=== PATIENT | male | born 1940 | race Caucasian/White ===

== ENCOUNTER 2018-10-14 11:46 | Outpatient (CLI) | payer MEDICARE ==
[~2018-10-14] VITALS: Ht 177.8 cm; Wt 87.1 kg
[2018-10-14] MEDS ORDERED: LISI10TA2 PO (12:03)
[2018-10-14] MEDS ORDERED: FLUT1DIS26 IH (12:03)
[2018-10-14] MEDS ORDERED: FEXO1TAB43 PO (12:03)
[2018-10-14 12:15] VITALS: BP 135/92
== END 2018-10-14 12:43 | disposition home or self-care (01) ==
LOC: PREOP 11:46
PROVIDERS: ATTEND Surgery
DX: Z01.818 Encounter for other preprocedural examination (principal)
CPT/HCPCS: 87081

== ENCOUNTER 2018-10-29 06:00 | Day surgery (SDC) | payer MEDICARE ==
[~2018-10-29] VITALS: Ht 175.3 cm; Wt 84.9 kg
[~2018-10-29 06:00] MED LIST: FEXO1TAB43 PO; FLUT1DIS26 IH; LISI10TA2 PO
--- OUTSIDE RECORDS SUMMARY | 2018-10-29 06:10 | XMS REPORT ---
Discharge Summary 2.1 Created on: CATHERINE FARFAN : 1940 Sex: Male Author Author GAVIN CORTES Unknown Address [address] [facility] [address] [place], [place] [id number] Care Team Providers Care Intelligence Operations Name Role Phone Xwatchlist [facility] Attending DARBY MIRANDA BUZZ [facility] Functional Status No Data Found Immunization Immunization Date Status Additional Notes Code Code System influenza, split (incl. purified surface antigen) 2004 Completed 15 CVX pneumococcal polysaccharide PPV23 06/03/2005 Completed 33 CVX influenza, unspecified formulation 07/15/2012 Completed 88 CVX pneumococcal, unspecified formulation 07/15/2012 Completed 109 CVX DTaP-Hep B-IPV 02/09/2002 Completed 110 CVX Mental Status No Data Found Results HEMOGLOBIN A1C - Collect Date/Time: 09/30/2018 06:48 [facility] [employer] ID: [id number] [address] [facility] [address], [place], [place], [address] [employer] ID: [id number] [address] [facility] [address], [place], [place], [address] LOINC: 49244-8 Test Value Unit Reference Range Code Code System HGB A1C 5.4 % L=4.0 H=6.4 24880-9 LOINC Est Avg Glucose 108.3 mg/dL 30153-1 LOINC LIPID PANEL - Collect Date/Time: 09/30/2018 06:48 [facility] [employer] ID: [id number] [address] [facility] [address], [place], [place], [address] [employer] ID: [id number] [address] [facility] [address], [place], [place], [address] LOINC: 84754-8 Test Value Unit Reference Range Code Code System TRIGLYCERIDES 52 MG/DL L=0 H=135 3043-7 LOINC CHOLESTEROL 139 MG/DL L=0 H=199 2093-3 LOINC HDL 37 MG/DL L=27 H=67 2085-9 LOINC TOT CHOL/HDL 3.8 L= 0.0 H=5.0 LDL (CALC) 92 MG/DL L= 0 H=129 06261-2 LOINC COMPREHENSIVE METABOLIC PANEL - Collect Date/Time: 09/30/2018 06:48 [place] [employer] ID: [id number] [address] [facility] [address], [place], [place], [id number] [facility] ID: [id number] [address] [facility] [address], [place], [place], [address] LOINC: 65531-7 Test Value Unit Reference Range Code Code System GLUCOSE 166 MG/DL L= 70 H=100 2345-7 LOINC SODIUM 138 MEQ/L L= 135 H=148 2951-2 LOINC POTASSIUM 4.6 MEQ/L L= 3.5 H=5.3 2823-3 LOINC CHLORIDE 105 MEQ/L L= 96 H=110 2075-0 LOINC CO2 27 MEQ/L L=22 H=29 2028-9 LOINC BUN 20 MG/DL L=8 H=22 3094-0 LOINC CREATININE 0.8 MG/DL L =0.6 H=1.6 2160-0 LOINC SGOT/AST 24 IU/L L=10 H=40 1920-8 LOINC SGPT/ALT 14 IU/L L=8 H=54 1742-6 LOINC ALK PHOS 110 IU/L L= 35 H=115 6768-6 LOINC TOTAL PROTEIN 6.7 G/DL L=5.5 H=8.5 2885-2 LOINC ALBUMIN 3.3 G/DL L= 3.1 H=5.4 1751-7 LOINC TOTAL BILI 0.4 MG/DL L =0.0 H=1.5 1975-2 LOINC CALCIUM 8.8 MG/DL L= 8.2 H=10.6 52975-7 LOINC AGE 77 yrs GFR NonAA 94 GFR AA 114 eGFR 94 mL/min/1.7 eGFR AA* >60 CBC W/ AUTO DIFF (RFLX MAN DIFF IF IND) - Collect Date/Time: 09/30/2018 06:48 [facility] ID: [id number] [address], [place], [place], [id number] [facility] ID: [id number] [address], [place], [place], [address] LOINC: 12165-0 Test Value Unit Reference Range Code Code System WBC 3.8 TH/CMM L=4.5 H=10.8 58916-7 LOINC RBC 4.53 ML/CMM L= 4.70 H=6.10 789-8 LOINC HGB 12.7 G/DL L=14.0 H=18.0 718-7 LOINC HCT 40.8 % L=42.0 H=52.0 4544-3 LOINC MCV 90 FL L=81 H =99 MCH 28.0 PG L=27.0 H=33.0 MCHC 31.1 G/DL L=31.0 H=36.0 RDW SD 48 FL L=36 H=50 RDW CV 14.3 % L=0.0 H=14.8 MPV 10.5 FL L=9.3 H=12.5 PLT 103 TH/CMM L=130 H=440 777-3 LOINC NRBC# 0.00 TH/CMM L= 0.00 H=0.00 NRBC% 0.0 /100WBC L= 0.0 H=2.0 %NEUT 80.9 % %LYMP 14.1 % %MONO 4.2 % %EOS 0.0 % %BASO 0.3 % #NEUT 3.05 TH/CMM L= 2.10 H=8.20 #LYMP 0.53 TH/CMM L= 0.90 H=5.20 #MONO 0.16 TH/CMM L= 0.16 H=1.00 #EOS 0.00 TH/CMM L= 0.00 H=0.80 #BASO 0.01 TH/CMM L= 0.00 H=0.20 MANUAL DIFF NOT IND OCCULT BLOOD iFOBT - Collect Date/Time: 09/29/2018 23:05 [facility] ID: [id number] [address] [facility] [address], [place], [place], [id number] [facility] ID: [id number] [address] [facility] [address], [place], [place], [address] LOINC: 2335-8 Test Value Unit Reference Range Code Code System OCC BLD STOOL NEGATIVE NORMAL: NEGATIVE 2335-8 LOINC RESPIRATORY PANEL - Collect Date/Time: 09/29/2018 16:28 [facility] ID: [id number] [address] [facility] [address], [place], [place], [address] [facility] ID: [id number] [address] [facility] [address], [place], [place], [id number] LOINC: Test Value Unit Reference Range Code Code System Adenovirus Not Detected NEG: Not Detected Coronavirus 229E Not Detected NEG: Not Detected Coronavirus HKU1 Not Detected NEG: Not Detected Coronavirus NL63 Not Detected NEG: Not Detected Coronavirus OC43 Not Detected NEG: Not Detected Human Metapneumoviru Not Detected NEG: Not Detected Human Rhinov/Enterov Not Detected NEG: Not Detected Influenza A Not Detected NEG: Not Detected Influenza B Not Detected NEG: Not Detected Parainfluenza Virus1 Not Detected NEG: Not Detected Parainfluenza Virus2 Not Detected NEG: Not Detected Parainfluenza Virus3 Not Detected NEG: Not Detected Parainfluenza Virus4 Not Detected NEG: Not Detected Resp Syncytial Virus DETECTED NEG: Not Detected Bordetella pertussis Not Detected NEG: Not Detected 64271-2 LOINC Chlamydophila pneumo Not Detected NEG: Not Detected Mycoplasma pneumonia Not Detected NEG: Not Detected Social History Type Status Start Date End Date Code Code System Smoking History Never smoker (Never Smoked) 995878428 SNOMED-CT Vital Signs Vital Sign Value Unit [place] Value [place] Unit Date/Time Recent/Initial? Code Code System Body Mass Index 24.98 kg/m2 09/30/2018 03:18 Most Recent 22038-0 LOINC Body Mass Index 25.12 kg/m2 09/29/2018 14:15 Initial 80533-0 LOINC Systolic Blood Pressure 143 mm[Hg] 09/30/2018 11:05 Most Recent 8480-6 LOINC Diastolic Blood Pressure 82 mm[Hg] 09/30/2018 11:05 Most Recent 8462-4 LOINC Systolic Blood Pressure 109 mm[Hg] 09/29/2018 14:15 Initial 8480-6 LOINC Diastolic Blood Pressure 71 mm[Hg] 09/29/2018 14:15 Initial 8462-4 LOINC Body Surface Area 2.06 m2 09/30/2018 03:18 Most Recent 3140-1 LOINC Body Surface Area 2.07 m2 09/29/2018 14:15 Initial 3140-1 LOINC Height 182.8800 cm 72.00 in 09/30/2018 03:18 Most Recent 8302-2 LOINC Height 182.8800 cm 72.00 in 09/29/2018 14:15 Initial 8302-2 LOINC O2 Saturation 91 % 09/30/2018 11:05 Most Recent 58208-5 LOINC O2 Saturation 94 % 09/29/2018 14:15 Initial 47760-5 LOINC Pulse 52.0 /min 09/30/2018 11:05 Most Recent 8867-4 LOINC Pulse 54.0 /min 09/29/2018 14:15 Initial 8867-4 LOINC Respiration 18 /min 09/30/2018 11:05 Most Recent 9279-1 LOINC Respiration 22 /min 09/29/2018 14:15 Initial 9279-1 LOINC Temperature 36.9 Micheline 98.4 F 09/30/2018 11:05 Most Recent 8310-5 LOINC Temperature 36.6 Micheline 97.8 F 09/29/2018 14:15 Initial 8310-5 LOINC Weight 83.5517 kg 184.20 lbs 09/30/2018 03:18 Most Recent 30517-4 LOINC Weight 84.0052 kg 185.20 lbs 09/29/2018 14:15 Initial 74290-9 [facility] Assessment You had the following problems: ASTHMA WITH EXACERBATION PNEUMONIA COPD HTN Hospital Discharge Instructions Should you have any questions prior to discharge, please contact a member of your healthcare team. If you have left the hospital and have any questions, please contact your primary care physician. HOME MEDICATION INSTRUCTIONS: Verbalizes understanding of instructions. HOME MEDS RETURNED TO PATIENT: N/A. HOME DIET: Regular, As tolerated. ACTIVITY INSTRUCTIONS(list limitations): Activity as Tolerated. SPECIAL INSTRUCTIONS: DIAGNOSIS: ASTHMA EXACERBATION, RSV GOALS: MET DISCHARGE TO HOME DISCONTINUE IV SITE COMPLETE PULSE OX STUDY PRIOR TO DISCHARGE SMOKING CESSATION: Smoking and second hand smoke is harmful, to your health.. Smoking has been linked to cancer, cardiac disease, COPD, and asthma.. For more information you can call:, 1-720-BEE-STOP, or 0-881-YYIADomosite.. A pamphlet on smoking was given to you, at admission.. PRIMARY CARE PROVIDER: MIRANDA PASTOR IMMUNIZATIONS GIVEN DURING HOSPITALIZATION: Influenza, Pneumococcal, PT. DENIES WANTING EITHER CONTACT PHYSICIAN IF YOU EXPERIENCE ANY: TEMPERATURE GREATER THAN 102, CHEST PAIN, SHORTNESS OF BREATH THAT DOESN'T IMPROVE WITH REST, ANYTHING ABNORMAL OR CONCERNING. FOLLOW UP APPOINTMENT: SEE MIRANDA PASTOR ON 10/07/2018 AT 8:30 A.M. PERSONAL ITEMS RETURNED: N/A. INSTRUCTIONS GIVEN AND DISCHARGE TO: Patient. INSTRUCTIONS GIVEN BY (TYPE IN NAME AND DATE) Nathan ANGELO RN SCRIPTS WRITTEN BY DOCTOR GIVEN TO PATIENT? PREDNISONE SCRIPT WAS SENT TO [facility] Reason For Referral Hospital Course You were admitted to [facility] on 09/29/2018 14:05 with a principal diagnosis of Respiratory syncytial virus pneumonia You were discharged from [facility] on 09/30/2018 15:00 Medications Medication Start Date End Date Route Frequency Dose Code Code System Levaquin 500MG Oral Tablet 09/30/2018 Unknown BY MOUTH DAILY 1 TABLET 993976 RxNorm predniSONE 20MG Oral Tablet 09/30/2018 Unknown BY MOUTH 1 TABLET 995531 RxNorm Lisinopril 10MG Oral Tablet 09/30/2018 Unknown ORAL DAILY 10 MILLIGRAMS 681540 RxNorm Ipratropium [place]-Albuterol Sulfate 0.5MG/3ML-3MG/3ML Inhalation Solution 09/30/2018 Unknown INHALATION NEEDED EVERY 4 HR 1 VIAL 8557657 RxNorm Vane 180MG Oral Tablet 09/30/2018 Unknown ORAL DAILY 180 MILLIGRAMS 326287 RxNorm ALBUTEROL SULFATE 90 MCG/ACTUATION INHALATION HFA AEROSOL INHALER 09/30/2018 Unknown INHALATION NEEDED EVERY 4 HR 2 PUFF RxNorm ADVAIR DISKUS 250-50 MCG/DOSE INHALATION BLISTER WITH DEVICE 09/30/2018 Unknown INHALATION DAILY 1 PUFF RxNorm Procedures Procedure Name Date Status Code Code System APPENDECTOMY completed 552421293 SNOMED CT Detached retina completed 25001890 SNOMED CT Hernia repair completed 85504512 SNOMED CT BIOPSY OF PROSTATE completed 831231643 SNOMED CT Implants No Data Found Problems Problem Start Date Resolved Date Status Code Code System ASTHMA WITH EXACERBATION active 703594300 SNOMED-CT PNEUMONIA active 691225987 SNOMED-CT COPD active 20124290 SNOMED-CT HTN active 33201784 SNOMED-CT ASTHMA 09/29/2018 resolved 103938899 SNOMED-CT ESSENTIAL HYPERTENSION 09/29/2018 resolved 94620346 SNOMED- CT Allergies Allergy Substance Reaction Severity Start Date Concern Status Code Code System SULFA (sulfonamide) Hives (SNOMED-CT: 629532640), Itching ( SNOMED-CT: 699544227) Mild to Moderate Active RxNorm SULFONAMIDE Mild to Moderate Active RxNorm CEPHALEXIN Mild to Moderate Active 2231 RxNorm AMOXICILLIN Hives (SNOMED-CT: 105829696) Mild to Moderate Active 723 RxNorm ASACOL Mild to Moderate Active 644196 RxNorm KEFLEX Mild to Moderate Active 992031 RxNorm PREDNISONE DOSE JENNIE Rash (SNOMED-CT: 613618932) Mild to Moderate Active RxNorm Plan of Treatment No Data Found Encounters No Data Found Goals No Data Found Discharge Medications No Data Found Discharge Diagnosis Discharge Diagnosis Diagnosis Code Start Date Respiratory syncytial virus pneumonia J121 09/29/2018 Health Concerns Section No Data Found
--- OUTSIDE RECORDS SUMMARY | 2018-10-29 06:10 | XMS REPORT ---
Patient Summary 2.1 Created on: CATHERINE FARFAN : 1940 Sex: Male Author Author GONZALO SEYMOUR Organization Unknown Address [address] [facility] [address] [place], [place] [id number] Care Team Providers Care Chairman Ceo Name Role Phone Watchlist [facility] Attending DARBY MIRANDA ANODISER [facility] Unavailable Functional Status No Data Found Immunization Immunization Date Status Additional Notes Code Code System influenza, split (incl. purified surface antigen) 2004 Completed 15 CVX pneumococcal polysaccharide PPV23 06/03/2005 Completed 33 CVX influenza, unspecified formulation 07/15/2012 Completed 88 CVX pneumococcal, unspecified formulation 07/15/2012 Completed 109 CVX DTaP-Hep B-IPV 02/09/2002 Completed 110 CVX Mental Status No Data Found Results LIPID PANEL - Collect Date/Time: 09/30/2018 06:48 [facility] [employer] ID: [id number] [address] [facility] [address], [place], [address] [employer] ID: [id number] [address] [facility] [address], [place], [place], [address] LOINC: 00180-3 Test Value Unit Reference Range Code Code System TRIGLYCERIDES 52 MG/DL L=0 H=135 3043-7 LOINC CHOLESTEROL 139 MG/DL L=0 H=199 2093-3 LOINC HDL 37 MG/DL L=27 H=67 2085-9 LOINC TOT CHOL/HDL 3.8 L= 0.0 H=5.0 LDL (CALC) 92 MG/DL L= 0 H=129 31376-1 LOINC COMPREHENSIVE METABOLIC PANEL - Collect Date/Time: 09/30/2018 06:48 [facility] [employer] ID: [id number] [address], [place], [place], [address] [place] [employer] ID: [id number] [address], [place], [place], [address] LOINC: 30906-0 Test Value Unit Reference Range Code Code [...] LOINC CALCIUM 8.8 MG/DL L= 8.2 H=10.6 04467-4 LOINC AGE 77 yrs GFR NonAA 94 GFR AA 114 eGFR 94 mL/min/1.7 eGFR AA* >60 CBC W/ AUTO DIFF (RFLX MAN DIFF IF IND) - Collect Date/Time: 09/30/2018 06:48 [place] [employer] ID: [id number] [address], [place], [id number] [facility] [employer] ID: [id number] [address], [place], [address] LOINC: 03514-2 Test Value Unit Reference Range Code Code System WBC 3.8 TH/CMM L=4.5 H=10.8 52220-8 LOINC RBC 4.53 ML/CMM L= 4.70 H=6.10 [...] BLOOD iFOBT - Collect Date/Time: 09/29/2018 23:05 [facility] [employer] [facility] ID: [id number] [address], [place], [place], [address] [place] [employer] ID: [id number] [address] [facility] [address], [place], [place], [address] LOINC: 2335-8 Test Value Unit Reference Range Code Code System OCC BLD STOOL NEGATIVE NORMAL: NEGATIVE 2335-8 LOINC RESPIRATORY PANEL - Collect Date/Time: 09/29/2018 16:28 [facility] ID: [id number] [address] [facility] [address], [place], [place], [address] [facility] ID: [id number] [address] [facility] [address], [place], [place], [address] LOINC: Test Value Unit Reference Range Code [...] Bordetella pertussis Not Detected NEG: Not Detected 05287-7 INC Chlamydophila pneumo Not Detected NEG: Not Detected Mycoplasma pneumonia Not Detected NEG: Not Detected Social History Type Status Start Date End Date Code Code System Smoking History Never smoker (Never Smoked) 344217468 SNOMED-CT Vital Signs Vital Sign Value Unit [place] Value [place] Unit Date/Time Recent/Initial? Code Code System Body Mass Index 24.98 kg/m2 09/30/2018 03:18 Most Recent 05634-8 LOINC Body Mass Index 25.12 kg/m2 09/29/2018 14:15 Initial 95013-3 LOINC Systolic Blood Pressure 137 mm[Hg] 09/30/2018 07:49 Most Recent 8480-6 LOINC Diastolic Blood Pressure 82 mm[Hg] 09/30/2018 07:49 Most Recent 8462-4 LOINC Systolic Blood Pressure 109 mm[Hg] 09/29/2018 14:15 Initial 8480-6 [facility] Diastolic Blood Pressure 71 mm[Hg] 09/29/2018 14:15 Initial 8462-4 INC Body Surface Area 2.06 m2 09/30/2018 03:18 Most Recent 3140-1 INC Body Surface Area 2.07 m2 09/29/2018 14:15 Initial 3140-1 INC Height 182.8800 cm 72.00 in 09/30/2018 03:18 Most Recent 8302-2 INC Height 182.8800 cm 72.00 in 09/29/2018 14:15 Initial 8302-2 INC O2 Saturation 100 % 09/30/2018 07:49 Most Recent 16006-2 INC O2 Saturation 94 % 09/29/2018 14:15 Initial 15797-5 INC Pulse 72.0 /min 09/30/2018 07:49 Most Recent 8867-4 [facility] Pulse 54.0 /min 09/29/2018 14:15 Initial 8867-4 INC Respiration 17 /min 09/30/2018 07:49 Most Recent 9279-1 INC Respiration 22 /min 09/29/2018 14:15 Initial 9279-1 INC Temperature 36.8 Micheline 98.2 F 09/30/2018 07:49 Most Recent 8310-5 INC Temperature 36.6 Micheline 97.8 F 09/29/2018 14:15 Initial 8310-5 INC Weight 83.5517 kg 184.20 lbs 09/30/2018 03:18 Most Recent 50425-9 [facility] Weight 84.0052 kg 185.20 lbs 09/29/2018 14:15 Initial 07056-9 [facility] Medications Medication Start Date End Date Route Frequency Dose Code Code System predniSONE 20MG Oral Tablet 09/30/2018 Unknown BY MOUTH 1 TABLET 172250 RxNorm Lisinopril 10MG Oral Tablet 09/30/2018 Unknown ORAL DAILY 10 MILLIGRAMS 978554 RxNorm Ipratropium [place]-Albuterol Sulfate 0.5MG/3ML-3MG/3ML Inhalation Solution 09/30/2018 Unknown INHALATION NEEDED EVERY 4 HR 1 VIAL 6746068 RxNorm Vane 180MG Oral Tablet 09/30/2018 Unknown ORAL DAILY 180 MILLIGRAMS 842463 RxNorm ALBUTEROL SULFATE 90 MCG/ACTUATION INHALATION HFA AEROSOL INHALER 09/30/2018 Unknown INHALATION NEEDED EVERY 4 HR 2 PUFF RxNorm ADVAIR DISKUS 250-50 MCG/DOSE INHALATION BLISTER WITH DEVICE 09/30/2018 Unknown INHALATION DAILY 1 PUFF RxNorm Assessment You had the following problems: ASTHMA [...] asthma.. For more information you can call:, [phone]-BZJ-STOP, or [phone]-[place].. A pamphlet on smoking was given to [...] TO PATIENT? PREDNISONE SCRIPT WAS SENT TO [facility] [place] Reason For Referral Procedures Procedure Name Date Status Code Code System APPENDECTOMY completed 904041371 SNOMED CT Detached retina completed 93205214 SNOMED CT Hernia repair completed 37590288 SNOMED CT BIOPSY OF PROSTATE completed 106417313 SNOMED CT Implants No Data Found Problems Problem Start Date Resolved Date Status Code Code System ASTHMA WITH EXACERBATION active 353731158 SNOMED-CT PNEUMONIA active 105744952 SNOMED-CT COPD active 96508141 SNOMED-CT HTN active 58109758 SNOMED-CT ASTHMA 09/29/2018 resolved 650559726 SNOMED-CT ESSENTIAL HYPERTENSION 09/29/2018 resolved 76276605 SNOMED- CT Allergies Allergy Substance Reaction Severity Start Date Concern Status Code Code System SULFA (sulfonamide) Hives (SNOMED-CT: 767746364), Itching ( SNOMED-CT: 054764854) Mild to Moderate Active RxNorm SULFONAMIDE Mild to Moderate Active RxNorm CEPHALEXIN Mild to Moderate Active 2231 RxNorm AMOXICILLIN Hives (SNOMED-CT: 245447542) Mild to Moderate Active 723 RxNorm ASACOL Mild to Moderate Active 961507 RxNorm KEFLEX Mild to Moderate Active 286943 RxNorm PREDNISONE DOSE JENNIE Rash (SNOMED-CT: 253599166) Mild to Moderate Active RxNorm Plan of Treatment HEMOGLOBIN A1C 09/30/2018 LOINC: 25734-1 CULTURE SPUTUM 09/29/2018 LOINC: 624-7 Encounters No Data Found Goals No Data Found Health Concerns Section No Data Found
--- OUTSIDE RECORDS SUMMARY | 2018-10-29 06:11 | XMS REPORT ---
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 Name Role Phone lAeja Newell PCP Aleja Newell PreferredProvider Allergies and Adverse Reactions Name Reaction Notes PENICILLINS SULFA (SULFONAMIDES) prednisone Blisters in Mouth, upset stomach dirrhea Plan of Treatment Planned Activity Comments Planned Date Planned Time Plan/Goal Liver function panel 07/02/2015 12:00 AM f/u prostate surgery, elevated PSA CT CHEST W/CONTRAST 06/17/2017 12:00 AM BMP 06/22/2017 12:00 AM TSH 07/22/2018 12:00 AM PSA 07/22/2018 12:[address] CHEST W/CONTRAST 07/28/2018 12:00 AM MRI of shoulder, with and without contrast material 12/29/2013 12:00 AM Medications Active Name Start Date Estimated Completion Date SIG Comments Advair Diskus 250-50 mcg/dose inhalation blister with device 10/13/2014 INHALE 1 PUFF BY INHALATION ROUTE 2 TIMES PER DAY IN THE MORNING AND EVENING APPROXIMATELY 12 HOURS APART Advair Diskus 250-50 mcg/dose inhalation blister with device 06/21/2015 INHALE 1 PUFF BY INHALATION ROUTE 2 TIMES PER DAY IN THE MORNING AND EVENING APPROXIMATELY 12 HOURS APART Advair Diskus 250-50 mcg/dose inhalation blister with device 12/18/2015 INHALE 1 PUFF BY INHALATION ROUTE 2 TIMES PER DAY IN THE MORNING AND EVENING APPROXIMATELY 12 HOURS APART Vane Allergy oral Advair Diskus 250-50 mcg/dose inhalation blister with device 07/26/2018 INHALE 1 PUFF BY INHALATION ROUTE 2 TIMES PER DAY IN THE MORNING AND EVENING APPROXIMATELY 12 HOURS APART ipratropium-albuterol 0.5 mg-3 mg(2.5 mg base)/3 mL inhalation solution for nebulization 07/27/2018 INHALE 3 MILLILITERS BY NEBULIZATION ROUTE 4 TIMES PER DAY AND NEEDED, UP TO 6 DOSES PER DAY lisinopril 10 mg oral tablet 09/02/2018 TAKE 2 TABLETS BY ORAL ROUTE DAILY Ventolin HFA 90 mcg/actuation inhalation HFA aerosol inhaler 09/02/2018 inhale 1 puff (90 mcg) by inhalation route every 4-6 hours as needed potassium chloride 20 mEq oral tablet extended release 10/07/2018 TAKE 1 TABLET (20 MEQ) BY ORAL ROUTE ONCE DAILY WITH FOOD FOR 3 DAYS Lasix 40 mg oral tablet 10/07/2018 TAKE 1 TABLET (40 MG) BY ORAL ROUTE ONCE DAILY FOR 3 DAYS Name Start Date Expiration Date SIG Comments Cipro 500 mg oral tablet 10/20/2011 10/27/2011 take 1 tablet (500 mg) by oral route every 12 hours for 7 days doxycycline hyclate 100 mg oral tablet 12/15/2011 12/25/2011 take 1 tablet ( 100 mg) by oral route every 12 hours for 10 days prednisone 20 mg oral tablet 12/15/2011 12/31/2011 take 60mg daily x4 days then 40mg x4 days then 20mg x4 days then 10mg x4 days. hydrochlorothiazide 25 mg oral tablet 01/30/2012 01/24/2013 take 1 tablet by oral route daily fexofenadine 60 mg oral tablet 07/15/2012 07/10/2013 take 1 tablet (60 mg) by oral route 2 times per day for 90 days doxycycline hyclate 100 mg oral tablet 07/30/2012 08/09/2012 take 1 tablet ( 100 mg) by oral route 2 times per day for 10 days doxycycline monohydrate 100 mg oral tablet 11/17/2012 11/24/2012 take 1 tablet (100 mg) by oral route 2 times per day for 7 days albuterol sulfate 90 mcg/actuation inhalation HFA aerosol inhaler 11/17/2012 06/15/2013 Inhale 2 puff (90 mcg/actuation) by inhalation route every four hours as needed for 30 days Cipro 500 mg oral tablet 06/02/2013 06/09/2013 take 1 tablet (500 mg) by oral route 2 times per day for 7 days Zithromax Z-Nikolas 250 mg oral tablet 12/29/2013 01/03/2014 take 2 tablets (500 mg) by oral route once daily for 1 day then 1 tablet (250 mg) by oral route once daily for 4 days Zithromax Z-Nikolas 250 mg oral tablet 07/03/2014 07/08/2014 take 2 tablets ( 500 mg) by oral route once daily for 1 day then 1 tablet (250 mg) by oral route once daily for 4 days Zithromax Z-Nikolas 250 mg oral tablet 09/08/2014 09/10/2014 take 2 tablets (500 mg ) by oral route once daily for 1 day then 1 tablet (250 mg) by oral route once daily for 4 days Macrobid 100 mg oral capsule 09/11/2014 09/18/2014 take 1 capsule (100 mg) by oral route every 12 hours with food for 7 days doxycycline monohydrate 100 mg oral tablet 08/12/2016 08/19/2016 take 1 tablet (100 mg) by oral route 2 times per day for 7 days Levaquin 500 mg oral tablet 08/25/2016 09/01/2016 take 1 tablet (500 mg) by oral route once daily for 7 days Levaquin 500 mg oral tablet 11/18/2016 11/25/2016 take 1 tablet (500 mg) by oral route once daily for 7 days Levaquin 500 mg oral tablet 03/13/2017 03/16/2017 take 1 tablet (500 mg) by oral route once daily for 7 days doxycycline monohydrate 100 mg oral tablet 06/17/2017 06/24/2017 take 1 tablet by oral route 2 times a day for 7 days doxycycline monohydrate 100 mg oral tablet 07/27/2018 08/03/2018 take 1 tablet by oral route 2 times a day for 7 days Levaquin 500 mg oral tablet 09/28/2018 10/05/2018 take 1 tablet (500 mg) by oral route once daily for 7 days Discontinued Name Start Date Discontinued Date SIG Comments Alphagan P 0.15 % ophthalmic drops 07/15/2012 instill 1 drop in affected eye 2 times a day Levaquin 750 mg oral tablet 11/08/2010 11/08/2010 take 1 tablet (750 mg) by oral route once daily for 7 days Medrol (Nikolas) 4 mg oral tablets,dose pack 11/08/2010 03/25/2011 take as directed Advair Diskus 250-50 mcg/dose inhalation blister with device 01/08/20112011 inhale 1 puff by inhalation route 2 times per day in the morning and evening approximately 12 hours apart for 90 days Brovana 15 mcg/2 mL inhalation solution for nebulization 08/29/2011 07/15/2012 inhale 2 milliliters (15 mcg) by inhalation route 2 times per day Zithromax Z-Nikolas 250 mg oral tablet 10/20/2011 10/20/2011 take 2 tablets (500 mg) by oral route once daily for 1 day then 1 tablet (250 mg) by oral route once daily for 4 days Pulmicort Flexhaler 180 mcg/actuation inhalation aerosol powdr breath activated 12/15/2011 07/15/2012 inhale 2 puffs (360 mcg) by inhalation route 2 times per day Advair HFA 230-21 mcg/actuation inhalation HFA aerosol inhaler 07/15/201208/27 inhale 2 puffs by inhalation route 2 times per day in the morning and evening prednisone 20 mg oral tablet 11/17/2012 06/02/2013 take 3 tabs x2 days then 2 tabs x2 days then 1 tab x2 days Tudorza Pressair 400 mcg/actuation inhalation aerosol powdr breath activated 06/02/2013 inhale 1 puff (400 mcg) by inhalation route every 12 hours prednisone 20 mg oral tablet 06/02/2013 08/17/2013 take 2 tabs x2 days then 1 tab x4 days prednisone 20 mg oral tablet 08/17/2013 12/29/2013 take 60mg x2 days then 40mg x2 days then 1 tablet daily x4 days. cyclobenzaprine 10 mg oral tablet 12/29/2013 07/03/2014 take 1 tablet by mouth daily at HS albuterol sulfate 90 mcg/actuation inhalation HFA aerosol inhaler 02/21/2014 INHALE 2 PUFF (90 MCG/ACTUATION) BY INHALATION ROUTE EVERY FOUR HOURS NEEDED FOR 30 DAYS hydrochlorothiazide 25 mg oral tablet 05/01/2014 07/02/2015 TAKE 1 TABLET BY ORAL ROUTE DAILY Advair Diskus 250-50 mcg/dose inhalation blister with device 08/04/20142016 inhale 1 puff by inhalation route 2 times per day in the morning and evening approximately 12 hours apart change to Breo prednisone 20 mg oral tablet 07/02/2015 12/18/2015 take 60mg x2 days, then 40mg x2 days, then 20mg x4 days Breo Ellipta 200-25 mcg/dose inhalation blister with device 08/12/20162016 inhale 1 puff by inhalation route once daily at the same time each day Incruse Ellipta 62.5 mcg/actuation inhalation blister with device 08/12/2016 inhale 1 puff (62.5 mcg) by inhalation route once daily at the same time each day prednisone 20 mg oral tablet 08/25/2016 08/25/2016 Take 1 tab daily for 5 days ProAir HFA 90 mcg/actuation inhalation HFA aerosol inhaler 09/02/20182018 INHALE 1 PUFF (90 MCG) BY INHALATION ROUTE EVERY 4-6 HOURS NEEDED Changed to ventolin Problem List Description Status Onset Asthma Active Chronic Obstructive Pulmonary Disease Active Hypertension Active Essential hypertension Active 03/09/2017 Chronic obstructive pulmonary disease with acute exacerbation Active 2016 Vital Signs Date Time BP-Sys(mm[Hg] BP-Muriel(mm[Hg]) HR(bpm) RR(rpm) Temp WT HT HC BMI BSA BMI Percentile O2 Sat(%) 10/06/2018 11:15:00 AM 150 mmHg 90 mmHg 102 bpm 21 rpm 98.6 F 194.25 lbs 72 in 26.3448 kg/m 2.1157 m 90 % 09/29/2018 1:15:00 PM 138 mmHg 76 mmHg 55 bpm 24 rpm 98.2 F 193 lbs 72 in 26.18 kg/m2 2.11 m2 93 % 09/28/2018 3:18:00 PM 138 mmHg 80 mmHg 99 bpm 20 rpm 98.8 F 195 lbs 72 in 26.4465 kg/m 2.1197 m 88 % 09/02/2018 1:22:00 PM 130 mmHg 74 mmHg 86 bpm 18 rpm 98.6 F 198 lbs 72 in 26.85 kg/m2 2.14 m2 96 % 07/22/2018 9:38:00 AM 150 mmHg 100 mmHg 86 bpm 18 rpm 98.6 F 191 lbs 72 in 25.904 kg/m 2.0979 m 95 % 06/17/2017 9:33:00 AM 137 mmHg 80 mmHg 78 bpm 18 rpm 97.8 F 192 lbs 72 in 26.04 kg/m2 2.10 m2 97 % 03/09/2017 8:58:00 AM 148 mmHg 84 mmHg 93 bpm 18 rpm 97.2 F 197.375 lbs 72 in 26.7686 kg/m 2.1326 m 95 % 11/18/2016 10:16:00 AM 160 mmHg 90 mmHg 102 bpm 18 rpm 98.2 F 202 lbs 72 in 27.40 kg/m2 2.16 m2 93 % 08/12/2016 1:28:00 PM 132 mmHg 72 mmHg 84 bpm 18 rpm 97.5 F 208.25 lbs 72 in 28.2435 kg/m 2.1906 m 97 % 12/18/2015 8:59:00 AM 132 mmHg 66 mmHg 78 bpm 18 rpm 97.5 F 194.25 lbs 72 in 26.34 kg/m2 2.12 m2 95 % 07/02/2015 2:12:00 PM 134 mmHg 68 mmHg 110 bpm 18 rpm 97.8 F 200.5 lbs 72 in 27.1924 kg/m 2.1494 m 100 % 09/05/2014 11:08:00 AM 120 mmHg 60 mmHg 88 bpm 20 rpm 98.8 F 204.6 lbs 72 in 27.75 kg/m2 2.17 m2 92 % 07/03/2014 4:03:00 PM 124 mmHg 78 mmHg 90 bpm 22 rpm 98.2 F 207.8 lbs 72 in 28.1825 kg/m 2.1882 m 95 % 12/29/2013 1:33:00 PM 126 mmHg 76 mmHg 95 bpm 18 rpm 101.4 F 207.125 lbs 72 in 28.09 kg/m2 2.18 m2 91 % 08/17/2013 10:42:00 AM 132 mmHg 68 mmHg 93 bpm 18 rpm 97.6 F 209.5 lbs 72 in 28.413 kg/m 2.1971 m 92 % 06/02/2013 11:27:00 AM 136 mmHg 74 mmHg 111 bpm 18 rpm 98.5 F 204.5 lbs 72 in 27.73 kg/m2 2.17 m2 93 % 11/29/2012 11:14:00 AM 142 mmHg 70 mmHg 88 bpm 20 rpm 98.3 F 211.125 lbs 97 % 11/17/2012 10:55:00 AM 132 mmHg 68 mmHg 86 bpm 20 rpm 97.6 F 207.5 lbs 72 in 28.1418 kg/m 2.1866 m 93 % 07/15/2012 9:37:00 AM 128 mmHg 66 mmHg 72 bpm 18 rpm 97.8 F 204.375 lbs 72 in 27.72 kg/m2 2.17 m2 99 % 12/15/2011 3:15:00 PM 130 mmHg 64 mmHg 75 bpm 20 rpm 99.1 F 205.5 lbs 72 in 27.8705 kg/m 2.1761 m 94 % 10/20/2011 11:00:00 AM 140 mmHg 80 mmHg 110 bpm 18 rpm 99.2 F 89 % 08/29/2011 9:32:00 AM 142 mmHg 82 mmHg 93 bpm 18 rpm 97.4 F 205.5 lbs 72 in 27.8705 kg/m 2.1761 m 92 % 03/24/2011 9:31:00 AM 142 mmHg 74 mmHg 88 bpm 24 rpm 97.8 F 211 lbs 72 in 28.62 kg/m2 2.20 m2 92 % 01/08/2011 10:51:00 AM 160 mmHg 90 mmHg 69 bpm 22 rpm 98.2 F 207 lbs 94 % 11/08/2010 1:45:00 PM 138 mmHg 78 mmHg 68 bpm 22 rpm 100.3 F 207.125 lbs 91 % 08/26/2010 12:14:00 PM 138 mmHg 80 mmHg 72 bpm 20 rpm 97.9 F 205.25 lbs 12/20/2009 9:48:00 AM 154 mmHg 100 mmHg 80 bpm 16 rpm 98 F 214.25 lbs 08/29/2009 9:45:00 AM 122 mmHg 84 mmHg 60 bpm 20 rpm 98.8 F 212 lbs 72 in 28.7521 kg/m 2.2102 m Social History Name Description Comments denies alcohol use Regular Exercise Tobacco Never smoker 12/18/2015 - History of Procedures Date Ordered Description Order Status 12/17/2015 12:00 AM COMPLETE CBC W/AUTO DIFF WBC Reviewed 12/17/2015 12:00 AM COMPREHEN METABOLIC PANEL Reviewed 12/17/2015 12:00 AM LIPID PANEL Reviewed 12/17/2015 12:00 AM ASSAY OF PSA TOTAL Reviewed 12/17/2015 12:00 AM ASSAY OF PSA FREE Reviewed 12/18/2015 12:00 AM Decadron, Per 1 Mg [facility] [place] [address]-55 Reviewed 12/18/2015 12:00 AM Depo-Medrol 40mg Reviewed 08/29/2011 12:00 AM THER/PROPH/DIAG INJ SC/IM Reviewed 08/29/2011 12:00 AM Depo-Medrol 80 mg NDC#[id number] Reviewed 08/29/2011 12:00 AM Depo-Medrol 40 mg NDC#[id number] Reviewed 10/22/2011 12:00 AM URINALYSIS AUTO W/O SCOPE Reviewed 10/20/2011 12:00 AM URINE CULTURE/COLONY COUNT Reviewed 08/12/2016 12:00 AM Decadron, Per 1 Mg NDC# [address]-81 Reviewed 08/12/2016 12:00 AM Depo-Medrol 40mg Injection Reviewed 08/12/2016 12:00 AM ELECTROCARDIOGRAM TRACING Reviewed 12/15/2011 12:00 AM THER/PROPH/DIAG INJ SC/IM Reviewed 12/15/2011 12:00 AM Decadron 1 mg NDC#[id number] (Chad) Reviewed 12/15/2011 12:00 AM Depo-Medrol 80 mg NDC#[id number] Reviewed 11/18/2016 12:00 AM Decadron, Per 1 Mg N[facility]# [address]-54 Reviewed 11/18/2016 12:00 AM Depo-Medrol 40mg Injection Reviewed 03/09/2017 12:00 AM COMPLETE CBC W/AUTO DIFF WBC Reviewed 03/09/2017 12:00 AM COMPREHEN METABOLIC PANEL Reviewed 03/09/2017 12:00 AM LIPID PANEL Reviewed 03/09/2017 12:00 AM Decadron, Per 1 Mg NDC# [address]-20 Reviewed 03/09/2017 12:00 AM Depo-Medrol 40mg Injection Reviewed 03/09/2017 12:00 AM CHEST X-RAY 2VW FRONTAL&LATL Reviewed 03/09/2017 12:00 AM ASSAY THYROID STIM HORMONE Reviewed 06/17/2017 12:00 AM Decadron, Per 1 Mg NDC# [address]-56 Reviewed 06/17/2017 12:00 AM Depo-Medrol, Per 80 Mg NDC#6627-2788-14 Reviewed 06/17/2017 12:00 AM CHEST X-RAY 2VW FRONTAL&LATL Reviewed 07/15/2012 12:00 AM THER/PROPH/DIAG INJ SC/IM Reviewed 07/15/2012 12:00 AM Decadron 1 mg NDC#[id number] (Chad) Reviewed 07/15/2012 12:00 AM Depo-Medrol 80 mg [facility] [place]#[id number] Reviewed 07/15/2012 12:00 AM COMPLETE CBC W/AUTO DIFF WBC Reviewed 07/15/2012 12:00 AM COMPREHEN METABOLIC PANEL Reviewed 07/15/2012 12:00 AM LIPID PANEL Reviewed 07/15/2012 12:00 AM IMMUNIZATION ADMIN EACH ADD Reviewed 07/15/2012 12:00 AM IMMUNIZATION ADMIN Reviewed 07/15/2012 12:00 AM FLU VACCINE 3 YRS & > IM Reviewed 07/15/2012 12:00 AM PNEUMOCOCCAL VACC 23 CHANTELLE IM Reviewed 11/29/2012 12:00 AM ELECTROCARDIOGRAM COMPLETE Reviewed 07/22/2018 12:00 AM COMPLETE CBC W/AUTO DIFF WBC Returned 07/22/2018 12:00 AM COMPREHEN METABOLIC PANEL Returned 07/22/2018 12:00 AM LIPID PANEL Returned 07/22/2018 12:00 AM Decadron, Per 1 Mg [facility] [place]# [address]-61 Reviewed 07/22/2018 12:00 AM Depo-Medrol, Per 80 Mg [facility] [place]#8796-9492-33 Reviewed 07/22/2018 12:00 AM CHEST X-RAY 2VW FRONTAL&LATL Returned 07/28/2018 12:[address] ABD & PELV W/CONTRAST Returned 09/28/2018 12:00 AM COMPLETE CBC W/AUTO DIFF WBC Returned 09/28/2018 12:00 AM COMPREHEN METABOLIC PANEL Returned 09/28/2018 12:00 AM Decadron, Per 1 Mg [facility] [place]# [address]-55 Reviewed 09/28/2018 12:00 AM CHEST X-RAY 2VW FRONTAL&LATL Returned 09/28/2018 12:00 AM ASSAY OF NATRIURETIC PEPTIDE Returned 10/06/2018 12:00 AM COMPLETE CBC W/AUTO DIFF WBC Returned 10/06/2018 12:00 AM COMPREHEN METABOLIC PANEL Returned 10/06/2018 12:00 AM ASSAY OF NATRIURETIC PEPTIDE Returned 10/06/2018 12:00 AM CHEST X-RAY 2VW FRONTAL&LATL Returned 12/20/2009 12:00 AM IMMUNIZATION ADMIN Reviewed 12/20/2009 12:00 AM TETANUS VACCINE IM Reviewed 01/23/2010 12:00 AM COMPLETE CBC W/AUTO DIFF WBC Reviewed 01/23/2010 12:00 AM COMPREHEN METABOLIC PANEL Reviewed 01/23/2010 12:00 AM LIPID PANEL Reviewed 01/23/2010 12:00 AM ASSAY THYROID STIM HORMONE Reviewed 01/23/2010 12:00 AM ASSAY OF PSA TOTAL Reviewed 08/26/2010 12:00 AM THER/PROPH/DIAG INJ SC/IM Reviewed 08/26/2010 12:00 AM Decadron 1 mg NDC#[id number] (Chad) Reviewed 08/26/2010 12:00 AM Depo-Medrol 80 mg NDC#[id number] Reviewed 08/26/2010 12:00 AM THER/PROPH/DIAG INJ SC/IM Reviewed 08/26/2010 12:00 AM Decadron 8 mg NDC#[id number] (Chad) Reviewed 08/26/2010 12:00 AM Depo-Medrol 80 mg NDC#[id number] Reviewed 08/29/2009 12:00 AM FLU VACCINE 3 YRS & > IM Reviewed 08/29/2009 12:00 AM FLU VACCINE 3 YRS & > IM Reviewed 08/29/2009 12:00 AM COMPREHEN METABOLIC PANEL Reviewed 08/29/2009 12:00 AM LIPID PANEL Reviewed 08/29/2009 12:00 AM ASSAY THYROID STIM HORMONE Reviewed 08/29/2009 12:00 AM ASSAY OF PSA TOTAL Reviewed 11/08/2010 12:00 AM COMPLETE CBC W/AUTO DIFF WBC Reviewed 11/08/2010 12:00 AM COMPREHEN METABOLIC PANEL Reviewed 11/08/2010 12:00 AM CHEST X-RAY 2VW FRONTAL&LATL Reviewed 07/03/2014 12:00 AM THER/PROPH/DIAG INJ SC/IM Reviewed 07/03/2014 12:00 AM Decadron injection Reviewed 07/03/2014 12:00 AM Depo-Medrol 80 mg NDC#[address]-00 Reviewed 09/05/2014 11:17 AM URINALYSIS AUTO W/O SCOPE Reviewed 09/05/2014 12:00 AM URINE CULTURE/COLONY COUNT Reviewed 01/08/2011 12:00 AM Depo-Medrol 80 mg NDC#[id number] Reviewed 01/08/2011 12:00 AM Decadron 8 mg NDC#[id number] (Chad) Reviewed 01/09/2015 12:00 AM COMPLETE CBC W/AUTO DIFF WBC Reviewed 01/09/2015 12:00 AM COMPREHEN METABOLIC PANEL Reviewed 01/09/2015 12:00 AM LIPID PANEL Reviewed 01/09/2015 12:00 AM ASSAY OF PSA FREE Reviewed Results Summary Date and Description Results 08/29/2009 10:45 AM Cholest Cry Stone Ql IR 0.0 %Colonoscopy-Women and Men over 50 Declined PSA SerPl-mCnc 0.0 ng/mL 01/23/2010 8:29 AM TRIGLYCERIDES 58.0 mg/dLCHOLESTEROL 185.0 mg/dLHDL 45.0 mg/ dLTOT CHOL/HDL 4.1 LDL (CALC) 128.0 mg/dLPSA TOTAL 4.480 ng/mLTSH 1.370 uIU/ mLGLUCOSE 104.0 mg/dLSODIUM 140.0 mmol/LPOTASSIUM 4.20 mmol/LCHLORIDE 104.0 mmol /LCO2 29.0 mmol/LBUN 15.0 mg/dLCREATININE 0.80 mg/dLSGOT/AST 31.0 IU/LSGPT/ALT 39.0 IU/LALK PHOS 137.0 IU/LTOTAL PROTEIN 7.20 g/dLALBUMIN 3.60 g/dLTOTAL BILI 0.50 mg/dLCALCIUM 9.10 mg/dLAGE 69 GFR NonAA 96 GFR AA 116 eGFR >60 mL/min/1.73 m2eGFR AA* >60 09/24/2010 8:50 AM PSA TOTAL 8.90 ng/mL 11/08/2010 2:16 PM WBC 8.8 RBC 5.37 HGB 15.30 g/dLHCT 46.30 %MCV 86.0 fLMCH 28.50 pgMCHC 33.0 g/dLRDW SD 48 RDW CV 15.20 %MPV 11.0 fLPLT 97 NRBC# 0.00 NRBC % 0.0 %NEUT 69.90 %%LYMP 14.70 %%MONO 13.40 %%EOS 1.30 %%BASO 0.70 %#NEUT 6.15 # LYMP 1.29 #MONO 1.18 #EOS 0.11 #BASO 0.06 MANUAL DIFF NOT IND GLUCOSE 100.0 mg/ dLSODIUM 137.0 mmol/LPOTASSIUM 3.70 mmol/LCHLORIDE 99.0 mmol/LCO2 25.0 mmol/ LBUN 14.0 mg/dLCREATININE 1.0 mg/dLSGOT/AST 30.0 IU/LSGPT/ALT 22.0 IU/LALK PHOS 78.0 IU/LTOTAL PROTEIN 7.10 g/dLALBUMIN 3.90 g/dLTOTAL BILI 0.80 mg/dLCALCIUM 8.80 mg/dLAGE 70 GFR NonAA 74 GFR AA 90 eGFR >60 mL/min/1.73 m2eGFR AA* >60 07/28/2012 9:00 AM GLUCOSE 120.0 mg/dLSODIUM 138.0 mmol/LPOTASSIUM 3.50 mmol/ LCHLORIDE 100.0 mmol/LCO2 30.0 mmol/LBUN 17.0 mg/dLCREATININE 0.90 mg/dLSGOT/ AST 23.0 IU/LSGPT/ALT 34.0 IU/LALK PHOS 102.0 IU/LTOTAL PROTEIN 6.80 g/ dLALBUMIN 3.60 g/dLTOTAL BILI 1.40 mg/dLCALCIUM 9.20 mg/dLAGE 71 GFR NonAA 84 GFR AA 102 eGFR 60 eGFR AA* 60 WBC 14.2 RBC 4.88 HGB 14.10 g/dLHCT 41.90 %MCV 86.0 fLMCH 28.90 pgMCHC 33.70 g/dLRDW SD 47 RDW CV 15.0 %MPV 10.40 fLPLT 150 NRBC# 0.00 NRBC% 0.0 %NEUT 81.50 %%LYMP 8.0 %%MONO 9.0 %%EOS 1.10 %%BASO 0.40 %# NEUT 11.59 #LYMP 1.13 #MONO 1.28 #EOS 0.15 #BASO 0.05 MANUAL DIFF SEE BELOW SEGS 73 BANDS 9 LYMPHS 9 MONOS 7 EOS 2.0 %TRIGLYCERIDES 77.0 mg/dLCHOLESTEROL 144.0 mg/dLHDL 32.0 mg/dLTOT CHOL/HDL 4.5 LDL (CALC) 97.0 mg/dL 09/05/2014 11:17 AM Bilirub Ur Ql Strip small Glucose Ur-sCnc negative Hgb Ur Ql Strip blood large Ketones Ur Ql Strip trace Nitrite Ur Ql Strip positive pH Ur-LsCnc 6 Prot Ur Ql Strip 30 Sp Gr Ur Qn 1.015 Urobilinogen Ur-mCnc 1.0 WBC Est Ur Ql Strip large 06/21/2015 9:32 AM GLUCOSE 94.0 mg/dLSODIUM 140.0 mmol/LPOTASSIUM 4.10 mmol/ LCHLORIDE 105.0 mmol/LCO2 27.0 mmol/LBUN 13.0 mg/dLCREATININE 0.80 mg/dLSGOT/ AST 24.0 IU/LSGPT/ALT 23.0 IU/LALK PHOS 137.0 IU/LTOTAL PROTEIN 7.0 g/dLALBUMIN 3.70 g/dLTOTAL BILI 1.0 mg/dLCALCIUM 9.0 mg/dLAGE 74 GFR NonAA 95 GFR AA 115 eGFR >60 mL/min/1.73meGFR AA* >60 TRIGLYCERIDES 70.0 mg/dLCHOLESTEROL 147.0 mg /dLHDL 36.0 mg/dLTOT CHOL/HDL 4.1 LDL (CALC) 97.0 mg/dLWBC 8.4 RBC 5.23 HGB 14.90 g/dLHCT 45.70 %MCV 87.0 fLMCH 28.50 pgMCHC 32.60 g/dLRDW SD 47 RDW CV 14.80 %MPV 10.10 fLPLT 139 NRBC# 0.00 NRBC% 0.0 %NEUT 74.30 %%LYMP 15.80 %%MONO 6.20 %%EOS 3.30 %%BASO 0.40 %#NEUT 6.26 #LYMP 1.33 #MONO 0.52 #EOS 0.28 #BASO 0.03 MANUAL DIFF NOT IND PSA TOTAL 7.650 ng/mL 12/18/2015 8:35 AM TRIGLYCERIDES 48.0 mg/dLCHOLESTEROL 135.0 mg/dLHDL 38.0 mg/ dLTOT CHOL/HDL 3.6 LDL (CALC) 87.0 mg/dLGLUCOSE 92.0 mg/dLSODIUM 141.0 mmol/ LPOTASSIUM 3.90 mmol/LCHLORIDE 103.0 mmol/LCO2 28.0 mmol/LBUN 10.0 mg/ dLCREATININE 0.80 mg/dLSGOT/AST 19.0 IU/LSGPT/ALT 16.0 IU/LALK PHOS 106.0 IU/ LTOTAL PROTEIN 7.30 g/dLALBUMIN 3.60 g/dLTOTAL BILI 0.70 mg/dLCALCIUM 9.0 mg/ dLAGE 75 GFR NonAA 95 GFR AA 115 eGFR >60 mL/min/1.73meGFR AA* >60 PSA TOTAL 10.870 ng/mLWBC 9.5 RBC 5.29 HGB 14.60 g/dLHCT 45.80 %MCV 87.0 fLMCH 27.60 pgMCHC 31.90 g/dLRDW SD 44 RDW CV 13.90 %MPV 9.70 fLPLT 183 NRBC# 0.00 NRBC% 0.0 %NEUT 71.10 %%LYMP 12.70 %%MONO 7.40 %%EOS 7.70 %%BASO 0.80 %#NEUT 6.75 # LYMP 1.21 #MONO 0.70 #EOS 0.73 #BASO 0.08 MANUAL DIFF NOT IND 03/10/2017 8:24 AM WBC 11.8 RBC 4.99 HGB 14.0 g/dLHCT 43.10 %MCV 86.0 fLMCH 28.10 pgMCHC 32.50 g/dLRDW SD 45 RDW CV 14.10 %MPV 10.30 fLPLT 153 NRBC# 0.00 NRBC% 0.0 %NEUT 81.80 %%LYMP 10.10 %%MONO 6.60 %%EOS 0.50 %%BASO 0.40 %#NEUT 9.64 #LYMP 1.19 #MONO 0.78 #EOS 0.06 #BASO 0.05 MANUAL DIFF NOT IND TSH 0.660 uIU/mLGLUCOSE 121.0 mg/dLSODIUM 139.0 mmol/LPOTASSIUM 4.20 mmol/LCHLORIDE 106.0 mmol/LCO2 26.0 mmol/LBUN 18.0 mg/dLCREATININE 0.90 mg/dLSGOT/AST 14.0 IU/LSGPT/ ALT 10.0 IU/LALK PHOS 104.0 IU/LTOTAL PROTEIN 7.60 g/dLALBUMIN 3.70 g/dLTOTAL BILI 0.60 mg/dLCALCIUM 9.50 mg/dLAGE 76 GFR NonAA 82 GFR AA 99 eGFR >60 mL/min/ 1.73meGFR AA* >60 TRIGLYCERIDES 56.0 mg/dLCHOLESTEROL 161.0 mg/dLHDL 41.0 mg/ dLTOT CHOL/HDL 3.9 LDL (CALC) 109.0 mg/dL 07/22/2018 9:50 AM Falls in last 6 months? Yes Unsteady or worry about falling ? Yes Fall Risk Assessment At Risk History Of Immunizations Name Date Admin Mfg Name Mfg Code Trade Name Lot# Route Inj Vis Given Vis Pub CVX Influenza 07/15/2012 [employer] FLUZONE [id number] Intramuscular Left Deltoid 07/15/2012 02/09/2012 141 X 07/15/2012 [employer] MSD PNEUMOVAX 23 [id number] Intramuscular Left Deltoid 07/15/2012 09/11/2011 999 History of Past Illness Name Date of Onset Comments Rhinitis, Allergic Flu Aug 29 2009 10:31AM Benign Essential Hypertension Aug 29 2009 9:54AM Asthma Aug 29 2009 9:54AM Rhinitis, Allergic Aug 29 2009 9:54AM Screening For Prostate Cancer Aug 29 2009 9:54AM Asthma Hypertension Chronic Obstructive Pulmonary Disease Essential Hypertension Dec 20 2009 9:51AM Asthma Dec 20 2009 9:51AM Rhinitis, Allergic Dec 20 2009 9:51AM Hypertension Jan 23 2010 8:27AM Prostate screening Jan 23 2010 8:27AM Bronchitis, Acute Aug 26 2010 12:15PM Pneumonia Nov 08 2010 1:46PM Cough Nov 08 2010 1:46PM Chronic Obstructive Pulmonary Disease-Acute Exacerbation Jan 08 2011 10:53AM Essential hypertension 03/09/2017 Chronic obstructive pulmonary disease with acute exacerbation 03/09/2017 Chronic Obstructive Pulmonary Disease Mar 24 2011 9:29AM Chronic Obstructive Pulmonary Disease Aug 29 2011 9:35AM Chronic Obstructive Pulmonary Disease Exacerbation Oct 20 2011 11:02AM Chronic Obstructive Pulmonary Disease Dec 15 2011 3:18PM Hypertension Jul 15 2012 9:39AM Chronic Obstructive Pulmonary Disease Jul 15 2012 9:39AM Chronic Obstructive Pulmonary Disease, Exacerbation Nov 17 2012 10:57AM Chronic Obstructive Pulmonary Disease Nov 29 2012 11:29AM Abdominal Pain Jun 02 2013 11:30AM Chronic Obstructive Pulmonary Disease, Exacerbation Jun 02 2013 11:30AM Chronic Obstructive Pulmonary Disease, Exacerbation Aug 17 2013 10:44AM Pain in joint; shoulder region, Left Dec 29 2013 1:36PM Chronic Obstructive Pulmonary Disease, Exacerbation Dec 29 2013 1:36PM Asthma Jul 03 2014 4:04PM COPD exacerbation Jul 03 2014 4:04PM Urinary Tract Infection Sep 05 2014 11:11AM Bronchitis Sep 05 2014 11:11AM Hypertension Jan 09 2015 1:41PM Hyperlipidemia Jan 09 2015 1:41PM Asthma Jan 09 2015 1:41PM COPD (chronic obstructive pulmonary disease) Jan 09 2015 1:41PM Screening PSA (prostate specific antigen) Jan 09 2015 1:41PM Elevated alkaline phosphatase level Jul 02 2015 2:14PM Chronic bronchitis, unspecified chronic bronchitis type Jul 02 2015 2:14PM Hypertension Jul 02 2015 2:14PM History of prostate surgery Jul 02 2015 2:14PM Elevated PSA Jul 02 2015 2:14PM Screening PSA (prostate specific antigen) Dec 17 2015 5:01PM COPD (chronic obstructive pulmonary disease) Dec 17 2015 5:01PM Hypertension Dec 17 2015 5:01PM Hyperlipidemia Dec 17 2015 5:01PM Chronic obstructive pulmonary disease with acute exacerbation Dec 18 2015 9: 00AM Irregular heart rhythm Aug 12 2016 1:30PM Chronic obstructive pulmonary disease with acute exacerbation Aug 12 2016 1: 30PM Chronic obstructive pulmonary disease with acute exacerbation Nov 18 2016 10: 18AM Melanocytic nevus of neck Nov 18 2016 10:18AM Essential hypertension Mar 09 2017 9:00AM Chronic obstructive pulmonary disease with acute exacerbation Mar 09 2017 9: 00AM Chronic fatigue Mar 09 2017 9:00AM Chronic obstructive pulmonary disease with acute exacerbation Jun 17 2017 9: 34AM Abnormal chest x-ray Jun 17 2017 3:42PM Essential hypertension Jun 22 2017 12:02PM COPD exacerbation Jul 22 2018 9:40AM Essential hypertension Jul 22 2018 9:40AM Asthma Jul 22 2018 9:40AM Seasonal allergies Jul 22 2018 9:40AM Upper Lesion of left lung Jul 28 2018 12:11PM Elevated liver enzymes Jul 28 2018 12:19PM Essential hypertension Sep 02 2018 1:24PM Pancreatic mass Sep 02 2018 1:24PM Chronic obstructive pulmonary disease with acute lower respiratory infection Sep 02 2018 1:24PM Hilar lymphadenopathy Sep 02 2018 1:24PM Mediastinal lymphadenopathy Sep 02 2018 1:24PM Chronic obstructive pulmonary disease with acute lower respiratory infection Sep 28 2018 3:20PM Cough Sep 28 2018 3:20PM Fever Sep 28 2018 3:20PM COPD exacerbation Sep 29 2018 1:19PM Hypoxia Sep 29 2018 1:19PM Shortness Of Breath Oct 06 2018 11:20AM Chronic obstructive pulmonary disease with acute lower respiratory infection Oct 06 2018 11:20AM RSV (respiratory syncytial virus pneumonia) Oct 06 2018 11:20AM Payers Insurance Name Company Name Plan Name Plan Number Policy Number Policy Group Number Start Date Medicare RHC Medicare RHC [id number] Thursday, 2003 Medicare Part B Medicare Of [place] [id number] Thursday, 2003 Medicare Part A Medicare Part A [id number] N/A Medicare Part A Medicare - Lab/Xray [id number] N/A Medicare RHC Medicare RHC [id number] N/A History of Encounters Visit Date Visit Type Provider 10/06/2018 Office visit Aleja Walker [employer] 09/29/2018 [facility] Jerzy aDy 09/29/2018 Office visit Aleja Walker [employer] 09/28/2018 Office visit Aleja Walker [employer] 09/02/2018 Office visit Aleja Walker [employer] 07/22/2018 Office visit 07/22/2018 Office visit 07/22/2018 Office visit Aleja Walker [employer] 06/17/2017 Office visit Aleja Walker [employer] 03/09/2017 Office visit Aleja Walker [employer] 11/18/2016 Office visit Aleja Walker [employer] 08/12/2016 Office visit Aleja Walker [employer] 08/12/2016 Laboratory Aramis French MD 12/18/2015 Office visit Aleja Walker [employer] 07/02/2015 Office visit Aleja Walker [employer] 09/05/2014 Office visit Ebony Almodovar [employer] 07/03/2014 Office visit Ebony Almodovar [employer] 12/29/2013 Office visit Aleja Walker [employer] 08/17/2013 Office visit Aleja Walker [employer] 06/02/2013 Office visit Aleja Walker [employer] 11/29/2012 Hospital Aramis French MD 11/29/2012 Office visit Aleja Walker [employer] 11/17/2012 Office visit Aleja Walker [employer] 07/15/2012 Office visit Aleja Walker [employer] 12/15/2011 Office visit Aleja Walker [employer] 10/20/2011 Office visit Aleja Walker [employer] 08/29/2011 Office visit Aleja Walker [employer] 03/24/2011 Office visit Aleja Walker [employer] 01/08/2011 Office visit Aleja Walker [employer] 11/08/2010 Office visit Aleja Walker [employer] 08/26/2010 Office visit Aleja Walker [employer] 12/20/2009 Office visit Kareen Benitez MD 08/29/2009 Office visit [facility]
--- OUTSIDE RECORDS SUMMARY | 2018-10-29 06:12 | XMS REPORT ---
Author Author Aleja Newell [facility] Address [address] [place], [place] [address] Care Team Providers Care Supercalender Operator Helper Name Role Phone Aleja Newell PCP Aleja Newell PreferredProvider Allergies and [...] 12/18/2015 12:00 AM Decadron, Per 1 Mg [facility]# [address]-58 Reviewed 12/18/2015 12:00 AM Depo-Medrol 40mg Reviewed 08/29/2011 12:00 AM THER/PROPH/DIAG INJ SC/IM Reviewed 08/29/2011 12:00 AM Depo-Medrol 80 mg NDC#[id number]-Yorfiyvy Reviewed 08/29/2011 12:00 AM Depo-Medrol 40 mg NDC#[id number] Reviewed 10/22/2011 12:00 AM URINALYSIS AUTO W/O SCOPE Reviewed 10/20/2011 12:00 AM URINE CULTURE/COLONY COUNT Reviewed 08/12/2016 12:00 AM Decadron, Per 1 Mg NDC# [address]-62 Reviewed 08/12/2016 12:00 AM Depo-Medrol 40mg Injection Reviewed 08/12/2016 12:00 AM ELECTROCARDIOGRAM TRACING Reviewed 12/15/2011 12:00 AM THER/PROPH/DIAG INJ SC/IM Reviewed 12/15/2011 12:00 AM Decadron 1 mg NDC#[id number] (Chad) Reviewed 12/15/2011 12:00 AM Depo-Medrol 80 mg NDC#[id number]-Hoavpezk Reviewed 11/18/2016 12:00 AM Decadron, Per 1 Mg NDC# [address]-17 Reviewed 11/18/2016 12:00 AM Depo-Medrol 40mg Injection Reviewed 03/09/2017 12:00 AM COMPLETE CBC W/AUTO DIFF WBC Reviewed 03/09/2017 12:00 AM COMPREHEN METABOLIC PANEL Reviewed 03/09/2017 12:00 AM LIPID PANEL Reviewed 03/09/2017 12:00 AM Decadron, Per 1 Mg N[facility]# [address]-26 Reviewed 03/09/2017 12:00 AM Depo-Medrol 40mg Injection Reviewed 03/09/2017 12:00 AM CHEST X-RAY 2VW FRONTAL&LATL Reviewed 03/09/2017 12:00 AM ASSAY THYROID STIM HORMONE Reviewed 06/17/2017 12:00 AM Decadron, Per 1 Mg N[facility]# [address]-75 Reviewed 06/17/2017 12:00 AM Depo-Medrol, Per 80 Mg NDC#7661-9039-55 Reviewed 06/17/2017 12:00 AM CHEST X-RAY 2VW FRONTAL&LATL Reviewed 07/15/2012 12:00 AM THER/PROPH/DIAG INJ SC/IM Reviewed 07/15/2012 12:00 AM Decadron 1 mg NDC#[id number] (Chad) Reviewed 07/15/2012 12:00 AM Depo-Medrol 80 mg [facility]#[id number]-Pmutnyqc Reviewed 07/15/2012 12:00 AM COMPLETE CBC W/AUTO [...] 07/22/2018 12:00 AM Decadron, Per 1 Mg [facility]# [address]-68 Reviewed 07/22/2018 12:00 AM Depo-Medrol, Per 80 Mg [facility]#7551-7014-06 Reviewed 07/22/2018 12:00 AM CHEST X-RAY 2VW FRONTAL&LATL Returned 07/28/2018 12:[address] ABD & PELV W/CONTRAST Returned 09/28/2018 12:00 AM COMPLETE CBC W/AUTO DIFF WBC Returned 09/28/2018 12:00 AM COMPREHEN METABOLIC PANEL Returned 09/28/2018 12:00 AM Decadron, Per 1 Mg [facility]# [address]-73 Reviewed 09/28/2018 12:00 AM CHEST X-RAY 2VW [...] Reviewed 08/26/2010 12:00 AM Decadron 1 mg NDC#[id number] (Chad) Reviewed 08/26/2010 12:00 AM Depo-Medrol 80 mg NDC#[id number]-Yalzijfv Reviewed 08/26/2010 12:00 AM THER/PROPH/DIAG INJ SC/IM Reviewed 08/26/2010 12:00 AM Decadron 8 mg NDC#[id number] (Chad) Reviewed 08/26/2010 12:00 AM Depo-Medrol 80 mg NDC#[id number]-Cudwgiui Reviewed 08/29/2009 12:00 AM FLU VACCINE 3 [...] Reviewed 07/03/2014 12:00 AM Depo-Medrol 80 mg NDC#[address]-60 Reviewed 09/05/2014 11:17 AM URINALYSIS AUTO W/O SCOPE Reviewed 09/05/2014 12:00 AM URINE CULTURE/COLONY COUNT Reviewed 01/08/2011 12:00 AM Depo-Medrol 80 mg NDC#[id number]-Hmxckour Reviewed 01/08/2011 12:00 AM Decadron 8 mg NDC#16671128955 (Chad) Reviewed 01/09/2015 12:00 AM COMPLETE CBC [...] Vis Given Vis Pub CVX Influenza 07/15/2012 [employer] SKB FLUZONE [id number] Intramuscular Left Deltoid 07/15/2012 02/09/2012 141 X 07/15/2012 [employer] MSD PNEUMOVAX 23 [id number] Intramuscular Left Deltoid 07/15/2012 09/11/2011 999 History [...] Number Start Date Medicare RHC Medicare RHC [id number] Thursday, 2003 Medicare Part B Medicare Of [place] [id number] Thursday, 2003 Medicare Part A Medicare Part A [id number] N/A Medicare Part A Medicare - Lab/Xray [id number] N/A Medicare RHC Medicare RHC [id number] N/A History of Encounters Visit Date Visit Type Provider 10/06/2018 Office visit Aleja Walker MEDICAL SUPPORT SPECIALIST 09/29/2018 [facility] Jerzy Day 09/29/2018 Office visit Aleja Walker MEDICAL SUPPORT SPECIALIST 09/28/2018 Office visit Aleja Walker MEDICAL SUPPORT SPECIALIST 09/02/2018 Office visit Aleja Walker MEDICAL SUPPORT SPECIALIST 07/22/2018 Office visit 07/22/2018 Office visit 07/22/2018 Office visit Aleja Walker MEDICAL SUPPORT SPECIALIST 06/17/2017 Office visit Aleja Walker MEDICAL SUPPORT SPECIALIST 03/09/2017 Office visit Aleja Walker MEDICAL SUPPORT SPECIALIST 11/18/2016 Office visit Aleja Walker MEDICAL SUPPORT SPECIALIST 08/12/2016 Office visit Aleja Walker MEDICAL SUPPORT SPECIALIST 08/12/2016 Laboratory Aramis rFench MD 12/18/2015 Office visit Aleja Walker MEDICAL SUPPORT SPECIALIST 07/02/2015 Office visit Aleja Walker MEDICAL SUPPORT SPECIALIST 09/05/2014 Office visit Ebony Almodovar MEDICAL SUPPORT SPECIALIST 07/03/2014 Office visit Ebony Almodovar MEDICAL SUPPORT SPECIALIST 12/29/2013 Office visit Aleja Walker MEDICAL SUPPORT SPECIALIST 08/17/2013 Office visit Aleja Walker MEDICAL SUPPORT SPECIALIST 06/02/2013 Office visit Aleja Walker MEDICAL SUPPORT SPECIALIST 11/29/2012 Hospital Aramis French MD 11/29/2012 Office visit Aleja Walker MEDICAL SUPPORT SPECIALIST 11/17/2012 Office visit Aleja Walker MEDICAL SUPPORT SPECIALIST 07/15/2012 Office visit Aleja Walker MEDICAL SUPPORT SPECIALIST 12/15/2011 Office visit Aleja Walker MEDICAL SUPPORT SPECIALIST 10/20/2011 Office visit Aleja Walker MEDICAL SUPPORT SPECIALIST 08/29/2011 Office visit Aleja Walker MEDICAL SUPPORT SPECIALIST 03/24/2011 Office visit Aleja Walker MEDICAL SUPPORT SPECIALIST 01/08/2011 Office visit Aleja Walker MEDICAL SUPPORT SPECIALIST 11/08/2010 Office visit Aleja Walker MEDICAL SUPPORT SPECIALIST 08/26/2010 Office visit Aleja Walker MEDICAL SUPPORT SPECIALIST 12/20/2009 Office visit Kareen Benitez MD 08/29/2009 Office visit [facility]
--- OUTSIDE RECORDS SUMMARY | 2018-10-29 06:13 | XMS REPORT ---
Author Author Aleja Newell [facility] Address [address] [place], [place] [address] Care Team Providers Care Restorative Aide Name Role Phone Aleja Newell PCP Aleja [...] inhalation route every 4-6 hours as needed Levaquin 500 mg oral tablet 09/28/2018 10/05/2018 take 1 tablet (500 mg) by oral route once daily for 7 days Name Start Date Expiration Date SIG Comments [...] 2 times a day for 7 days Discontinued Name Start Date [...] HC BMI BSA BMI Percentile O2 Sat(%) 09/29/2018 1:15:00 PM 138 mmHg 76 mmHg 55 bpm 24 rpm 98.2 F 193 lbs 72 in 26.1752 kg/m 2.1088 m 93 % 09/28/2018 3:18:00 PM 138 mmHg 80 mmHg 99 bpm 20 rpm 98.8 F 195 lbs 72 in 26.45 kg/m2 2.12 m2 88 % 09/02/2018 1:22:00 PM 130 mmHg 74 mmHg 86 bpm 18 rpm 98.6 F 198 lbs 72 in 26.8534 kg/m 2.136 m 96 % 07/22/2018 9:38:00 AM 150 mmHg 100 mmHg 86 bpm 18 rpm 98.6 F 191 lbs 72 in 25.90 kg/m2 2.10 m2 95 % 06/17/2017 9:33:00 AM 137 mmHg 80 mmHg 78 bpm 18 rpm 97.8 F 192 lbs 72 in 26.0396 kg/m 2.1034 m 97 % 03/09/2017 8:58:00 AM 148 mmHg 84 mmHg 93 bpm 18 rpm 97.2 F 197.375 lbs 72 in 26.77 kg/m2 2.13 m2 95 % 11/18/2016 10:16:00 AM 160 mmHg 90 mmHg 102 bpm 18 rpm 98.2 F 202 lbs 72 in 27.3958 kg/m 2.1575 m 93 % 08/12/2016 1:28:00 PM 132 mmHg 72 mmHg 84 bpm 18 rpm 97.5 F 208.25 lbs 72 in 28.24 kg/m2 2.19 m2 97 % 12/18/2015 8:59:00 AM 132 mmHg [...] 12/18/2015 12:00 AM Decadron, Per 1 Mg [facility]# [address]-46 Reviewed 12/18/2015 12:00 AM Depo-Medrol 40mg Reviewed 08/29/2011 12:00 AM THER/PROPH/DIAG INJ SC/IM Reviewed 08/29/2011 12:00 AM Depo-Medrol 80 mg ND#[id number]-Rslfjpdp Reviewed 08/29/2011 12:00 AM Depo-Medrol 40 mg ND#[id number] Reviewed 10/22/2011 12:00 AM URINALYSIS AUTO W/O SCOPE Reviewed 10/20/2011 12:00 AM URINE CULTURE/COLONY COUNT Reviewed 08/12/2016 12:00 AM Decadron, Per 1 Mg ND# [address]-03 Reviewed 08/12/2016 12:00 AM Depo-Medrol 40mg Injection Reviewed 08/12/2016 12:00 AM ELECTROCARDIOGRAM TRACING Reviewed 12/15/2011 12:00 AM THER/PROPH/DIAG INJ SC/IM Reviewed 12/15/2011 12:00 AM Decadron 1 mg NDC#19182200561 (Chad) Reviewed 12/15/2011 12:00 AM Depo-Medrol 80 mg NDC#[id number]-Aigqkhyf Reviewed 11/18/2016 12:00 AM Decadron, Per 1 Mg [facility]# [address]-75 Reviewed 11/18/2016 12:00 AM Depo-Medrol 40mg Injection Reviewed 03/09/2017 12:00 AM COMPLETE CBC W/AUTO DIFF WBC Reviewed 03/09/2017 12:00 AM COMPREHEN METABOLIC PANEL Reviewed 03/09/2017 12:00 AM LIPID PANEL Reviewed 03/09/2017 12:00 AM Decadron, Per 1 Mg N[facility]# [address]-38 Reviewed 03/09/2017 12:00 AM Depo-Medrol 40mg Injection Reviewed 03/09/2017 12:00 AM CHEST X-RAY 2VW FRONTAL&LATL Reviewed 03/09/2017 12:00 AM ASSAY THYROID STIM HORMONE Reviewed 06/17/2017 12:00 AM Decadron, Per 1 Mg [facility]# [address]-03 Reviewed 06/17/2017 12:00 AM Depo-Medrol, Per 80 Mg [facility]#1143-7000-46 Reviewed 06/17/2017 12:00 AM CHEST X-RAY 2VW FRONTAL&LATL Reviewed 07/15/2012 12:00 AM THER/PROPH/DIAG INJ SC/IM Reviewed 07/15/2012 12:00 AM Decadron 1 mg NDC#27856368291 (Chad) Reviewed 07/15/2012 12:00 AM Depo-Medrol 80 mg NDC#[id number]-Txpbvpyj Reviewed 07/15/2012 12:00 AM COMPLETE CBC W/AUTO [...] 07/22/2018 12:00 AM Decadron, Per 1 Mg [facility]# [address]-13 Reviewed 07/22/2018 12:00 AM Depo-Medrol, Per 80 Mg ND#9119-5200-89 Reviewed 07/22/2018 12:00 AM CHEST X-RAY 2VW FRONTAL&LATL Returned 07/28/2018 12:[address] ABD & PELV W/CONTRAST Returned 09/28/2018 12:00 AM COMPLETE CBC W/AUTO DIFF WBC Returned 09/28/2018 12:00 AM COMPREHEN METABOLIC PANEL Returned 09/28/2018 12:00 AM Decadron, Per 1 Mg [facility]# [address]-75 Reviewed 09/28/2018 12:00 AM CHEST X-RAY 2VW FRONTAL&LATL Returned 09/28/2018 12:00 AM ASSAY OF NATRIURETIC PEPTIDE Returned 12/20/2009 12:00 AM IMMUNIZATION ADMIN Reviewed [...] Reviewed 08/26/2010 12:00 AM Decadron 1 mg NDC#[id number] (Chad) Reviewed 08/26/2010 12:00 AM Depo-Medrol 80 mg NDC#[id number]-Uertamfs Reviewed 08/26/2010 12:00 AM THER/PROPH/DIAG INJ SC/IM Reviewed 08/26/2010 12:00 AM Decadron 8 mg NDC#[id number] (Chad) Reviewed 08/26/2010 12:00 AM Depo-Medrol 80 mg [facility]#[id number]-Rrccjbas Reviewed 08/29/2009 12:00 AM FLU VACCINE 3 [...] Reviewed 07/03/2014 12:00 AM Depo-Medrol 80 mg [facility]#[address]-15 Reviewed 09/05/2014 11:17 AM URINALYSIS AUTO W/O SCOPE Reviewed 09/05/2014 12:00 AM URINE CULTURE/COLONY COUNT Reviewed 01/08/2011 12:00 AM Depo-Medrol 80 mg [facility]#[id number]-Siibysti Reviewed 01/08/2011 12:00 AM Decadron 8 mg [facility]#[id number] (Chad) Reviewed 01/09/2015 12:00 AM COMPLETE CBC [...] Vis Given Vis Pub CVX Influenza 07/15/2012 [employer] SKB FLUZONE [id number] Intramuscular Left Deltoid 07/15/2012 02/09/2012 141 X 07/15/2012 [employer] MSD PNEUMOVAX 23 [id number] Intramuscular Left Deltoid 07/15/2012 09/11/2011 999 History [...] 2018 1:19PM Hypoxia Sep 29 2018 1:19PM Payers Insurance Name Company Name Plan Name Plan Number Policy Number Policy Group Number Start Date Medicare RHC Medicare RHC [id number] Thursday, 2003 Medicare Part B Medicare Of [place] [id number] Thursday, 2003 Medicare Part A Medicare Part A [id number] N/A Medicare Part A Medicare - Lab/Xray [id number] N/A Medicare RHC Medicare RHC [id number] N/A History of Encounters Visit Date Visit Type Provider 09/29/2018 Office visit Aleja Newell TEXTILE ENGRAVER 09/28/2018 Office visit Aleja Newell TEXTILE ENGRAVER 09/02/2018 Office visit Aleja Newell TEXTILE ENGRAVER 07/22/2018 Office visit 07/22/2018 Office visit 07/22/2018 Office visit Aleja Newell TEXTILE ENGRAVER 06/17/2017 Office visit Aleja Newell TEXTILE ENGRAVER 03/09/2017 Office visit Aleja Newell TEXTILE ENGRAVER 11/18/2016 Office visit Aleja Newell TEXTILE ENGRAVER 08/12/2016 Office visit Aleja Newell TEXTILE ENGRAVER 08/12/2016 Laboratory Aramis French MD 12/18/2015 Office visit Aleja Walker TEXTILE ENGRAVER 07/02/2015 Office visit Aleja Walker TEXTILE ENGRAVER 09/05/2014 Office visit Ebony Almodovar TEXTILE ENGRAVER 07/03/2014 Office visit Ebony Almodovar TEXTILE ENGRAVER 12/29/2013 Office visit Aleja Newell TEXTILE ENGRAVER 08/17/2013 Office visit Aleja Walker TEXTILE ENGRAVER 06/02/2013 Office visit Aleja Newell TEXTILE ENGRAVER 11/29/2012 Hospital Aramis French MD 11/29/2012 Office visit Aleja Walker TEXTILE ENGRAVER 11/17/2012 Office visit Aleja Walker TEXTILE ENGRAVER 07/15/2012 Office visit Aleja Walker TEXTILE ENGRAVER 12/15/2011 Office visit Aleja Walker TEXTILE ENGRAVER 10/20/2011 Office visit Aleja Walker TEXTILE ENGRAVER 08/29/2011 Office visit Aleja Walker TEXTILE ENGRAVER 03/24/2011 Office visit Aleja Walker TEXTILE ENGRAVER 01/08/2011 Office visit Aleja Walker TEXTILE ENGRAVER 11/08/2010 Office visit Aleja Walker TEXTILE ENGRAVER 08/26/2010 Office visit Aleja Newell TEXTILE ENGRAVER 12/20/2009 Office visit Kareen Benitez MD 08/29/2009 Office visit [facility]
--- OUTSIDE RECORDS SUMMARY | 2018-10-29 06:14 | XMS REPORT ---
Author Author Aleja Newell [facility] Address [address] [place], [place] [address] Care Team Providers Care Shell Sorter Name Role Phone Aleja Newell PCP Aleja [...] AM CT CHEST W/CONTRAST 07/28/2018 12:00 AM CMP (comprehensive metabolic panel) 09/28/2018 12:00 AM CX CHEST 2 VIEWS 09/28/2018 12:00 AM BNP 09/28/2018 12:00 AM MRI of shoulder, with and [...] days Pulmicort Flexhaler 180 mcg/actuation [facility] 12/15/2011 07/15/2012 inhale 2 puffs [...] days Tudorza Pressair 400 mcg/actuation [facility] breath activated 06/02/2013 inhale 1 puff (400 [...] HC BMI BSA BMI Percentile O2 Sat(%) 09/28/2018 3:18:00 PM 138 mmHg 80 mmHg [...] 12/18/2015 12:00 AM Decadron, Per 1 Mg [facility]# [address]-56 Reviewed 12/18/2015 12:00 AM Depo-Medrol 40mg Reviewed 08/29/2011 12:00 AM THER/PROPH/DIAG INJ SC/IM Reviewed 08/29/2011 12:00 AM Depo-Medrol 80 mg [facility]#[id number]-Fimvrsyg Reviewed 08/29/2011 12:00 AM Depo-Medrol 40 mg [facility]#[id number] Reviewed 10/22/2011 12:00 AM URINALYSIS AUTO W/O SCOPE Reviewed 10/20/2011 12:00 AM URINE CULTURE/COLONY COUNT Reviewed 08/12/2016 12:00 AM Decadron, Per 1 Mg [facility]# [address]-02 Reviewed 08/12/2016 12:00 AM Depo-Medrol 40mg Injection Reviewed 08/12/2016 12:00 AM ELECTROCARDIOGRAM TRACING Reviewed 12/15/2011 12:00 AM THER/PROPH/DIAG INJ SC/IM Reviewed 12/15/2011 12:00 AM Decadron 1 mg [facility]#[id number] (Chad) Reviewed 12/15/2011 12:00 AM Depo-Medrol 80 mg NDC#60474126557-Ojiguzsv Reviewed 11/18/2016 12:00 AM Decadron, Per 1 Mg [facility]# [address]-23 Reviewed 11/18/2016 12:00 AM Depo-Medrol 40mg Injection Reviewed 03/09/2017 12:00 AM COMPLETE CBC W/AUTO DIFF WBC Reviewed 03/09/2017 12:00 AM COMPREHEN METABOLIC PANEL Reviewed 03/09/2017 12:00 AM LIPID PANEL Reviewed 03/09/2017 12:00 AM Decadron, Per 1 Mg [facility]# [address]-85 Reviewed 03/09/2017 12:00 AM Depo-Medrol 40mg Injection Reviewed 03/09/2017 12:00 AM CHEST X-RAY 2VW FRONTAL&LATL Reviewed 03/09/2017 12:00 AM ASSAY THYROID STIM HORMONE Reviewed 06/17/2017 12:00 AM Decadron, Per 1 Mg [facility]# [address]-73 Reviewed 06/17/2017 12:00 AM Depo-Medrol, Per 80 Mg ND#1965-30[address]-46 Reviewed 06/17/2017 12:00 AM CHEST X-RAY 2VW FRONTAL&LATL Reviewed 07/15/2012 12:00 AM THER/PROPH/DIAG INJ SC/IM Reviewed 07/15/2012 12:00 AM Decadron 1 mg N[facility]#50593685894 (Chad) Reviewed 07/15/2012 12:00 AM Depo-Medrol 80 mg N[facility]#[id number]-Uabjykef Reviewed 07/15/2012 12:00 AM COMPLETE CBC W/AUTO [...] 07/22/2018 12:00 AM Decadron, Per 1 Mg ND# [address]-45 Reviewed 07/22/2018 12:00 AM Depo-Medrol, Per 80 Mg N[facility]#5501-9371-87 Reviewed 07/22/2018 12:00 AM CHEST X-RAY 2VW FRONTAL&LATL Returned 07/28/2018 12:[address] ABD & PELV W/CONTRAST Returned 09/28/2018 12:00 AM COMPLETE CBC W/AUTO DIFF WBC Returned 09/28/2018 12:00 AM Decadron, Per 1 Mg [facility]# [address]-44 Reviewed 12/20/2009 12:00 AM IMMUNIZATION ADMIN Reviewed 12/20/2009 [...] Reviewed 08/26/2010 12:00 AM Decadron 1 mg N[facility]#27252491401 (Chad) Reviewed 08/26/2010 12:00 AM Depo-Medrol 80 mg NDC#[id number]-Qaxbompq Reviewed 08/26/2010 12:00 AM THER/PROPH/DIAG INJ SC/IM Reviewed 08/26/2010 12:00 AM Decadron 8 mg N[facility]#66080681516 (Chad) Reviewed 08/26/2010 12:00 AM Depo-Medrol 80 mg NDC#[id number]-Mjaguduh Reviewed 08/29/2009 12:00 AM FLU VACCINE 3 [...] Reviewed 07/03/2014 12:00 AM Depo-Medrol 80 mg [facility]#[address]-28 Reviewed 09/05/2014 11:17 AM URINALYSIS AUTO W/O SCOPE Reviewed 09/05/2014 12:00 AM URINE CULTURE/COLONY COUNT Reviewed 01/08/2011 12:00 AM Depo-Medrol 80 mg [facility]#[id number]-[place] Reviewed 01/08/2011 12:00 AM Decadron 8 mg [facility]#[id number] (Chad) Reviewed 01/09/2015 12:00 AM COMPLETE CBC [...] Vis Given Vis Pub CVX Influenza 07/15/2012 [employer] SKB FLUZONE [id number] Intramuscular Left Deltoid 07/15/2012 02/09/2012 141 X 07/15/2012 [employer] MSD PNEUMOVAX 23 [id number] Intramuscular Left Deltoid 07/15/2012 09/11/2011 999 History [...] 2018 3:20PM Fever Sep 28 2018 3:20PM Payers Insurance Name Company Name Plan Name Plan Number Policy Number Policy Group Number Start Date Medicare RHC Medicare RHC [id number] Thursday, 2003 Medicare Part B Medicare Of [place] [id number] Thursday, 2003 Medicare Part A Medicare Part A [id number] N/A Medicare Part A Medicare - Lab/Xray [id number] N/A Medicare RHC Medicare RHC [id number] N/A History of Encounters Visit Date Visit Type Provider 09/28/2018 Office visit Aleja Newell SENIOR SCRUM MASTER 09/02/2018 Office visit Aleaj Newell SENIOR SCRUM MASTER 07/22/2018 Office visit 07/22/2018 Office visit 07/22/2018 Office visit Aleja Newell SENIOR SCRUM MASTER 06/17/2017 Office visit Aleja Newell SENIOR SCRUM MASTER 03/09/2017 Office visit Aleja Newell SENIOR SCRUM MASTER 11/18/2016 Office visit Aleja Newell SENIOR SCRUM MASTER 08/12/2016 Office visit Aleja Newell SENIOR SCRUM MASTER 08/12/2016 Laboratory Aramis French MD 12/18/2015 Office visit Aleja Newell SENIOR SCRUM MASTER 07/02/2015 Office visit Aleja Newell SENIOR SCRUM MASTER 09/05/2014 Office visit Ebony Almodovar SENIOR SCRUM MASTER 07/03/2014 Office visit Ebony Almodovar SENIOR SCRUM MASTER 12/29/2013 Office visit Aleja Newell SENIOR SCRUM MASTER 08/17/2013 Office visit Aleja Reece SENIOR SCRUM MASTER 06/02/2013 Office visit Aleja Reece SENIOR SCRUM MASTER 11/29/2012 [facility] Aramis French MD 11/29/2012 Office visit Aleja Newell SENIOR SCRUM MASTER 11/17/2012 Office visit Aleja Newell SENIOR SCRUM MASTER 07/15/2012 Office visit Aleja Reece SENIOR SCRUM MASTER 12/15/2011 Office visit Aleja Newell SENIOR SCRUM MASTER 10/20/2011 Office visit Aleja Newell SENIOR SCRUM MASTER 08/29/2011 Office visit Aleja Newell SENIOR SCRUM MASTER 03/24/2011 Office visit Aleja Newell SENIOR SCRUM MASTER 01/08/2011 Office visit Aleja Newell SENIOR SCRUM MASTER 11/08/2010 Office visit Aleja Reece SENIOR SCRUM MASTER 08/26/2010 Office visit Aleja Newell SENIOR SCRUM MASTER 12/20/2009 Office visit Kareen Benitez MD 08/29/2009 Office visit [facility]
[2018-10-29 06:15] VITALS: BP 129/98
--- OUTSIDE RECORDS SUMMARY | 2018-10-29 06:15 | XMS REPORT ---
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 Name Role Phone Aleja Newell PCP [...] AM CT CHEST W/CONTRAST 07/28/2018 12:[address] ABD AND PELVIS W/CONTRAST 07/28/2018 12:00 AM MRI of shoulder, [...] MORNING AND EVENING APPROXIMATELY 12 HOURS APART lisinopril 10 mg oral tablet 07/26/2018 TAKE 1 TABLET (10 MG) BY ORAL ROUTE ONCE DAILY FOR 30 DAYS ProAir HFA 90 mcg/actuation inhalation HFA aerosol inhaler 07/26/2018 INHALE 1 PUFF (90 MCG) BY INHALATION ROUTE EVERY 4-6 HOURS NEEDED doxycycline monohydrate 100 mg oral tablet 07/27/2018 08/03/2018 take 1 tablet by oral route 2 times a day for 7 days ipratropium-albuterol 0.5 mg-3 mg(2.5 mg base)/3 mL inhalation solution for nebulization 07/27/2018 INHALE 3 MILLILITERS BY NEBULIZATION ROUTE 4 TIMES PER DAY AND NEEDED, UP TO 6 DOSES PER DAY Name Start Date Expiration Date SIG Comments [...] Take 1 tab daily for 5 days Problem List Description Status Onset Asthma Active Chronic Obstructive Pulmonary Disease Active Hypertension Active Essential hypertension Active 03/09/2017 Chronic obstructive pulmonary disease with acute exacerbation Active 2016 Vital Signs Date Time BP-Sys(mm[Hg] BP-Muriel(mm[Hg]) HR(bpm) RR(rpm) Temp WT HT HC BMI BSA BMI Percentile O2 Sat(%) 07/22/2018 9:38:00 AM 150 mmHg 100 mmHg [...] rpm 97.8 F 200.5 lbs 72 in 27.19 kg/m2 2.15 m2 100 % 09/05/2014 11:08:00 AM 120 mmHg 60 mmHg 88 bpm 20 rpm 98.8 F 204.6 lbs 72 in 27.7485 kg/m 2.1713 m 92 % 07/03/2014 4:03:00 PM 124 mmHg 78 mmHg 90 bpm 22 rpm 98.2 F 207.8 lbs 72 in 28.18 kg/m2 2.19 m2 95 % 12/29/2013 1:33:00 PM 126 mmHg 76 mmHg 95 bpm 18 rpm 101.4 F 207.125 lbs 72 in 28.09 kg/m2 2.1847 m 91 % 08/17/2013 10:42:00 AM 132 mmHg 68 mmHg 93 bpm 18 rpm 97.6 F 209.5 lbs 72 in 28.41 kg/m2 2.20 m2 92 % 06/02/2013 11:27:00 AM 136 mmHg 74 mmHg 111 bpm 18 rpm 98.5 F 204.5 lbs 72 in 27.7349 kg/m 2.1708 m 93 % 11/29/2012 11:14:00 AM 142 mmHg 70 mmHg 88 bpm 20 rpm 98.3 F 211.125 lbs 97 % 11/17/2012 10:55:00 AM 132 mmHg 68 mmHg 86 bpm 20 rpm 97.6 F 207.5 lbs 72 in 28.14 kg/m2 2.19 m2 93 % 07/15/2012 9:37:00 AM 128 mmHg 66 mmHg 72 bpm 18 rpm 97.8 F 204.375 lbs 72 in 27.7179 kg/m 2.1701 m 99 % 12/15/2011 3:15:00 PM 130 mmHg 64 mmHg 75 bpm 20 rpm 99.1 F 205.5 lbs 72 in 27.87 kg/m2 2.18 m2 94 % 10/20/2011 11:00:00 AM 140 mmHg [...] 12/18/2015 12:00 AM Decadron, Per 1 Mg NDC# [address]-16 Reviewed 12/18/2015 12:00 AM Depo-Medrol 40mg Reviewed 08/29/2011 12:00 AM THER/PROPH/DIAG INJ SC/IM Reviewed 08/29/2011 12:00 AM Depo-Medrol 80 mg NDC#[id number]-Oclcnopt Reviewed 08/29/2011 12:00 AM Depo-Medrol 40 mg NDC#[id number] Reviewed 10/22/2011 12:00 AM URINALYSIS AUTO W/O SCOPE Reviewed 10/20/2011 12:00 AM URINE CULTURE/COLONY COUNT Reviewed 08/12/2016 12:00 AM Decadron, Per 1 Mg NDC# [address]-24 Reviewed 08/12/2016 12:00 AM Depo-Medrol 40mg Injection Reviewed 08/12/2016 12:00 AM ELECTROCARDIOGRAM TRACING Reviewed 12/15/2011 12:00 AM THER/PROPH/DIAG INJ SC/IM Reviewed 12/15/2011 12:00 AM Decadron 1 mg NDC#[id number] (Chad) Reviewed 12/15/2011 12:00 AM Depo-Medrol 80 mg NDC#[id number]-Ljcmqoux Reviewed 11/18/2016 12:00 AM Decadron, Per 1 Mg NDC# [address]-08 Reviewed 11/18/2016 12:00 AM Depo-Medrol 40mg Injection Reviewed 03/09/2017 12:00 AM COMPLETE CBC W/AUTO DIFF WBC Reviewed 03/09/2017 12:00 AM COMPREHEN METABOLIC PANEL Reviewed 03/09/2017 12:00 AM LIPID PANEL Reviewed 03/09/2017 12:00 AM Decadron, Per 1 Mg [facility]# [address]-14 Reviewed 03/09/2017 12:00 AM Depo-Medrol 40mg Injection Reviewed 03/09/2017 12:00 AM CHEST X-RAY 2VW FRONTAL&LATL Reviewed 03/09/2017 12:00 AM ASSAY THYROID STIM HORMONE Reviewed 06/17/2017 12:00 AM Decadron, Per 1 Mg [facility]# [address]-55 Reviewed 06/17/2017 12:00 AM Depo-Medrol, Per 80 Mg [facility]#7606-5859-47 Reviewed 06/17/2017 12:00 AM CHEST X-RAY 2VW FRONTAL&LATL Reviewed 07/15/2012 12:00 AM THER/PROPH/DIAG INJ SC/IM Reviewed 07/15/2012 12:00 AM Decadron 1 mg [facility]#[id number] (Chad) Reviewed 07/15/2012 12:00 AM Depo-Medrol 80 mg [facility]#[id number]-Ddtqxmgg Reviewed 07/15/2012 12:00 AM COMPLETE CBC W/AUTO [...] 07/22/2018 12:00 AM Decadron, Per 1 Mg [facility]# [address]-18 Reviewed 07/22/2018 12:00 AM Depo-Medrol, Per 80 Mg [facility]#7514-2781-87 Reviewed 07/22/2018 12:00 AM CHEST X-RAY 2VW [...] Reviewed 08/26/2010 12:00 AM Decadron 1 mg NDC#[id number] (Chad) Reviewed 08/26/2010 12:00 AM Depo-Medrol 80 mg NDC#[id number]-Jbgzyunq Reviewed 08/26/2010 12:00 AM THER/PROPH/DIAG INJ SC/IM Reviewed 08/26/2010 12:00 AM Decadron 8 mg NDC#[id number] (Chad) Reviewed 08/26/2010 12:00 AM Depo-Medrol 80 mg NDC#[id number]-Xmjamckc Reviewed 08/29/2009 12:00 AM FLU VACCINE 3 [...] Reviewed 07/03/2014 12:00 AM Depo-Medrol 80 mg NDC#[address]-86 Reviewed 09/05/2014 11:17 AM URINALYSIS AUTO W/O SCOPE Reviewed 09/05/2014 12:00 AM URINE CULTURE/COLONY COUNT Reviewed 01/08/2011 12:00 AM Depo-Medrol 80 mg NDC#[id number]-Gqhhmoia Reviewed 01/08/2011 12:00 AM Decadron 8 mg [facility]#[id number] (Chad) Reviewed 01/09/2015 12:00 AM COMPLETE CBC [...] Vis Given Vis Pub CVX Influenza 07/15/2012 [employer] SKB FLUZONE [id number] Intramuscular Left Deltoid 07/15/2012 02/09/2012 141 X 07/15/2012 [employer] MSD PNEUMOVAX 23 [id number] Intramuscular Left Deltoid 07/15/2012 09/11/2011 999 History [...] Elevated liver enzymes Jul 28 2018 12:19PM Payers Insurance Name Company Name Plan Name Plan Number Policy Number Policy Group Number Start Date Medicare [facility] Medicare [facility] [id number] N/A Medicare Part B Medicare Of [place] [id number] Thursday, 2003 Medicare Part A Medicare Part A [id number] N/A Medicare Part A Medicare - Lab/Xray [id number] N/A History of Encounters Visit Date Visit Type Provider 07/22/2018 Office visit 07/22/2018 Office visit 07/22/2018 Office visit Aleja Newell ESCAPEMENT MATCHER 06/17/2017 Office visit Aleja Walker ESCAPEMENT MATCHER 03/09/2017 Office visit Aleja Walker ESCAPEMENT MATCHER 11/18/2016 Office visit Aleja Walker ESCAPEMENT MATCHER 08/12/2016 Office visit Aleja Walker ESCAPEMENT MATCHER 08/12/2016 Laboratory Aramis French MD 12/18/2015 Office visit Aleja Walker ESCAPEMENT MATCHER 07/02/2015 Office visit Aleja Walker ESCAPEMENT MATCHER 09/05/2014 Office visit Ebony Almodovar ESCAPEMENT MATCHER 07/03/2014 Office visit Ebony Almodovar ESCAPEMENT MATCHER 12/29/2013 Office visit Aleja Walker ESCAPEMENT MATCHER 08/17/2013 Office visit Aleja Walker ESCAPEMENT MATCHER 06/02/2013 Office visit Aleja Reece ESCAPEMENT MATCHER 11/29/2012 Hospital Aramis French MD 11/29/2012 Office visit Aleja Walker ESCAPEMENT MATCHER 11/17/2012 Office visit Aleja Walker ESCAPEMENT MATCHER 07/15/2012 Office visit Aleja Walker ESCAPEMENT MATCHER 12/15/2011 Office visit Aleja Walker ESCAPEMENT MATCHER 10/20/2011 Office visit Aleja Walker ESCAPEMENT MATCHER 08/29/2011 Office visit Aleja Walker ESCAPEMENT MATCHER 03/24/2011 Office visit Aleja Walker ESCAPEMENT MATCHER 01/08/2011 Office visit Aleja Walker ESCAPEMENT MATCHER 11/08/2010 Office visit Aleja Walker ESCAPEMENT MATCHER 08/26/2010 Office visit Aleja Newell ESCAPEMENT MATCHER 12/20/2009 Office visit Kareen Benitez MD 08/29/2009 Office visit [facility]
--- OUTSIDE RECORDS SUMMARY | 2018-10-29 06:15 | XMS REPORT ---
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 Name Role Phone Aleja Newell PCP Aleja [...] 12:00 AM Decadron, Per 1 Mg NDC# [address]-71 Reviewed 12/18/2015 12:00 AM Depo-Medrol 40mg Reviewed 08/29/2011 12:00 AM THER/PROPH/DIAG INJ SC/IM Reviewed 08/29/2011 12:00 AM Depo-Medrol 80 mg NDC#[id number]-Svlndrej Reviewed 08/29/2011 12:00 AM Depo-Medrol 40 mg NDC#[id number] Reviewed 10/22/2011 12:00 AM URINALYSIS AUTO W/O SCOPE Reviewed 10/20/2011 12:00 AM URINE CULTURE/COLONY COUNT Reviewed 08/12/2016 12:00 AM Decadron, Per 1 Mg NDC# [address]-73 Reviewed 08/12/2016 12:00 AM Depo-Medrol 40mg Injection Reviewed 08/12/2016 12:00 AM ELECTROCARDIOGRAM TRACING Reviewed 12/15/2011 12:00 AM THER/PROPH/DIAG INJ SC/IM Reviewed 12/15/2011 12:00 AM Decadron 1 mg NDC#[id number] (Chad) Reviewed 12/15/2011 12:00 AM Depo-Medrol 80 mg NDC#[id number]-Mbcoyyop Reviewed 11/18/2016 12:00 AM Decadron, Per 1 Mg NDC# [address]-51 Reviewed 11/18/2016 12:00 AM Depo-Medrol 40mg Injection Reviewed 03/09/2017 12:00 AM COMPLETE CBC W/AUTO DIFF WBC Reviewed 03/09/2017 12:00 AM COMPREHEN METABOLIC PANEL Reviewed 03/09/2017 12:00 AM LIPID PANEL Reviewed 03/09/2017 12:00 AM Decadron, Per 1 Mg [facility]# [address]-75 Reviewed 03/09/2017 12:00 AM Depo-Medrol 40mg Injection Reviewed 03/09/2017 12:00 AM CHEST X-RAY 2VW FRONTAL&LATL Reviewed 03/09/2017 12:00 AM ASSAY THYROID STIM HORMONE Reviewed 06/17/2017 12:00 AM Decadron, Per 1 Mg [facility]AM[facility]# [address]-61 Reviewed 06/17/2017 12:00 AM Depo-Medrol, Per 80 Mg [facility]#2614-6496-89 Reviewed 06/17/2017 12:00 AM CHEST X-RAY 2VW FRONTAL&LATL Reviewed 07/15/2012 12:00 AM THER/PROPH/DIAG INJ SC/IM Reviewed 07/15/2012 12:00 AM Decadron 1 mg [facility]#[id number] (Chad) Reviewed 07/15/2012 12:00 AM Depo-Medrol 80 mg [facility]#[id number]-Yqvfxisq Reviewed 07/15/2012 12:00 AM COMPLETE CBC W/AUTO [...] 07/22/2018 12:00 AM Decadron, Per 1 Mg [facility]# [address]-36 Reviewed 07/22/2018 12:00 AM Depo-Medrol, Per 80 Mg [facility]#3443-0640-51 Reviewed 07/22/2018 12:00 AM CHEST X-RAY 2VW [...] Reviewed 08/26/2010 12:00 AM Decadron 1 mg NDC#[id number] (Chad) Reviewed 08/26/2010 12:00 AM Depo-Medrol 80 mg NDC#[id number]-Ariopsnq Reviewed 08/26/2010 12:00 AM THER/PROPH/DIAG INJ SC/IM Reviewed 08/26/2010 12:00 AM Decadron 8 mg NDC#87633363509 (Chad) Reviewed 08/26/2010 12:00 AM Depo-Medrol 80 mg NDC#[id number]-Xtxtyjhq Reviewed 08/29/2009 12:00 AM FLU VACCINE 3 [...] Reviewed 07/03/2014 12:00 AM Depo-Medrol 80 mg NDC#[address]-06 Reviewed 09/05/2014 11:17 AM URINALYSIS AUTO W/O SCOPE Reviewed 09/05/2014 12:00 AM URINE CULTURE/COLONY COUNT Reviewed 01/08/2011 12:00 AM Depo-Medrol 80 mg NDC#[id number]-Xzwlgegp Reviewed 01/08/2011 12:00 AM Decadron 8 mg [facility]#[id number] (Chad) Reviewed 01/09/2015 12:00 AM COMPLETE CBC [...] Vis Given Vis Pub CVX Influenza 07/15/2012 [employer] SKB FLUZONE [id number] Intramuscular Left Deltoid 07/15/2012 02/09/2012 141 X 07/15/2012 [employer] MSD PNEUMOVAX 23 [id number] Intramuscular Left Deltoid 07/15/2012 09/11/2011 999 History [...] Number Policy Group Number Start Date Medicare [facility] Medicare [facility] [id number] N/A Medicare Part B Medicare Of [place] [id number] Thursday, 2003 Medicare Part A Medicare Part A [id number] N/A Medicare Part A Medicare - Lab/Xray [id number] N/A History of Encounters Visit Date Visit Type Provider 07/22/2018 Office visit 07/22/2018 Office visit 07/22/2018 Office visit Aleja Newell REFRIGERATION ENGINE OPERATOR 06/17/2017 Office visit Aleja Walker REFRIGERATION ENGINE OPERATOR 03/09/2017 Office visit Aleja Walker REFRIGERATION ENGINE OPERATOR 11/18/2016 Office visit Aleja Walker REFRIGERATION ENGINE OPERATOR 08/12/2016 Office visit Aleja Walker REFRIGERATION ENGINE OPERATOR 08/12/2016 Laboratory Aramis French MD 12/18/2015 Office visit Aleja Walker REFRIGERATION ENGINE OPERATOR 07/02/2015 Office visit Aleja Walker REFRIGERATION ENGINE OPERATOR 09/05/2014 Office visit Ebony Almodovar REFRIGERATION ENGINE OPERATOR 07/03/2014 Office visit Ebony Almodovar REFRIGERATION ENGINE OPERATOR 12/29/2013 Office visit Aleja Walker REFRIGERATION ENGINE OPERATOR 08/17/2013 Office visit Aleja Walker REFRIGERATION ENGINE OPERATOR 06/02/2013 Office visit Aleja Reece REFRIGERATION ENGINE OPERATOR 11/29/2012 Hospital Aramis French MD 11/29/2012 Office visit Aleja Walker REFRIGERATION ENGINE OPERATOR 11/17/2012 Office visit Aleja Walker REFRIGERATION ENGINE OPERATOR 07/15/2012 Office visit Aleja Walker REFRIGERATION ENGINE OPERATOR 12/15/2011 Office visit Aleja Walker REFRIGERATION ENGINE OPERATOR 10/20/2011 Office visit Aleja Walker REFRIGERATION ENGINE OPERATOR 08/29/2011 Office visit Aleja Walker REFRIGERATION ENGINE OPERATOR 03/24/2011 Office visit Aleja Walker REFRIGERATION ENGINE OPERATOR 01/08/2011 Office visit Aleja Walker REFRIGERATION ENGINE OPERATOR 11/08/2010 Office visit Aleja Walker REFRIGERATION ENGINE OPERATOR 08/26/2010 Office visit Aleja Newell REFRIGERATION ENGINE OPERATOR 12/20/2009 Office visit Kareen Benitez MD 08/29/2009 Office visit [facility]
--- OUTSIDE RECORDS SUMMARY | 2018-10-29 06:16 | XMS REPORT ---
Author Author Aleja Newell [facility] Address [address] [place], [place] [address] Care Team Providers Care Home Health Care Physician Name Role Phone Aleja Newell PCP Aleja [...] 12:00 AM Decadron, Per 1 Mg [facility]# [address]-31 Reviewed 12/18/2015 12:00 AM Depo-Medrol 40mg Reviewed 08/29/2011 12:00 AM THER/PROPH/DIAG INJ SC/IM Reviewed 08/29/2011 12:00 AM Depo-Medrol 80 mg NDC#[id number]-Macdllmz Reviewed 08/29/2011 12:00 AM Depo-Medrol 40 mg NDC#[id number] Reviewed 10/22/2011 12:00 AM URINALYSIS AUTO W/O SCOPE Reviewed 10/20/2011 12:00 AM URINE CULTURE/COLONY COUNT Reviewed 08/12/2016 12:00 AM Decadron, Per 1 Mg [facility]# [address]-95 Reviewed 08/12/2016 12:00 AM Depo-Medrol 40mg Injection Reviewed 08/12/2016 12:00 AM ELECTROCARDIOGRAM TRACING Reviewed 12/15/2011 12:00 AM THER/PROPH/DIAG INJ SC/IM Reviewed 12/15/2011 12:00 AM Decadron 1 mg NDC#[id number] (Chad) Reviewed 12/15/2011 12:00 AM Depo-Medrol 80 mg NDC#[id number]-Ogjvlhip Reviewed 11/18/2016 12:00 AM Decadron, Per 1 Mg NDC# [address]-24 Reviewed 11/18/2016 12:00 AM Depo-Medrol 40mg Injection Reviewed 03/09/2017 12:00 AM COMPLETE CBC W/AUTO DIFF WBC Reviewed 03/09/2017 12:00 AM COMPREHEN METABOLIC PANEL Reviewed 03/09/2017 12:00 AM LIPID PANEL Reviewed 03/09/2017 12:00 AM Decadron, Per 1 Mg [facility]# [address]-85 Reviewed 03/09/2017 12:00 AM Depo-Medrol 40mg Injection Reviewed 03/09/2017 12:00 AM CHEST X-RAY 2VW FRONTAL&LATL Reviewed 03/09/2017 12:00 AM ASSAY THYROID STIM HORMONE Reviewed 06/17/2017 12:00 AM Decadron, Per 1 Mg [facility]# [address]-23 Reviewed 06/17/2017 12:00 AM Depo-Medrol, Per 80 Mg [facility]#2570-7105-98 Reviewed 06/17/2017 12:00 AM CHEST X-RAY 2VW FRONTAL&LATL Reviewed 07/15/2012 12:00 AM THER/PROPH/DIAG INJ SC/IM Reviewed 07/15/2012 12:00 AM Decadron 1 mg [facility]#[id number] (Chad) Reviewed 07/15/2012 12:00 AM Depo-Medrol 80 mg [facility]#[id number]-Phdxupgx Reviewed 07/15/2012 12:00 AM COMPLETE CBC W/AUTO [...] 12:00 AM Decadron, Per 1 Mg [facility]# [address]-60 Reviewed 07/22/2018 12:00 AM Depo-Medrol, Per 80 Mg [facility]#5942-5895-09 Reviewed 07/22/2018 12:00 AM CHEST X-RAY 2VW [...] Reviewed 08/26/2010 12:00 AM Decadron 1 mg NDC#58028468157 (Chad) Reviewed 08/26/2010 12:00 AM Depo-Medrol 80 mg NDC#54903012290-Tzehidgr Reviewed 08/26/2010 12:00 AM THER/PROPH/DIAG INJ SC/IM Reviewed 08/26/2010 12:00 AM Decadron 8 mg NDC#63163711220 (Chad) Reviewed 08/26/2010 12:00 AM Depo-Medrol 80 mg NDC#[id number]-Dfdahjbw Reviewed 08/29/2009 12:00 AM FLU VACCINE 3 [...] Reviewed 07/03/2014 12:00 AM Depo-Medrol 80 mg NDC#[address]-14 Reviewed 09/05/2014 11:17 AM URINALYSIS AUTO W/O SCOPE Reviewed 09/05/2014 12:00 AM URINE CULTURE/COLONY COUNT Reviewed 01/08/2011 12:00 AM Depo-Medrol 80 mg NDC#[id number]-Ofbzrjtw Reviewed 01/08/2011 12:00 AM Decadron 8 mg NDC#49795476899 (Chad) Reviewed 01/09/2015 12:00 AM COMPLETE CBC [...] Vis Given Vis Pub CVX Influenza 07/15/2012 [employer] SKB FLUZONE [id number] Intramuscular Left Deltoid 07/15/2012 02/09/2012 141 X 07/15/2012 [employer] MSD PNEUMOVAX 23 [id number] Intramuscular Left Deltoid 07/15/2012 09/11/2011 999 History [...] of left lung Jul 28 2018 12:11PM Payers Insurance Name Company Name Plan Name Plan Number Policy Number Policy Group Number Start Date Medicare [facility] Medicare [facility] [id number] N/A Medicare Part B Medicare Of [place] [id number] Thursday, 2003 Medicare Part A Medicare Part A [id number] N/A Medicare Part A Medicare - Lab/Xray [id number] N/A History of Encounters Visit Date Visit Type Provider 07/22/2018 Office visit 07/22/2018 Office visit 07/22/2018 Office visit Aleja Newell TITLE ONE KINDERGARTEN TEACHER 06/17/2017 Office visit Aleja Newell TITLE ONE KINDERGARTEN TEACHER 03/09/2017 Office visit Aleja Walker TITLE ONE KINDERGARTEN TEACHER 11/18/2016 Office visit Aleja Walker TITLE ONE KINDERGARTEN TEACHER 08/12/2016 Office visit Aleja Walker TITLE ONE KINDERGARTEN TEACHER 08/12/2016 Laboratory Aramis French MD 12/18/2015 Office visit Aleja Walker TITLE ONE KINDERGARTEN TEACHER 07/02/2015 Office visit Aleja Walker TITLE ONE KINDERGARTEN TEACHER 09/05/2014 Office visit Ebony Almodovar TITLE ONE KINDERGARTEN TEACHER 07/03/2014 Office visit Ebony Almodovar TITLE ONE KINDERGARTEN TEACHER 12/29/2013 Office visit Aleja Walker TITLE ONE KINDERGARTEN TEACHER 08/17/2013 Office visit Aleja Walker TITLE ONE KINDERGARTEN TEACHER 06/02/2013 Office visit Aleja Walker TITLE ONE KINDERGARTEN TEACHER 11/29/2012 Hospital Aramis French MD 11/29/2012 Office visit Aleja Walker TITLE ONE KINDERGARTEN TEACHER 11/17/2012 Office visit Aleja Walker TITLE ONE KINDERGARTEN TEACHER 07/15/2012 Office visit Aleja Walker TITLE ONE KINDERGARTEN TEACHER 12/15/2011 Office visit Aleja Walker TITLE ONE KINDERGARTEN TEACHER 10/20/2011 Office visit Aleja Walker TITLE ONE KINDERGARTEN TEACHER 08/29/2011 Office visit Aleja Walker TITLE ONE KINDERGARTEN TEACHER 03/24/2011 Office visit Aleja Walker TITLE ONE KINDERGARTEN TEACHER 01/08/2011 Office visit Aleja Walker TITLE ONE KINDERGARTEN TEACHER 11/08/2010 Office visit Aleja Walker TITLE ONE KINDERGARTEN TEACHER 08/26/2010 Office visit Aleja Walker TITLE ONE KINDERGARTEN TEACHER 12/20/2009 Office visit Kareen Benitez MD 08/29/2009 Office visit [facility]
--- OUTSIDE RECORDS SUMMARY | 2018-10-29 06:17 | XMS REPORT ---
Author Author Aleja Newell [facility] Address [address] [place], [place] [id number] Care Team Providers Care Cotton Broker Name Role Phone Aleja Newell PCP Aleja [...] route once daily for 4 days Zithromax Z-Nikoals 250 mg oral tablet 09/08/2014 09/10/2014 take [...] 12/18/2015 12:00 AM Decadron, Per 1 Mg [facility]# [address]-20 Reviewed 12/18/2015 12:00 AM Depo-Medrol 40mg Reviewed 08/29/2011 12:00 AM THER/PROPH/DIAG INJ SC/IM Reviewed 08/29/2011 12:00 AM Depo-Medrol 80 mg NDC#[id number]-Natgxfvi Reviewed 08/29/2011 12:00 AM Depo-Medrol 40 mg NDC#[id number] Reviewed 10/22/2011 12:00 AM URINALYSIS AUTO W/O SCOPE Reviewed 10/20/2011 12:00 AM URINE CULTURE/COLONY COUNT Reviewed 08/12/2016 12:00 AM Decadron, Per 1 Mg [facility]# [address]-18 Reviewed 08/12/2016 12:00 AM Depo-Medrol 40mg Injection Reviewed 08/12/2016 12:00 AM ELECTROCARDIOGRAM TRACING Reviewed 12/15/2011 12:00 AM THER/PROPH/DIAG INJ SC/IM Reviewed 12/15/2011 12:00 AM Decadron 1 mg NDC#[id number] (Chad) Reviewed 12/15/2011 12:00 AM Depo-Medrol 80 mg NDC#[id number]-Cwcqfyiq Reviewed 11/18/2016 12:00 AM Decadron, Per 1 Mg NDC# [address]-43 Reviewed 11/18/2016 12:00 AM Depo-Medrol 40mg Injection Reviewed 03/09/2017 12:00 AM COMPLETE CBC W/AUTO DIFF WBC Reviewed 03/09/2017 12:00 AM COMPREHEN METABOLIC PANEL Reviewed 03/09/2017 12:00 AM LIPID PANEL Reviewed 03/09/2017 12:00 AM Decadron, Per 1 Mg [facility]# [address]-19 Reviewed 03/09/2017 12:00 AM Depo-Medrol 40mg Injection Reviewed 03/09/2017 12:00 AM CHEST X-RAY 2VW FRONTAL&LATL Reviewed 03/09/2017 12:00 AM ASSAY THYROID STIM HORMONE Reviewed 06/17/2017 12:00 AM Decadron, Per 1 Mg [facility]# [address]-55 Reviewed 06/17/2017 12:00 AM Depo-Medrol, Per 80 Mg [facility]#7340-1649-87 Reviewed 06/17/2017 12:00 AM CHEST X-RAY 2VW FRONTAL&LATL Reviewed 07/15/2012 12:00 AM THER/PROPH/DIAG INJ SC/IM Reviewed 07/15/2012 12:00 AM Decadron 1 mg [facility]#[id number] (Chad) Reviewed 07/15/2012 12:00 AM Depo-Medrol 80 mg [facility]#[id number]-Zijtvtze Reviewed 07/15/2012 12:00 AM COMPLETE CBC W/AUTO [...] 07/22/2018 12:00 AM Decadron, Per 1 Mg [facility]# [address]-93 Reviewed 07/22/2018 12:00 AM Depo-Medrol, Per 80 Mg [facility]#6730-4737-16 Reviewed 07/22/2018 12:00 AM CHEST X-RAY 2VW [...] Reviewed 08/26/2010 12:00 AM Decadron 1 mg NDC#[id number] (Chad) Reviewed 08/26/2010 12:00 AM Depo-Medrol 80 mg NDC#[id number]-Kiymbulm Reviewed 08/26/2010 12:00 AM THER/PROPH/DIAG INJ SC/IM Reviewed 08/26/2010 12:00 AM Decadron 8 mg NDC#[id number] (Chad) Reviewed 08/26/2010 12:00 AM Depo-Medrol 80 mg NDC#[id number]-Yvhetzlr Reviewed 08/29/2009 12:00 AM FLU VACCINE 3 [...] Reviewed 07/03/2014 12:00 AM Depo-Medrol 80 mg NDC#[address]-47 Reviewed 09/05/2014 11:17 AM URINALYSIS AUTO W/O SCOPE Reviewed 09/05/2014 12:00 AM URINE CULTURE/COLONY COUNT Reviewed 01/08/2011 12:00 AM Depo-Medrol 80 mg NDC#[id number]-Vbgqklwe Reviewed 01/08/2011 12:00 AM Decadron 8 mg NDC#[id number] (Chad) Reviewed 01/09/2015 12:00 AM COMPLETE CBC [...] Vis Given Vis Pub CVX Influenza 07/15/2012 [employer] SKB FLUZONE [id number] Intramuscular Left Deltoid 07/15/2012 02/09/2012 141 X 07/15/2012 [employer] MSD PNEUMOVAX 23 [id number] Intramuscular Left Deltoid 07/15/2012 09/11/2011 999 History [...] Number Policy Group Number Start Date Medicare [facility] Medicare [facility] [id number] N/A Medicare Part B Medicare Of [place] [id number] Thursday, 2003 Medicare Part A Medicare Part A [id number] N/A Medicare Part A Medicare - Lab/Xray [id number] N/A History of Encounters Visit Date Visit Type Provider 07/22/2018 Office visit 07/22/2018 Office visit 07/22/2018 Office visit Aleja Newell GRAPHIC ARTS INSTRUCTOR 06/17/2017 Office visit Aleja Newell GRAPHIC ARTS INSTRUCTOR 03/09/2017 Office visit Aleja Walker GRAPHIC ARTS INSTRUCTOR 11/18/2016 Office visit Aleja Walker GRAPHIC ARTS INSTRUCTOR 08/12/2016 Office visit Aleja Walker GRAPHIC ARTS INSTRUCTOR 08/12/2016 Laboratory Aramis French MD 12/18/2015 Office visit Aleja Walker GRAPHIC ARTS INSTRUCTOR 07/02/2015 Office visit Aleja Walker GRAPHIC ARTS INSTRUCTOR 09/05/2014 Office visit Ebony Almodovar GRAPHIC ARTS INSTRUCTOR 07/03/2014 Office visit Ebony Almodovar GRAPHIC ARTS INSTRUCTOR 12/29/2013 Office visit Aleja Walker GRAPHIC ARTS INSTRUCTOR 08/17/2013 Office visit Aleja Walker GRAPHIC ARTS INSTRUCTOR 06/02/2013 Office visit Aleja Walker GRAPHIC ARTS INSTRUCTOR 11/29/2012 Hospital Aramis French MD 11/29/2012 Office visit Aleja Walker GRAPHIC ARTS INSTRUCTOR 11/17/2012 Office visit Aleja Walker GRAPHIC ARTS INSTRUCTOR 07/15/2012 Office visit Aleja Walker GRAPHIC ARTS INSTRUCTOR 12/15/2011 Office visit Aleja Walker GRAPHIC ARTS INSTRUCTOR 10/20/2011 Office visit Aleja Walker GRAPHIC ARTS INSTRUCTOR 08/29/2011 Office visit Aleja Walker GRAPHIC ARTS INSTRUCTOR 03/24/2011 Office visit Aleja Walker GRAPHIC ARTS INSTRUCTOR 01/08/2011 Office visit Aleja Walker GRAPHIC ARTS INSTRUCTOR 11/08/2010 Office visit Aleja Walker GRAPHIC ARTS INSTRUCTOR 08/26/2010 Office visit Aleja Walker GRAPHIC ARTS INSTRUCTOR 12/20/2009 Office visit Kareen Benitez MD 08/29/2009 Office visit [facility]
--- OUTSIDE RECORDS SUMMARY | 2018-10-29 06:18 | XMS REPORT ---
Author Author Aleja Newell [facility] Address [address] [place], [place] [address] Care Team Providers Care Certified Medication Technician Name Role Phone Aleja Newell PCP Aleja Newell PreferredProvider Allergies and Adverse Reactions Name Reaction Notes PENICILLINS SULFA (SULFONAMIDES) prednisone Blisters in Mouth, upset stomach dirrhea Plan of Treatment Planned Activity Comments Planned Date Planned Time Plan/Goal Liver function panel 07/02/2015 12:00 AM f/u prostate surgery, elevated PSA CT CHEST W/CONTRAST 06/17/2017 12:00 AM BMP 06/22/2017 12:00 AM CBC With Auto Differential 07/22/2018 12:00 AM CMP (comprehensive metabolic panel) 07/22/2018 12:00 AM .Lipid Panel 07/22/2018 12:00 AM CX CHEST 2 VIEWS 07/22/2018 12:00 AM TSH 07/22/2018 12:00 AM PSA 07/22/2018 12:00 AM MRI of shoulder, with and without contrast material 12/29/2013 12:00 AM Medications Active Name Start Date Estimated Completion Date SIG Comments ipratropium-albuterol 0.5 mg-3 mg(2.5 mg base)/3 mL inhalation solution for nebulization 08/17/2013 inhale 3 milliliters by nebulization route 4 times per day and as needed, up to 6 doses per day Advair Diskus 250-50 mcg/dose inhalation blister with [...] APPROXIMATELY 12 HOURS APART Vane Allergy oral ProAir HFA 90 mcg/actuation inhalation HFA aerosol inhaler 11/18/2016 inhale 1 puff (90 mcg) by inhalation route every 4-6 hours as needed Advair Diskus 250-50 mcg/dose inhalation blister with device 07/22/2018 INHALE 1 PUFF BY INHALATION ROUTE 2 TIMES PER DAY IN THE MORNING AND EVENING APPROXIMATELY 12 HOURS APART ipratropium-albuterol 0.5 mg-3 mg(2.5 mg base)/3 mL inhalation solution for nebulization 07/22/2018 INHALE 3 MILLILITERS BY NEBULIZATION ROUTE 4 TIMES PER DAY AND NEEDED, UP TO 6 DOSES PER DAY lisinopril 10 mg oral tablet 07/22/2018 TAKE 1 TABLET (10 MG) BY ORAL ROUTE ONCE DAILY FOR 30 DAYS ProAir HFA 90 mcg/actuation inhalation HFA aerosol inhaler 07/22/2018 INHALE 1 PUFF (90 MCG) BY INHALATION ROUTE EVERY 4-6 HOURS NEEDED Name Start Date Expiration Date SIG Comments [...] 12/18/2015 12:00 AM Decadron, Per 1 Mg ND# [address]-42 Reviewed 12/18/2015 12:00 AM Depo-Medrol 40mg Reviewed 08/29/2011 12:00 AM THER/PROPH/DIAG INJ SC/IM Reviewed 08/29/2011 12:00 AM Depo-Medrol 80 mg NDC#[id number]-Qkhnafxu Reviewed 08/29/2011 12:00 AM Depo-Medrol 40 mg NDC#[id number] Reviewed 10/22/2011 12:00 AM URINALYSIS AUTO W/O SCOPE Reviewed 10/20/2011 12:00 AM URINE CULTURE/COLONY COUNT Reviewed 08/12/2016 12:00 AM Decadron, Per 1 Mg [facility]# [address]-16 Reviewed 08/12/2016 12:00 AM Depo-Medrol 40mg Injection Reviewed 08/12/2016 12:00 AM ELECTROCARDIOGRAM TRACING Reviewed 12/15/2011 12:00 AM THER/PROPH/DIAG INJ SC/IM Reviewed 12/15/2011 12:00 AM Decadron 1 mg NDC#[id number] (Chad) Reviewed 12/15/2011 12:00 AM Depo-Medrol 80 mg [facility]#[id number]-Dnnjuhrf Reviewed 11/18/2016 12:00 AM Decadron, Per 1 Mg [facility]# [address]-66 Reviewed 11/18/2016 12:00 AM Depo-Medrol 40mg Injection Reviewed 03/09/2017 12:00 AM COMPLETE CBC W/AUTO DIFF WBC Reviewed 03/09/2017 12:00 AM COMPREHEN METABOLIC PANEL Reviewed 03/09/2017 12:00 AM LIPID PANEL Reviewed 03/09/2017 12:00 AM Decadron, Per 1 Mg [facility]# [address]-95 Reviewed 03/09/2017 12:00 AM Depo-Medrol 40mg Injection Reviewed 03/09/2017 12:00 AM CHEST X-RAY 2VW FRONTAL&LATL Reviewed 03/09/2017 12:00 AM ASSAY THYROID STIM HORMONE Reviewed 06/17/2017 12:00 AM Decadron, Per 1 Mg [facility]# [address]-60 Reviewed 06/17/2017 12:00 AM Depo-Medrol, Per 80 Mg [facility]#4835-1791-78 Reviewed 06/17/2017 12:00 AM CHEST X-RAY 2VW FRONTAL&LATL Reviewed 07/15/2012 12:00 AM THER/PROPH/DIAG INJ SC/IM Reviewed 07/15/2012 12:00 AM Decadron 1 mg [facility]#[id number] (Chad) Reviewed 07/15/2012 12:00 AM Depo-Medrol 80 mg [facility]#[id number]-Ffvhcfsu Reviewed 07/15/2012 12:00 AM COMPLETE CBC W/AUTO [...] AM ELECTROCARDIOGRAM COMPLETE Reviewed 07/22/2018 12:00 AM Decadron, Per 1 Mg [facility]# [address]-00 Reviewed 07/22/2018 12:00 AM Depo-Medrol, Per 80 Mg [facility]#4984-7735-91 Reviewed 12/20/2009 12:00 AM IMMUNIZATION ADMIN Reviewed [...] Reviewed 08/26/2010 12:00 AM Decadron 1 mg NDC#08697967543 (Chad) Reviewed 08/26/2010 12:00 AM Depo-Medrol 80 mg NDC#[id number]-Dyhvreet Reviewed 08/26/2010 12:00 AM THER/PROPH/DIAG INJ SC/IM Reviewed 08/26/2010 12:00 AM Decadron 8 mg NDC#[id number] (Chad) Reviewed 08/26/2010 12:00 AM Depo-Medrol 80 mg NDC#[id number]-Wfhccxsw Reviewed 08/29/2009 12:00 AM FLU VACCINE 3 [...] Reviewed 07/03/2014 12:00 AM Depo-Medrol 80 mg NDC#[address]-69 Reviewed 09/05/2014 11:17 AM URINALYSIS AUTO W/O SCOPE Reviewed 09/05/2014 12:00 AM URINE CULTURE/COLONY COUNT Reviewed 01/08/2011 12:00 AM Depo-Medrol 80 mg [facility]#[id number]-Xtlkoapz Reviewed 01/08/2011 12:00 AM Decadron 8 mg [facility]#[id number] () Reviewed 01/09/2015 12:00 AM COMPLETE CBC W/AUTO [...] Vis Given Vis Pub CVX Influenza 07/15/2012 [employer] SKB FLUZONE [id number] Intramuscular Left Deltoid 07/15/2012 02/09/2012 141 X 07/15/2012 [employer] MSD PNEUMOVAX 23 [id number] Intramuscular Left Deltoid 07/15/2012 09/11/2011 999 History [...] 9:40AM Seasonal allergies Jul 22 2018 9:40AM Payers Insurance Name Company Name Plan Name Plan Number Policy Number Policy Group Number Start Date Medicare RHC Medicare RHC [id number] N/A Medicare Part B Medicare Of [place] [id number] Thursday, 2003 Medicare Part A Medicare Part A [id number] N/A Medicare Part A Medicare - Lab/Xray [id number] N/A History of Encounters Visit Date Visit Type Provider 07/22/2018 Office visit 07/22/2018 Office visit 07/22/2018 Office visit Aleja Walker DONATION WORKER 06/17/2017 Office visit Aleja Walker DONATION WORKER 03/09/2017 Office visit Aleja Walker DONATION WORKER 11/18/2016 Office visit Aleja Walker DONATION WORKER 08/12/2016 Office visit Aleja Walker DONATION WORKER 08/12/2016 Laboratory Aramis French MD 12/18/2015 Office visit Aleja Walker DONATION WORKER 07/02/2015 Office visit Aleja Walker DONATION WORKER 09/05/2014 Office visit Ebonyclint Almodovar DONATION WORKER 07/03/2014 Office visit Ebony Almodovar DONATION WORKER 12/29/2013 Office visit Aleja Walker DONATION WORKER 08/17/2013 Office visit Aleja Walker DONATION WORKER 06/02/2013 Office visit Aleja Walker DONATION WORKER 11/29/2012 Hospital Aramis French MD 11/29/2012 Office visit Aleja Walker DONATION WORKER 11/17/2012 Office visit Aleja Walker DONATION WORKER 07/15/2012 Office visit Aleja Walker DONATION WORKER 12/15/2011 Office visit Aleja Walker DONATION WORKER 10/20/2011 Office visit Aleja Walker DONATION WORKER 08/29/2011 Office visit Aleja Walker DONATION WORKER 03/24/2011 Office visit Aleja Walker DONATION WORKER 01/08/2011 Office visit Aleja Walker DONATION WORKER 11/08/2010 Office visit Aleja Walker DONATION WORKER 08/26/2010 Office visit Aleja Walker DONATION WORKER 12/20/2009 Office visit Kareen Benitez MD 08/29/2009 Office visit [facility]
--- OUTSIDE RECORDS SUMMARY | 2018-10-29 06:19 | XMS REPORT ---
Author Author Aleja Newell [facility] Address [address] [place], [place] [address] Care Team Providers Care Rating Specialist Name Role Phone Aleja Newell PCP Unavailable Aleja Newell PreferredProvider Unavailable Allergies and Adverse Reactions Name Reaction Notes PENICILLINS SULFA (SULFONAMIDES) prednisone Blisters in Mouth, upset stomach dirrhea Plan of Treatment Planned Activity Comments Planned Date Planned Time Plan/Goal Liver function panel 07/02/2015 12:00 AM f/u prostate surgery, elevated PSA CX CHEST 2 VIEWS 06/17/2017 12:00 AM MRI of shoulder, with and [...] mg base)/3 mL inhalation solution for nebulization 12/18/2015 INHALE 3 MILLILITERS BY NEBULIZATION ROUTE 4 TIMES PER DAY AND NEEDED, UP TO 6 DOSES PER DAY Advair Diskus 250-50 mcg/dose inhalation blister with device 10/07/2016 INHALE 1 PUFF BY INHALATION ROUTE 2 TIMES PER DAY IN THE MORNING AND EVENING APPROXIMATELY 12 HOURS APART Vane Allergy oral ProAir HFA 90 mcg/actuation inhalation HFA aerosol inhaler 11/18/2016 inhale 1 puff (90 mcg) by inhalation route every 4-6 hours as needed ProAir HFA 90 mcg/actuation inhalation HFA aerosol inhaler 03/05/2017 INHALE 1 PUFF (90 MCG) BY INHALATION ROUTE EVERY 4-6 HOURS NEEDED doxycycline monohydrate 100 mg oral tablet 06/17/2017 06/24/2017 take 1 tablet by oral route 2 times a day for 7 days Name Start Date Expiration [...] oral route once daily for 7 days lisinopril 10 mg oral tablet 03/13/2017 06/11/2017 take 1 tablet (10 mg) by oral route once daily for 30 days Discontinued Name Start Date Discontinued Date [...] HC BMI BSA BMI Percentile O2 Sat(%) 06/17/2017 9:33:00 AM 137 mmHg 80 mmHg [...] rpm 97.4 F 205.5 lbs 72 in 27.87 kg/m2 2.18 m2 92 % 03/24/2011 9:31:00 AM 142 mmHg 74 mmHg 88 bpm 24 rpm 97.8 F 211 lbs 72 in 28.6165 kg/m 2.205 m 92 % 01/08/2011 10:51:00 AM 160 mmHg [...] rpm 98.8 F 212 lbs 72 in 28.75 kg/m2 2.21 m2 Social History Name Description Comments denies alcohol [...] 12:00 AM Decadron, Per 1 Mg ND# [address]-23 Reviewed 12/18/2015 12:00 AM Depo-Medrol 40mg Reviewed 08/29/2011 12:00 AM THER/PROPH/DIAG INJ SC/IM Reviewed 08/29/2011 12:00 AM Depo-Medrol 80 mg NDC#[id number]-Rufpmume Reviewed 08/29/2011 12:00 AM Depo-Medrol 40 mg NDC#[id number] Reviewed 10/22/2011 12:00 AM URINALYSIS AUTO W/O SCOPE Reviewed 10/20/2011 12:00 AM URINE CULTURE/COLONY COUNT Reviewed 08/12/2016 12:00 AM Decadron, Per 1 Mg ND# [address]-57 Reviewed 08/12/2016 12:00 AM Depo-Medrol 40mg Injection Reviewed 08/12/2016 12:00 AM ELECTROCARDIOGRAM TRACING Reviewed 12/15/2011 12:00 AM THER/PROPH/DIAG INJ SC/IM Reviewed 12/15/2011 12:00 AM Decadron 1 mg NDC#[id number] (Chad) Reviewed 12/15/2011 12:00 AM Depo-Medrol 80 mg NDC#[id number]-Fqqdqoer Reviewed 11/18/2016 12:00 AM Decadron, Per 1 Mg NDC# [address]-83 Reviewed 11/18/2016 12:00 AM Depo-Medrol 40mg Injection Reviewed 03/09/2017 12:00 AM COMPLETE CBC W/AUTO DIFF WBC Reviewed 03/09/2017 12:00 AM COMPREHEN METABOLIC PANEL Reviewed 03/09/2017 12:00 AM LIPID PANEL Reviewed 03/09/2017 12:00 AM Decadron, Per 1 Mg NDC# [address]-98 Reviewed 03/09/2017 12:00 AM Depo-Medrol 40mg Injection Reviewed 03/09/2017 12:00 AM CHEST X-RAY 2VW FRONTAL&LATL Reviewed 03/09/2017 12:00 AM ASSAY THYROID STIM HORMONE Reviewed 06/17/2017 12:00 AM Decadron, Per 1 Mg [facility]# [address]-69 Reviewed 06/17/2017 12:00 AM Depo-Medrol, Per 80 Mg [facility]#9390-6400-47 Reviewed 07/15/2012 12:00 AM THER/PROPH/DIAG INJ SC/IM Reviewed 07/15/2012 12:00 AM Decadron 1 mg [facility]#[id number] (Chad) Reviewed 07/15/2012 12:00 AM Depo-Medrol 80 mg [facility]#[id number]-Wwxewpnv Reviewed 07/15/2012 12:00 AM COMPLETE CBC W/AUTO DIFF WBC Reviewed 07/15/2012 12:00 AM COMPREHEN METABOLIC PANEL Reviewed 07/15/2012 12:00 AM LIPID PANEL Reviewed 07/15/2012 12:00 AM IMMUNIZATION ADMIN EACH ADD Reviewed 07/15/2012 12:00 AM IMMUNIZATION ADMIN Reviewed 07/15/2012 12:00 AM FLU VACCINE 3 YRS & > IM Reviewed 07/15/2012 12:00 AM PNEUMOCOCCAL VACC 23 CHANTELLE IM Reviewed 11/29/2012 12:00 AM ELECTROCARDIOGRAM COMPLETE Reviewed 12/20/2009 12:00 AM IMMUNIZATION ADMIN Reviewed [...] Reviewed 08/26/2010 12:00 AM Decadron 1 mg ND#[id number] (Chad) Reviewed 08/26/2010 12:00 AM Depo-Medrol 80 mg ND#[id number]-Hcanjocm Reviewed 08/26/2010 12:00 AM THER/PROPH/DIAG INJ SC/IM Reviewed 08/26/2010 12:00 AM Decadron 8 mg [facility]#[id number] (Chad) Reviewed 08/26/2010 12:00 AM Depo-Medrol 80 mg [facility]#[id number]-Kffrbecm Reviewed 08/29/2009 12:00 AM FLU VACCINE 3 [...] Reviewed 07/03/2014 12:00 AM Depo-Medrol 80 mg [facility]#[address]-83 Reviewed 09/05/2014 11:17 AM URINALYSIS AUTO W/O SCOPE Reviewed 09/05/2014 12:00 AM URINE CULTURE/COLONY COUNT Reviewed 01/08/2011 12:00 AM Depo-Medrol 80 mg [facility]#[id number]-Aiguatkz Reviewed 01/08/2011 12:00 AM Decadron 8 mg [facility]#[id number] (Chad) Reviewed 01/09/2015 12:00 AM COMPLETE CBC W/AUTO DIFF WBC Reviewed 01/09/2015 12:00 AM COMPREHEN METABOLIC PANEL Reviewed 01/09/2015 12:00 AM LIPID PANEL Reviewed 01/09/2015 12:00 AM ASSAY OF PSA FREE Reviewed Results Summary Date and Description Results 01/23/2010 8:29 AM TRIGLYCERIDES 58.0 mg/dLCHOLESTEROL 185.0 [...] dLTOT CHOL/HDL 3.9 LDL (CALC) 109.0 mg/dL History Of Immunizations Name Date Admin Mfg Name Mfg Code Trade Name Lot# Route Inj Vis Given Vis Pub CVX Influenza 07/15/2012 [employer]oSm[employer] SKB Fluzone [id number] Intramuscular Left Deltoid 07/15/2012 02/09/2012 141 X 07/15/2012 [employer]ck [employer] MSD Pneumovax 23 [id number] Intramuscular Left Deltoid 07/15/2012 09/11/2011 999 History [...] acute exacerbation Jun 17 2017 9: 34AM Payers Insurance Name Company Name Plan Name Plan Number Policy Number Policy Group Number Start Date Medicare RHC Medicare RHC [id number] N/A Medicare Part B Medicare Of [place] [id number] Thursday, 2003 Medicare Part A Medicare Part A [id number] N/A Medicare Part A Medicare - Lab/Xray [id number] N/A History of Encounters Visit Date Visit Type Provider 06/17/2017 Office visit Aleja Newell SERVICE PORTER 03/09/2017 Office visit Aleja Newell SERVICE PORTER 11/18/2016 Office visit Aleja Newell SERVICE PORTER 08/12/2016 Office visit Aleja Newell SERVICE PORTER 08/12/2016 Laboratory Aramis French MD 12/18/2015 Office visit Aleja Newell SERVICE PORTER 07/02/2015 Office visit Aleja Newell SERVICE PORTER 09/05/2014 Office visit Ebony Almodovar SERVICE PORTER 07/03/2014 Office visit Ebony Almodovar SERVICE PORTER 12/29/2013 Office visit Aleja Newell SERVICE PORTER 08/17/2013 Office visit Aleja Newell SERVICE PORTER 06/02/2013 Office visit Aleja Newell SERVICE PORTER 11/29/2012 Hospital Aramis French MD 11/29/2012 Office visit Aleja Newell SERVICE PORTER 11/17/2012 Office visit Aleja Newell SERVICE PORTER 07/15/2012 Office visit Aleja Newell SERVICE PORTER 12/15/2011 Office visit Aleja Newell SERVICE PORTER 10/20/2011 Office visit Aleja Newell SERVICE PORTER 08/29/2011 Office visit Aleja Newell SERVICE PORTER 03/24/2011 Office visit Aleja Newell SERVICE PORTER 01/08/2011 Office visit Aleja Newell SERVICE PORTER 11/08/2010 Office visit Aleja Newell SERVICE PORTER 08/26/2010 Office visit Aleja Newell SERVICE PORTER 12/20/2009 Office visit Kareen Benitez MD 08/29/2009 Office visit [facility]
--- OUTSIDE RECORDS SUMMARY | 2018-10-29 06:19 | XMS REPORT ---
Author Author [facility] Organization [facility] Address [address] [place], [place] [id number] Care Team Providers Care Security System Engineer Name Role Phone PCP Unavailable Allergies and Adverse Reactions Name Reaction Notes PENICILLINS SULFA (SULFONAMIDES) Levaquin sores on tongue Plan of Treatment Planned Activity Comments Planned Date Planned Time Plan/Goal MRI JOINT UPR EXTR W/O&W/DYE 12/29/2013 12:00 AM COMPLETE CBC W/AUTO DIFF WBC 01/09/2015 12:00 AM COMPREHEN METABOLIC PANEL 01/09/2015 12:00 AM LIPID PANEL 01/09/2015 12:00 AM ASSAY OF PSA FREE 01/09/2015 12:00 AM Medications Active Name Start Date Estimated Completion Date SIG Comments ipratropium-albuterol inhalation solution for nebulization 0.5 mg-3 mg(2.5 mg base)/3 mL 08/17/2013 inhale 3 milliliters by nebulization route 4 times per day and as needed, up to 6 doses per day hydrochlorothiazide oral tablet 25 mg 05/01/2014 TAKE 1 TABLET BY ORAL ROUTE DAILY Advair Diskus Inhalation Disk with Device 250-50 mcg/dose 08/04/2014 inhale 1 puff by inhalation route 2 times per day in the morning and evening approximately 12 hours apart ipratropium-albuterol inhalation solution for nebulization 0.5 mg-3 mg(2.5 mg base)/3 mL 08/31/2014 INHALE 3 MILLILITERS BY NEBULIZATION ROUTE 4 TIMES PER DAY AND NEEDED, UP TO 6 DOSES PER DAY Advair Diskus inhalation blister with device 250-50 mcg/dose 10/13/2014 INHALE 1 PUFF BY INHALATION ROUTE 2 TIMES PER DAY IN THE MORNING AND EVENING APPROXIMATELY 12 HOURS APART Name Start Date Expiration Date SIG Comments Cipro Oral Tablet 500 mg 10/20/2011 10/27/2011 take 1 tablet (500 mg) by oral route every 12 hours for 7 days doxycycline hyclate Oral Tablet 100 mg 12/15/2011 12/25/2011 take 1 tablet ( 100 mg) by oral route every 12 hours for 10 days prednisone Oral Tablet 20 mg 12/15/2011 12/31/2011 take 60mg daily x4 days then 40mg x4 days then 20mg x4 days then 10mg x4 days. Hydrochlorothiazide Oral Tablet 25 mg 01/30/2012 01/24/2013 take 1 tablet by oral route daily fexofenadine Oral tablet 60 mg 07/15/2012 07/10/2013 take 1 tablet (60 mg) by oral route 2 times per day for 90 days doxycycline hyclate Oral tablet 100 mg 07/30/2012 08/09/2012 take 1 tablet ( 100 mg) by oral route 2 times per day for 10 days doxycycline monohydrate Oral tablet 100 mg 11/17/2012 11/24/2012 take 1 tablet (100 mg) by oral route 2 times per day for 7 days albuterol sulfate Inhalation HFA Aerosol Inhaler 90 mcg/actuation 11/17/2012 06/15/2013 Inhale 2 puff (90 mcg/actuation) by inhalation route every four hours as needed for 30 days Cipro Oral tablet 500 mg 06/02/2013 06/09/2013 take 1 tablet (500 mg) by oral route 2 times per day for 7 days Zithromax Z-Nikolas oral tablet 250 mg 12/29/2013 01/03/2014 take 2 tablets (500 mg) by oral route once daily for 1 day then 1 tablet (250 mg) by oral route once daily for 4 days Zithromax Z-Nikolas oral tablet 250 mg 07/03/2014 07/08/2014 take 2 tablets ( 500 mg) by oral route once daily for 1 day then 1 tablet (250 mg) by oral route once daily for 4 days Zithromax Z-Nikolas oral tablet 250 mg 09/08/2014 09/10/2014 take 2 tablets (500 mg ) by oral route once daily for 1 day then 1 tablet (250 mg) by oral route once daily for 4 days Macrobid oral capsule 100 mg 09/11/2014 09/18/2014 take 1 capsule (100 mg) by oral route every 12 hours with food for 7 days Discontinued Name Start Date Discontinued Date SIG Comments Alphagan P Ophthalmic Drops 0.15 % 07/15/2012 instill 1 drop in affected eye 2 times a day Levaquin Oral Tablet 750 mg 11/08/2010 11/08/2010 take 1 tablet (750 mg) by oral route once daily for 7 days Medrol (Nikolas) Oral Tablets, Dose Pack 4 mg 11/08/2010 03/25/2011 take as directed Advair Diskus Inhalation with Device 250-50 mcg/dose 01/08/2011 10/20/2011 inhale 1 puff by inhalation route 2 times per day in the morning and evening approximately 12 hours apart for 90 days Brovana Inhalation Solution for Nebulization 15 mcg/2 mL 08/29/2011 07/15/2012 inhale 2 milliliters (15 mcg) by inhalation route 2 times per day Zithromax Z-Nikolas Oral Tablet 250 mg 10/20/2011 10/20/2011 take 2 tablets (500 mg) by oral route once daily for 1 day then 1 tablet (250 mg) by oral route once daily for 4 days Pulmicort Flexhaler Inhalation Aerosol Powdr Breath Activated 180 mcg/ actuation 12/15/2011 07/15/2012 inhale 2 puffs (360 mcg) by inhalation route 2 times per day Advair HFA Inhalation HFA Aerosol Inhaler 230-21 mcg/actuation 07/15/201208/27 inhale 2 puffs by inhalation route 2 times per day in the morning and evening prednisone Oral tablet 20 mg 11/17/2012 06/02/2013 take 3 tabs x2 days then 2 tabs x2 days then 1 tab x2 days Tudorza Pressair Inhalation Aerosol Powdr Breath Activated 400 mcg/actuation 06/02/2013 inhale 1 puff (400 mcg) by inhalation route every 12 hours prednisone Oral tablet 20 mg 06/02/2013 08/17/2013 take 2 tabs x2 days then 1 tab x4 days prednisone oral tablet 20 mg 08/17/2013 12/29/2013 take 60mg x2 days then 40mg x2 days then 1 tablet daily x4 days. cyclobenzaprine oral tablet 10 mg 12/29/2013 07/03/2014 take 1 tablet by mouth daily at HS albuterol sulfate inhalation HFA aerosol inhaler 90 mcg/actuation 02/21/2014 INHALE 2 PUFF (90 MCG/ACTUATION) BY INHALATION ROUTE EVERY FOUR HOURS NEEDED FOR 30 DAYS Problem List Description Status Onset Asthma Active Chronic Obstructive Pulmonary Disease Active Hypertension Active Vital Signs Date Time BP-Sys(mm[Hg] BP-Muriel(mm[Hg]) HR(bpm) RR(rpm) Temp WT HT HC BMI BSA BMI Percentile O2 Sat(%) 09/05/2014 11:08:00 AM 120 mmHg 60 mmHg [...] F 207.5 lbs 72 in 28.1418 kg/m 2.19 m2 93 % 07/15/2012 9:37:00 AM 128 mmHg 66 mmHg 72 bpm 18 rpm 97.8 F 204.375 lbs 72 in 27.72 kg/m2 2.1701 m 99 % 12/15/2011 3:15:00 PM 130 mmHg 64 mmHg 75 bpm 20 rpm 99.1 F 205.5 lbs 72 in 27.8705 kg/m 2.18 m2 94 % 10/20/2011 11:00:00 AM 140 mmHg 80 mmHg 110 bpm 18 rpm 99.2 F 89 % 08/29/2011 9:32:00 AM 142 mmHg 82 mmHg 93 bpm 18 rpm 97.4 F 205.5 lbs 72 in 27.8705 kg/m 2.18 m2 92 % 03/24/2011 9:31:00 AM 142 mmHg 74 mmHg 88 bpm 24 rpm 97.8 F 211 lbs 72 in 28.62 kg/m2 2.205 m 92 % 01/08/2011 10:51:00 AM [...] F 212 lbs 72 in 28.7521 kg/m 2.21 m2 Social History Name Description Comments denies alcohol use Regular Exercise Tobacco Current every day smoker History of Procedures Date Ordered Description Order Status 08/29/2011 12:00 AM THER/PROPH/DIAG INJ SC/IM Reviewed 10/22/2011 12:00 AM URINALYSIS AUTO W/O SCOPE Reviewed 10/20/2011 12:00 AM URINE CULTURE/COLONY COUNT Returned 12/15/2011 12:00 AM THER/PROPH/DIAG INJ SC/IM Reviewed 07/15/2012 12:00 AM THER/PROPH/DIAG INJ SC/IM Reviewed 07/15/2012 12:00 AM COMPLETE CBC W/AUTO DIFF WBC Returned 07/15/2012 12:00 AM COMPREHEN METABOLIC PANEL Returned 07/15/2012 12:00 AM LIPID PANEL Returned 07/15/2012 12:00 AM IMMUNIZATION ADMIN EACH ADD Reviewed 07/15/2012 12:00 AM IMMUNIZATION ADMIN Reviewed 07/15/2012 12:00 AM FLU VACCINE 3 YRS & > IM Reviewed 07/15/2012 12:00 AM PNEUMOCOCCAL VACC 23 CHANTELLE IM Reviewed 12/20/2009 12:00 AM IMMUNIZATION ADMIN Reviewed 12/20/2009 12:00 AM TETANUS VACCINE IM Reviewed 01/23/2010 12:00 AM COMPLETE CBC W/AUTO DIFF WBC Reviewed 01/23/2010 12:00 AM COMPREHEN METABOLIC PANEL Reviewed 01/23/2010 12:00 AM LIPID PANEL Reviewed 01/23/2010 12:00 AM ASSAY THYROID STIM HORMONE Reviewed 01/23/2010 12:00 AM ASSAY OF PSA TOTAL Reviewed 08/26/2010 12:00 AM THER/PROPH/DIAG INJ SC/IM Reviewed 08/26/2010 12:00 AM THER/PROPH/DIAG INJ SC/IM Reviewed 08/29/2009 12:00 AM FLU VACCINE 3 [...] 07/03/2014 12:00 AM THER/PROPH/DIAG INJ SC/IM Reviewed 09/05/2014 11:17 AM URINALYSIS AUTO W/O SCOPE Reviewed 09/05/2014 12:00 AM URINE CULTURE/COLONY COUNT Returned Results Summary Data and Description Results 08/29/2009 10:45 AM Cholest Cry Stone Ql IR 0.0 %Colonoscopy-Women and Men over 50 Declined PSA SerPl-mCnc 0.0 ng/mL 01/23/2010 8:29 AM TRIGLYCERIDES 58.0 mg/dLCHOLESTEROL 185.0 mg/dLHDL 45.0 mg/ dLLDL (CALC) 128.0 mg/dLPSA TOTAL 4.480 ng/mLTSH 1.370 uIU/mLGLUCOSE 104.0 mg/ dLSODIUM 140.0 mmol/LPOTASSIUM 4.20 mmol/LCHLORIDE 104.0 mmol/LCO2 29.0 mmol/ LBUN 15.0 mg/dLCREATININE 0.80 mg/dLSGOT/AST 31.0 IU/LSGPT/ALT 39.0 IU/LALK PHOS 137.0 IU/LTOTAL PROTEIN 7.20 g/dLALBUMIN 3.60 g/dLTOTAL BILI 0.50 mg/ dLCALCIUM 9.10 mg/dLeGFR >60 mL/min/1.73 m2 09/24/2010 8:50 AM PSA TOTAL 8.90 ng/mLPSA TOTAL 8.90 ng/mL 11/08/2010 2:16 PM WBC 8.8 RBC 5.37 HGB 15.30 g/dLHCT 46.30 %MCV 86.0 fLMCH 28.50 pgMCHC 33.0 g/dLRDW CV 15.20 %MPV 11.0 fLPLT 97 %NEUT 69.90 %%LYMP 14.70 % %MONO 13.40 %%EOS 1.30 %%BASO 0.70 %#NEUT 6.15 #LYMP 1.29 #MONO 1.18 #EOS 0.11 # BASO 0.06 GLUCOSE 100.0 mg/dLSODIUM 137.0 mmol/LPOTASSIUM 3.70 mmol/LCHLORIDE 99.0 mmol/LCO2 25.0 mmol/LBUN 14.0 mg/dLCREATININE 1.0 mg/dLSGOT/AST 30.0 IU/ LSGPT/ALT 22.0 IU/LALK PHOS 78.0 IU/LTOTAL PROTEIN 7.10 g/dLALBUMIN 3.90 g/ dLTOTAL BILI 0.80 mg/dLCALCIUM 8.80 mg/dLeGFR >60 mL/min/1.73 m2 07/28/2012 9:00 AM GLUCOSE 120.0 mg/dLSODIUM 138.0 mmol/LPOTASSIUM 3.50 mmol/ LCHLORIDE 100.0 mmol/LCO2 30.0 mmol/LBUN 17.0 mg/dLCREATININE 0.90 mg/dLSGOT/ AST 23.0 IU/LSGPT/ALT 34.0 IU/LALK PHOS 102.0 IU/LTOTAL PROTEIN 6.80 g/ dLALBUMIN 3.60 g/dLTOTAL BILI 1.40 mg/dLCALCIUM 9.20 mg/dLeGFR 60 WBC 14.2 RBC 4.88 HGB 14.10 g/dLHCT 41.90 %MCV 86.0 fLMCH 28.90 pgMCHC 33.70 g/dLRDW CV 15.0 %MPV 10.40 fLPLT 150 %NEUT 81.50 %%LYMP 8.0 %%MONO 9.0 %%EOS 1.10 %%BASO 0.40 %# NEUT 11.59 #LYMP 1.13 #MONO 1.28 #EOS 0.15 #BASO 0.05 EOS 2.0 %TRIGLYCERIDES 77.0 mg/dLCHOLESTEROL 144.0 mg/dLHDL 32.0 mg/dLLDL (CALC) 97.0 mg/dL 09/05/2014 11:17 AM Bilirub Ur Ql Strip small Glucose Ur-sCnc negative Hgb Ur Ql Strip blood large Ketones Ur Ql Strip trace Nitrite Ur Ql Strip positive pH Ur-LsCnc 6 Prot Ur Ql Strip 30 Sp Gr Ur Qn 1.015 Urobilinogen Ur-mCnc 1.0 WBC Est Ur Ql Strip large History Of Immunizations Name Date Admin Mfg Name Mfg Code Trade Name Lot# Route Inj Vis Given Vis Pub CVX Influenza 07/15/2012 [employer] SKB Fluzone [id number] Intramuscular Left Deltoid 07/15/2012 02/09/2012 141 Pneumococcal 07/15/2012 [employer]ck [employer] Co., Inc. MSD Pneumovax 23 [id number] Intramuscular Left Deltoid 07/15/2012 09/11/2011 999 History [...] Pulmonary Disease-Acute Exacerbation Jan 08 2011 10:53AM Chronic Obstructive Pulmonary Disease Mar 24 2011 [...] (prostate specific antigen) Jan 09 2015 1:41PM Payers Insurance Name Company Name Plan Name Plan Number Policy Number Policy Group Number Start Date Medicare Part A Medicare Part A [id number] N/A Medicare Part B Medicare Of [place] [id number] Thursday, 2003 History of Encounters Visit Date Visit Type Provider 09/05/2014 Office visit Ebony Almodovar FUNERAL DIRECTOR'S ASSISTANT 07/03/2014 Office visit Ebony Almodovar FUNERAL DIRECTOR'S ASSISTANT 12/29/2013 Office visit Aleja Newell FUNERAL DIRECTOR'S ASSISTANT 08/17/2013 Office visit Aleja Newell FUNERAL DIRECTOR'S ASSISTANT 06/02/2013 Office visit Aleja Newell FUNERAL DIRECTOR'S ASSISTANT 11/29/2012 Office visit Aleja Newell FUNERAL DIRECTOR'S ASSISTANT 11/29/2012 [facility] Aramis French MD 11/17/2012 Office visit Aleja Newell FUNERAL DIRECTOR'S ASSISTANT 07/15/2012 Office visit Aleja Newell FUNERAL DIRECTOR'S ASSISTANT 12/15/2011 Office visit Aleja Newell FUNERAL DIRECTOR'S ASSISTANT 10/20/2011 Office visit Aleja Newell FUNERAL DIRECTOR'S ASSISTANT 08/29/2011 Office visit Aleja Newell FUNERAL DIRECTOR'S ASSISTANT 03/24/2011 Office visit Aleja Newell FUNERAL DIRECTOR'S ASSISTANT 01/08/2011 Office visit Aleja Newell FUNERAL DIRECTOR'S ASSISTANT 11/08/2010 Office visit Aleja Newell FUNERAL DIRECTOR'S ASSISTANT 08/26/2010 Office visit Aleja Newell FUNERAL DIRECTOR'S ASSISTANT 12/20/2009 Office visit Kareen Benitez MD 08/29/2009 Office visit [facility]
--- OUTSIDE RECORDS SUMMARY | 2018-10-29 06:20 | XMS REPORT ---
Author Author Aleja Newell [facility] Address [address] [place], [place] [address] Care Team Providers Care Divorce Attorney Name Role Phone Aleja Newell PCP Unavailable Allergies and Adverse Reactions Name Reaction Notes PENICILLINS SULFA (SULFONAMIDES) Levaquin sores on tongue Plan of Treatment Planned Activity Comments Planned Date Planned Time Plan/Goal HEPATIC FUNCTION PANEL 07/02/2015 12:00 AM f/u prostate surgery, elevated PSA ELECTROCARDIOGRAM COMPLETE 11/29/2012 12:00 AM MRI JOINT UPR EXTR W/O&W/DYE 12/29/2013 12:00 AM Medications Active Name Start Date Estimated Completion Date SIG Comments ipratropium-albuterol 0.5 mg-3 mg(2.5 mg base)/3 mL inhalation solution for nebulization 08/17/2013 inhale 3 milliliters by nebulization route 4 times per day and as needed, up to 6 doses per day Advair Diskus 250-50 mcg/dose inhalation blister with device 08/04/2014 inhale 1 puff by inhalation route 2 times per day in the morning and evening approximately 12 hours apart Advair Diskus 250-50 mcg/dose inhalation blister with [...] TAKE 1 TABLET BY ORAL ROUTE DAILY prednisone 20 mg oral tablet 07/02/2015 12/18/2015 take 60mg x2 days, then 40mg x2 days, then 20mg x4 days Problem List Description Status Onset Asthma Active Chronic Obstructive Pulmonary Disease Active Hypertension Active Vital Signs Date Time BP-Sys(mm[Hg] BP-Muriel(mm[Hg]) HR(bpm) RR(rpm) Temp WT HT HC BMI BSA BMI Percentile O2 Sat(%) 12/18/2015 8:59:00 AM 132 mmHg 66 mmHg [...] AM COMPLETE CBC W/AUTO DIFF WBC Returned 12/17/2015 12:00 AM COMPREHEN METABOLIC PANEL Returned 12/17/2015 12:00 AM LIPID PANEL Returned 12/17/2015 12:00 AM ASSAY OF PSA TOTAL Returned 12/17/2015 12:00 AM ASSAY OF PSA FREE Returned 12/18/2015 12:00 AM Primitivo Xiong 1 Mg [facility]# [id number] Reviewed 12/18/2015 12:00 AM Depo-Medrol 40mg Reviewed 08/29/2011 12:00 AM THER/PROPH/DIAG INJ SC/IM Reviewed 08/29/2011 12:00 AM Depo-Medrol 80 mg NDC#[id number] Reviewed 10/22/2011 12:00 AM URINALYSIS AUTO W/O SCOPE Reviewed 10/20/2011 12:00 AM URINE CULTURE/COLONY COUNT Returned 12/15/2011 12:00 AM THER/PROPH/DIAG INJ SC/IM Reviewed 12/15/2011 12:00 AM Decadron 1 mg NDC#[id number] (Chad) Reviewed 12/15/2011 12:00 AM Depo-Medrol 80 mg NDC#[id number] Reviewed 07/15/2012 12:00 AM THER/PROPH/DIAG INJ SC/IM Reviewed 07/15/2012 12:00 AM Decadron 1 mg NDC#[id number] (Chad) Reviewed 07/15/2012 12:00 AM Depo-Medrol 80 mg NDC#[id number] Reviewed 07/15/2012 12:00 AM COMPLETE CBC W/AUTO [...] Reviewed 08/26/2010 12:00 AM Decadron 1 mg NDC#[id number] (Chad) Reviewed 08/26/2010 12:00 AM Depo-Medrol 80 mg NDC#[id number]-Carjfxej Reviewed 08/26/2010 12:00 AM THER/PROPH/DIAG INJ SC/IM Reviewed 08/26/2010 12:00 AM Decadron 8 mg NDC#[id number] (Chad) Reviewed 08/26/2010 12:00 AM Depo-Medrol 80 mg NDC#[id number]-Vjvkxors Reviewed 08/29/2009 12:00 AM FLU VACCINE 3 [...] Reviewed 07/03/2014 12:00 AM Depo-Medrol 80 mg [facility]#[id number] Reviewed 09/05/2014 11:17 AM URINALYSIS AUTO W/O SCOPE Reviewed 09/05/2014 12:00 AM URINE CULTURE/COLONY COUNT Returned 01/08/2011 12:00 AM Depo-Medrol 80 mg NDC#[id number] Reviewed 01/08/2011 12:00 AM Decadron 8 mg NDC#[id number] (Chad) Reviewed 01/09/2015 12:00 AM COMPLETE CBC W/AUTO DIFF WBC Returned 01/09/2015 12:00 AM COMPREHEN METABOLIC PANEL Returned 01/09/2015 12:00 AM LIPID PANEL Returned 01/09/2015 12:00 AM ASSAY OF PSA FREE Returned Results Summary Data and Description Results [...] g/dLALBUMIN 3.70 g/dLTOTAL BILI 1.0 mg/dLCALCIUM 9.0 mg/dLeGFR >60 mL/min/1.73m TRIGLYCERIDES 70.0 mg/dLCHOLESTEROL 147.0 mg/dLHDL 36.0 mg/dLLDL (CALC) 97.0 mg/ dLWBC 8.4 RBC 5.23 HGB 14.90 g/dLHCT 45.70 %MCV 87.0 fLMCH 28.50 pgMCHC 32.60 g/ dLRDW CV 14.80 %MPV 10.10 fLPLT 139 %NEUT 74.30 %%LYMP 15.80 %%MONO 6.20 %%EOS 3.30 %%BASO 0.40 %#NEUT 6.26 #LYMP 1.33 #MONO 0.52 #EOS 0.28 #BASO 0.03 PSA TOTAL 7.650 ng/mL 12/18/2015 8:35 AM TRIGLYCERIDES 48.0 mg/dLCHOLESTEROL 135.0 mg/dLHDL 38.0 mg/ dLLDL (CALC) 87.0 mg/dLGLUCOSE 92.0 mg/dLSODIUM 141.0 mmol/LPOTASSIUM 3.90 mmol/ LCHLORIDE 103.0 mmol/LCO2 28.0 mmol/LBUN 10.0 mg/dLCREATININE 0.80 mg/dLSGOT/ AST 19.0 IU/LSGPT/ALT 16.0 IU/LALK PHOS 106.0 IU/LTOTAL PROTEIN 7.30 g/ dLALBUMIN 3.60 g/dLTOTAL BILI 0.70 mg/dLCALCIUM 9.0 mg/dLeGFR >60 mL/min/1.73m PSA TOTAL 10.870 ng/mLWBC 9.5 RBC 5.29 HGB 14.60 g/dLHCT 45.80 %MCV 87.0 fLMCH 27.60 pgMCHC 31.90 g/dLRDW CV 13.90 %MPV 9.70 fLPLT 183 %NEUT 71.10 %%LYMP 12.70 %%MONO 7.40 %%EOS 7.70 %%BASO 0.80 %#NEUT 6.75 #LYMP 1.21 #MONO 0.70 #EOS 0.73 #BASO 0.08 History Of Immunizations Name Date Admin Mfg Name Mfg Code Trade Name Lot# Route Inj Vis Given Vis Pub CVX Influenza 07/15/2012 GlaxXiao[employer] SKB Fluzone [id number] Intramuscular Left Deltoid 07/15/2012 02/09/2012 141 X 07/15/2012 Merck & Co., Inc. MSD Pneumovax 23 [id number] Intramuscular Left Deltoid 07/15/2012 09/11/2011 999 History [...] acute exacerbation Dec 18 2015 9: 00AM Payers Insurance Name Company Name Plan Name Plan Number Policy Number Policy Group Number Start Date Medicare Part A Medicare RHC [id number] N/A Medicare Part B Medicare Of [place] [id number] Thursday, 2003 Medicare Part A Medicare Part A [id number] N/A Medicare Part A Medicare - Lab/Xray [id number] N/A History of Encounters Visit Date Visit Type Provider 12/18/2015 Office visit Aleja Newell COPYWRITING INTERN 07/02/2015 Office visit Aleja Newell COPYWRITING INTERN 09/05/2014 Office visit Ebony Almodovar COPYWRITING INTERN 07/03/2014 Office visit Ebony Almodovar COPYWRITING INTERN 12/29/2013 Office visit Aleja Newell COPYWRITING INTERN 08/17/2013 Office visit Aleja Newell COPYWRITING INTERN 06/02/2013 Office visit Aleja Newell COPYWRITING INTERN 11/29/2012 [facility] Pedro French MD 11/29/2012 Office visit Aleja Newell COPYWRITING INTERN 11/17/2012 Office visit Aleja Newell COPYWRITING INTERN 07/15/2012 Office visit Aleja Newell COPYWRITING INTERN 12/15/2011 Office visit Aleja Newell COPYWRITING INTERN 10/20/2011 Office visit Aleja Newell COPYWRITING INTERN 08/29/2011 Office visit Aleja Newell COPYWRITING INTERN 03/24/2011 Office visit Aleja Newell COPYWRITING INTERN 01/08/2011 Office visit Aleja Newell COPYWRITING INTERN 11/08/2010 Office visit Aleja Newell COPYWRITING INTERN 08/26/2010 Office visit Aleja Newell COPYWRITING INTERN 12/20/2009 Office visit Kareen Benitez MD 08/29/2009 Office visit [facility]
--- OUTSIDE RECORDS SUMMARY | 2018-10-29 06:21 | XMS REPORT ---
Author Author Aleja Newell [facility] Address [address] [place], [place] [id number] Care Team Providers Care Lining Setter Name Role Phone Aleja Newell PCP Unavailable [...] mg base)/3 mL inhalation solution for nebulization 06/21/2015 INHALE 3 MILLILITERS BY NEBULIZATION ROUTE 4 TIMES PER DAY AND NEEDED, UP TO 6 DOSES PER DAY prednisone 20 mg oral tablet 07/02/2015 take 60mg x2 days, then 40mg x2 days, then 20mg x4 days Name Start Date Expiration Date SIG [...] TAKE 1 TABLET BY ORAL ROUTE DAILY Problem List Description Status Onset Asthma Active Chronic Obstructive Pulmonary Disease Active Hypertension Active Vital Signs Date Time BP-Sys(mm[Hg] BP-Muriel(mm[Hg]) HR(bpm) RR(rpm) Temp WT HT HC BMI BSA BMI Percentile O2 Sat(%) 07/02/2015 2:12:00 PM 134 mmHg 68 mmHg [...] rpm 101.4 F 207.125 lbs 72 in 28.0909 kg/m 2.1847 m 91 % 08/17/2013 10:42:00 AM [...] Reviewed 08/29/2011 12:00 AM Depo-Medrol 80 mg NDC#[id number] Reviewed 10/22/2011 12:00 AM URINALYSIS AUTO W/O SCOPE Reviewed 10/20/2011 12:00 AM URINE CULTURE/COLONY COUNT Returned 12/15/2011 12:00 AM THER/PROPH/DIAG INJ SC/IM Reviewed 12/15/2011 12:00 AM Decadron 1 mg NDC#[id number] (Chad) Reviewed 12/15/2011 12:00 AM Depo-Medrol 80 mg NDC#[id number] Reviewed 07/15/2012 12:00 AM THER/PROPH/DIAG INJ SC/IM Reviewed 07/15/2012 12:00 AM Decadron 1 mg NDC#[id number] (Chad) Reviewed 07/15/2012 12:00 AM Depo-Medrol 80 mg NDC#[id number] Reviewed 07/15/2012 12:00 AM COMPLETE CBC W/AUTO [...] Reviewed 08/26/2010 12:00 AM Decadron 1 mg NDC#[id number] (Chad) Reviewed 08/26/2010 12:00 AM Depo-Medrol 80 mg NDC#[id number]-Xddwizvn Reviewed 08/26/2010 12:00 AM THER/PROPH/DIAG INJ SC/IM Reviewed 08/26/2010 12:00 AM Decadron 8 mg NDC#[id number] (Chad) Reviewed 08/26/2010 12:00 AM Depo-Medrol 80 mg NDC#[id number] Reviewed 08/29/2009 12:00 AM FLU VACCINE 3 [...] Reviewed 07/03/2014 12:00 AM Depo-Medrol 80 mg [facility]#[id number] Reviewed 09/05/2014 11:17 AM URINALYSIS AUTO W/O SCOPE Reviewed 09/05/2014 12:00 AM URINE CULTURE/COLONY COUNT Returned 01/08/2011 12:00 AM Depo-Medrol 80 mg [facility]#[id number] Reviewed 01/08/2011 12:00 AM Decadron 8 mg [facility]#[id number] (Chad) Reviewed 01/09/2015 12:00 AM COMPLETE CBC [...] 0.28 #BASO 0.03 PSA TOTAL 7.650 ng/mL History Of Immunizations Name Date Admin Mfg Name Mfg Code Trade Name Lot# Route Inj Vis Given Vis Pub CVX Influenza 07/15/2012 Glaxo[employer] SKB Fluzone [id number] Intramuscular Left Deltoid 07/15/2012 02/09/2012 141 Pneumococcal 07/15/2012 Merck & Co., Inc. MSD Pneumovax 23 [id number] Intramuscular Left Deltoid 07/15/2012 09/11/2011 999 History [...] 2:14PM Elevated PSA Jul 02 2015 2:14PM Payers Insurance Name Company Name Plan Name Plan Number Policy Number Policy Group Number Start Date Medicare Part A Medicare Part A [id number] N/A Medicare Part B Medicare Of [place] [id number] Cristian, 2003 History of Encounters Visit Date Visit Type Provider 07/02/2015 Office visit Aleja Reece CIGAR HEAD PERFORATOR 09/05/2014 Office visit Ebony Almodovar CIGAR HEAD PERFORATOR 07/03/2014 Office visit Ebony Almodovar CIGAR HEAD PERFORATOR 12/29/2013 Office visit Aleja Newell CIGAR HEAD PERFORATOR 08/17/2013 Office visit Aleja Reece CIGAR HEAD PERFORATOR 06/02/2013 Office visit Aleja Reece CIGAR HEAD PERFORATOR 11/29/2012 [facility] Aramis French MD 11/29/2012 Office visit Aleja Newell CIGAR HEAD PERFORATOR 11/17/2012 Office visit Aleja Newell CIGAR HEAD PERFORATOR 07/15/2012 Office visit Aleja Reece CIGAR HEAD PERFORATOR 12/15/2011 Office visit Aleja Reece CIGAR HEAD PERFORATOR 10/20/2011 Office visit Aleja Reece CIGAR HEAD PERFORATOR 08/29/2011 Office visit Aleja Newell CIGAR HEAD PERFORATOR 03/24/2011 Office visit Aleja Newell CIGAR HEAD PERFORATOR 01/08/2011 Office visit Aleja Newell CIGAR HEAD PERFORATOR 11/08/2010 Office visit Aleja Reece CIGAR HEAD PERFORATOR 08/26/2010 Office visit Aleja Newell CIGAR HEAD PERFORATOR 12/20/2009 Office visit Kareen Benitez MD 08/29/2009 Office visit [place]
--- OUTSIDE RECORDS SUMMARY | 2018-10-29 06:21 | XMS REPORT ---
Author Author Aleja Newell [facility] Address [address] [place], [place] [id number] Care Team Providers Care Soap Inspector Name Role Phone Aleja Newell PCP Unavailable Aleja Newell PreferredProvider Unavailable Allergies and Adverse Reactions Name Reaction Notes PENICILLINS SULFA (SULFONAMIDES) Levaquin sores on tongue Plan of Treatment Planned Activity Comments Planned Date Planned Time Plan/Goal Liver function panel 07/02/2015 12:00 AM f/u prostate surgery, elevated PSA EKG (12-lead electrocardiogram) 11/29/2012 12:00 AM MRI of shoulder, with and [...] Diskus 250-50 mcg/dose inhalation blister with device 07/09/2016 INHALE 1 PUFF BY INHALATION ROUTE 2 TIMES PER DAY IN THE MORNING AND EVENING APPROXIMATELY 12 HOURS APART Breo Ellipta 200-25 mcg/dose inhalation blister with device 08/12/2016 inhale 1 puff by inhalation route once daily at the same time each day Incruse Ellipta 62.5 mcg/actuation inhalation blister with device 08/12/2016 inhale 1 puff (62.5 mcg) by inhalation route once daily at the same time each day doxycycline monohydrate 100 mg oral tablet 08/12/2016 08/19/2016 take 1 tablet (100 mg) by oral route 2 times per day for 7 days Name Start Date [...] HC BMI BSA BMI Percentile O2 Sat(%) 08/12/2016 1:28:00 PM 132 mmHg 72 mmHg 84 bpm 18 rpm 97.5 F 208.25 lbs 72 in 28.24 kg/m2 2.19 m2 97 % 12/18/2015 8:59:00 AM 132 mmHg 66 mmHg 78 bpm 18 rpm 97.5 F 194.25 lbs 72 in 26.3448 kg/m 2.1157 m 95 % 07/02/2015 2:12:00 PM 134 mmHg [...] OF PSA FREE Returned 12/18/2015 12:00 AM Decadron, Per 1 Mg [facility]# [address]-28 Reviewed 12/18/2015 12:00 AM Depo-Medrol 40mg Reviewed 08/29/2011 12:00 AM THER/PROPH/DIAG INJ SC/IM Reviewed 08/29/2011 12:00 AM Depo-Medrol 80 mg ND#[id number]-Tsiiszwx Reviewed 10/22/2011 12:00 AM URINALYSIS AUTO W/O SCOPE Reviewed 10/20/2011 12:00 AM URINE CULTURE/COLONY COUNT Reviewed 08/12/2016 12:00 AM Decadron, Per 1 Mg [facility]# [address]-04 Reviewed 08/12/2016 12:00 AM Depo-Medrol 40mg Injection Reviewed 08/12/2016 12:00 AM ELECTROCARDIOGRAM TRACING Reviewed 12/15/2011 12:00 AM THER/PROPH/DIAG INJ SC/IM Reviewed 12/15/2011 12:00 AM Decadron 1 mg NDC#[id number] (Chad) Reviewed 12/15/2011 12:00 AM Depo-Medrol 80 mg NDC#[id number]-Nerozuky Reviewed 07/15/2012 12:00 AM THER/PROPH/DIAG INJ SC/IM Reviewed 07/15/2012 12:00 AM Decadron 1 mg NDC#[id number] (Chad) Reviewed 07/15/2012 12:00 AM Depo-Medrol 80 mg NDC#[id number]-Mrbikmnp Reviewed 07/15/2012 12:00 AM COMPLETE CBC W/AUTO [...] Reviewed 08/26/2010 12:00 AM Decadron 1 mg NDC#[id number] (Chad) Reviewed 08/26/2010 12:00 AM Depo-Medrol 80 mg NDC#[id number]-Rucduvqk Reviewed 08/26/2010 12:00 AM THER/PROPH/DIAG INJ SC/IM Reviewed 08/26/2010 12:00 AM Decadron 8 mg NDC#[id number] (Chad) Reviewed 08/26/2010 12:00 AM Depo-Medrol 80 mg NDC#[id number]-Cvdbxmex Reviewed 08/29/2009 12:00 AM FLU VACCINE 3 [...] Reviewed 07/03/2014 12:00 AM Depo-Medrol 80 mg [facility]#[address]-12 Reviewed 09/05/2014 11:17 AM URINALYSIS AUTO W/O SCOPE Reviewed 09/05/2014 12:00 AM URINE CULTURE/COLONY COUNT Reviewed 01/08/2011 12:00 AM Depo-Medrol 80 mg [facility]#[id number]-Nhawfzag Reviewed 01/08/2011 12:00 AM Decadron 8 mg [facility]#[id number] (Chad) Reviewed 01/09/2015 12:00 AM COMPLETE CBC W/AUTO DIFF WBC Reviewed 01/09/2015 12:00 AM COMPREHEN METABOLIC PANEL Reviewed 01/09/2015 12:00 AM LIPID PANEL Reviewed 01/09/2015 12:00 AM ASSAY OF PSA FREE Reviewed Results Summary Data and Description Results 08/29/2009 [...] >60 09/24/2010 8:50 AM PSA TOTAL 8.90 ng/mLPSA [...] 0.73 #BASO 0.08 MANUAL DIFF NOT IND History Of Immunizations Name Date Admin Mfg Name Mfg Code Trade Name Lot# Route Inj Vis Given Vis Pub CVX Influenza 07/15/2012 GlaxoSmLiveVoxKline SKB Fluzone [id number] Intramuscular Left Deltoid 07/15/2012 02/09/2012 141 X 07/15/2012 Merck & Co., Inc. MSD Pneumovax 23 [id number] Intramuscular Left Deltoid 07/15/2012 09/11/2011 999 History [...] acute exacerbation Aug 12 2016 1: 30PM Payers Insurance Name Company Name Plan Name Plan Number Policy Number Policy Group Number Start Date Medicare Part A Medicare RHC [id number] N/A Medicare Part B Medicare Of [place] [id number] Thursday, 2003 Medicare Part A Medicare Part A [id number] N/A Medicare Part A Medicare - Lab/Xray [id number] N/A History of Encounters Visit Date Visit Type Provider 08/12/2016 Office visit Aleja Newell SUPPORTABILITY ENGINEER 12/18/2015 Office visit Aleja Newell SUPPORTABILITY ENGINEER 07/02/2015 Office visit Aleja Newell SUPPORTABILITY ENGINEER 09/05/2014 Office visit Ebony Almodovar SUPPORTABILITY ENGINEER 07/03/2014 Office visit Ebony Almodovar SUPPORTABILITY ENGINEER 12/29/2013 Office visit Aleja Newell SUPPORTABILITY ENGINEER 08/17/2013 Office visit Aleja Newell SUPPORTABILITY ENGINEER 06/02/2013 Office visit Aleja Newell SUPPORTABILITY ENGINEER 11/29/2012 [facility] Aramis French MD 11/29/2012 Office visit Aleja Newell SUPPORTABILITY ENGINEER 11/17/2012 Office visit Aleja Newell SUPPORTABILITY ENGINEER 07/15/2012 Office visit Aleja Newell SUPPORTABILITY ENGINEER 12/15/2011 Office visit Aleja Newell SUPPORTABILITY ENGINEER 10/20/2011 Office visit Aleja Newell SUPPORTABILITY ENGINEER 08/29/2011 Office visit Aleja Newell SUPPORTABILITY ENGINEER 03/24/2011 Office visit Aleja Newell SUPPORTABILITY ENGINEER 01/08/2011 Office visit Aleja Newell SUPPORTABILITY ENGINEER 11/08/2010 Office visit Aleja Newell SUPPORTABILITY ENGINEER 08/26/2010 Office visit Aleja Newell SUPPORTABILITY ENGINEER 12/20/2009 Office visit Kareen Benitez MD 08/29/2009 Office visit [facility]
--- OUTSIDE RECORDS SUMMARY | 2018-10-29 06:22 | XMS REPORT ---
Author Author Ebony Almodovar [facility] Address [address] [place], [place] [address] Care Team Providers Care General Duty Nurse Name Role Phone Ebony Almodovar PCP Unavailable Allergies and Adverse Reactions Name Reaction Notes PENICILLINS SULFA (SULFONAMIDES) Levaquin sores on tongue Plan of Treatment Planned Activity Comments Planned Date Planned Time Plan/Goal ELECTROCARDIOGRAM COMPLETE 11/29/2012 12:00 AM MRI JOINT UPR EXTR W/O&W/DYE 12/29/2013 12:00 AM Medications Active Name Start Date Estimated Completion Date SIG Comments ipratropium-albuterol 0.5 mg-3 mg(2.5 mg base)/3 mL inhalation solution for nebulization 08/17/2013 inhale 3 milliliters by nebulization route 4 times per day and as needed, up to 6 doses per day hydrochlorothiazide 25 mg oral tablet 05/01/2014 TAKE 1 TABLET BY ORAL ROUTE [...] Reviewed 08/29/2011 12:00 AM Depo-Medrol 80 mg NDC#[id number]-Tiilcalj Reviewed 10/22/2011 12:00 AM URINALYSIS AUTO W/O SCOPE Reviewed 10/20/2011 12:00 AM URINE CULTURE/COLONY COUNT Returned 12/15/2011 12:00 AM THER/PROPH/DIAG INJ SC/IM Reviewed 12/15/2011 12:00 AM Decadron 1 mg NDC#[id number] (Chad) Reviewed 12/15/2011 12:00 AM Depo-Medrol 80 mg NDC#[id number]-Xvkfvtqx Reviewed 07/15/2012 12:00 AM THER/PROPH/DIAG INJ SC/IM Reviewed 07/15/2012 12:00 AM Decadron 1 mg NDC#[id number] (Chad) Reviewed 07/15/2012 12:00 AM Depo-Medrol 80 mg NDC#[id number]-Aydbtjec Reviewed 07/15/2012 12:00 AM COMPLETE CBC W/AUTO [...] Reviewed 08/26/2010 12:00 AM Decadron 1 mg NDC#67168124436 (Chad) Reviewed 08/26/2010 12:00 AM Depo-Medrol 80 mg NDC#[id number]-Tzgtcrix Reviewed 08/26/2010 12:00 AM THER/PROPH/DIAG INJ SC/IM Reviewed 08/26/2010 12:00 AM Decadron 8 mg NDC#[id number] (Chad) Reviewed 08/26/2010 12:00 AM Depo-Medrol 80 mg NDC#[id number]-Dgdbcjuf Reviewed 08/29/2009 12:00 AM FLU VACCINE 3 [...] Reviewed 07/03/2014 12:00 AM Depo-Medrol 80 mg N[facility]#[address]-77 Reviewed 09/05/2014 11:17 AM URINALYSIS AUTO W/O SCOPE Reviewed 09/05/2014 12:00 AM URINE CULTURE/COLONY COUNT Returned 01/08/2011 12:00 AM Depo-Medrol 80 mg [facility]#[id number]-Wjhktbxt Reviewed 01/08/2011 12:00 AM Decadron 8 mg [facility]#[id number] (Chad) Reviewed 01/09/2015 12:00 AM COMPLETE CBC [...] Vis Given Vis Pub CVX Influenza 07/15/2012 GlaxFiverr.comine SKB Fluzone [id number] Intramuscular Left Deltoid 07/15/2012 02/09/2012 141 Pneumococcal 07/15/2012 Merck & Co., Inc. MSD Pneumovax 23 [id number] Intramuscular Left Deltoid 07/15/2012 09/11/2011 999 History [...] Date Medicare Part A Medicare Part A [id number] N/A Medicare Part B Medicare Of [place] [id number] Thursday, 2003 History of Encounters Visit Date Visit Type Provider 09/05/2014 Office visit Ebony Almodovar BALL MILL OPERATOR 07/03/2014 Office visit Ebony Almodovar BALL MILL OPERATOR 12/29/2013 Office visit Aleja Newell BALL MILL OPERATOR 08/17/2013 Office visit Aleja Newell BALL MILL OPERATOR 06/02/2013 Office visit Aleja Newell BALL MILL OPERATOR 11/29/2012 [facility] Aramis French MD 11/29/2012 Office visit Aleja Newell BALL MILL OPERATOR 11/17/2012 Office visit Aleja Newell BALL MILL OPERATOR 07/15/2012 Office visit Aleja Newell BALL MILL OPERATOR 12/15/2011 Office visit Aleja Newell BALL MILL OPERATOR 10/20/2011 Office visit Aleja Newell BALL MILL OPERATOR 08/29/2011 Office visit Aleja Newell BALL MILL OPERATOR 03/24/2011 Office visit Aleja Newell BALL MILL OPERATOR 01/08/2011 Office visit Aleja Newell BALL MILL OPERATOR 11/08/2010 Office visit Aleja Newell APRN 08/26/2010 Office visit Aleja Newell BALL MILL OPERATOR 12/20/2009 Office visit Kareen Benitez MD 08/29/2009 Office visit [facility]
--- OUTSIDE RECORDS SUMMARY | 2018-10-29 06:23 | XMS REPORT ---
Author Author Aleja Newell [facility] Address [address] [place], [place] [address] Care Team Providers Care Filtration Supervisor Name Role Phone Aleja Newell PCP Unavailable Aleja Newell PreferredProvider Unavailable Allergies and Adverse Reactions Name Reaction Notes PENICILLINS SULFA (SULFONAMIDES) prednisone Blisters in Mouth, upset stomach dirrhea Plan of Treatment Planned Activity Comments Planned Date Planned Time Plan/Goal Liver function panel 07/02/2015 12:00 AM f/u prostate surgery, elevated PSA CBC With Auto Differential 03/09/2017 12:00 AM CMP (comprehensive metabolic panel) 03/09/2017 12:00 AM .Lipid Panel 03/09/2017 12:00 AM CX CHEST 2 VIEWS 03/09/2017 12:00 AM TSH 03/09/2017 12:00 AM MRI of shoulder, with and [...] BY INHALATION ROUTE EVERY 4-6 HOURS NEEDED Levaquin 500 mg oral tablet 03/09/2017 03/16/2017 take 1 tablet (500 mg) by [...] HC BMI BSA BMI Percentile O2 Sat(%) 03/09/2017 8:58:00 AM 148 mmHg 84 mmHg [...] 12:00 AM Decadron, Per 1 Mg NDC# [address]-91 Reviewed 12/18/2015 12:00 AM Depo-Medrol 40mg Reviewed 08/29/2011 12:00 AM THER/PROPH/DIAG INJ SC/IM Reviewed 08/29/2011 12:00 AM Depo-Medrol 80 mg NDC#[id number]-Qmukrneo Reviewed 08/29/2011 12:00 AM Depo-Medrol 40 mg NDC#[id number] Reviewed 10/22/2011 12:00 AM URINALYSIS AUTO W/O SCOPE Reviewed 10/20/2011 12:00 AM URINE CULTURE/COLONY COUNT Reviewed 08/12/2016 12:00 AM Decadron, Per 1 Mg NDC# [address]-64 Reviewed 08/12/2016 12:00 AM Depo-Medrol 40mg Injection Reviewed 08/12/2016 12:00 AM ELECTROCARDIOGRAM TRACING Reviewed 12/15/2011 12:00 AM THER/PROPH/DIAG INJ SC/IM Reviewed 12/15/2011 12:00 AM Decadron 1 mg NDC#[id number] (Chad) Reviewed 12/15/2011 12:00 AM Depo-Medrol 80 mg NDC#[id number]-Wzftsuqr Reviewed 11/18/2016 12:00 AM Decadron, Per 1 Mg N[facility]# [address]-94 Reviewed 11/18/2016 12:00 AM Depo-Medrol 40mg Injection Reviewed 03/09/2017 12:00 AM Decadron, Per 1 Mg N[facility]# [address]-37 Reviewed 03/09/2017 12:00 AM Depo-Medrol 40mg Injection Reviewed 07/15/2012 12:00 AM THER/PROPH/DIAG INJ SC/IM Reviewed 07/15/2012 12:00 AM Decadron 1 mg NDC#52615566019 (Chad) Reviewed 07/15/2012 12:00 AM Depo-Medrol 80 mg NDC#[id number]-Pjgmaztg Reviewed 07/15/2012 12:00 AM COMPLETE CBC W/AUTO [...] Reviewed 08/26/2010 12:00 AM Decadron 1 mg NDC#05872707646 (Chad) Reviewed 08/26/2010 12:00 AM Depo-Medrol 80 mg NDC#[id number]-Oamhbyyv Reviewed 08/26/2010 12:00 AM THER/PROPH/DIAG INJ SC/IM Reviewed 08/26/2010 12:00 AM Decadron 8 mg NDC#[id number] (Chad) Reviewed 08/26/2010 12:00 AM Depo-Medrol 80 mg NDC#[id number]-Uvsrnnic Reviewed 08/29/2009 12:00 AM FLU VACCINE 3 [...] Reviewed 07/03/2014 12:00 AM Depo-Medrol 80 mg [facility]#[address]-38 Reviewed 09/05/2014 11:17 AM URINALYSIS AUTO W/O SCOPE Reviewed 09/05/2014 12:00 AM URINE CULTURE/COLONY COUNT Reviewed 01/08/2011 12:00 AM Depo-Medrol 80 mg [facility]#[id number]-Hwzkeecz Reviewed 01/08/2011 12:00 AM Decadron 8 mg [facility]#[id number] (Chad) Reviewed 01/09/2015 12:00 AM COMPLETE CBC [...] Vis Given Vis Pub CVX Influenza 07/15/2012 GlaxoSmQriketine SKB Fluzone [id number] Intramuscular Left Deltoid 07/15/2012 02/09/2012 141 X 07/15/2012 Merck & Co., Inc. MSD Pneumovax 23 [id number] Intramuscular Left Deltoid 07/15/2012 09/11/2011 999 History [...] 00AM Chronic fatigue Mar 09 2017 9:00AM Payers Insurance Name Company Name Plan Name Plan Number Policy Number Policy Group Number Start Date Medicare RHC Medicare RHC [id number] N/A Medicare Part B Medicare Of [place] [id number] Thursday, 2003 Medicare Part A Medicare Part A [id number] N/A Medicare Part A Medicare - Lab/Xray [id number] N/A History of Encounters Visit Date Visit Type Provider 03/09/2017 Office visit Aleja Newell SEO ASSISTANT 11/18/2016 Office visit Aleja Newell SEO ASSISTANT 08/12/2016 Office visit Aleja Newell SEO ASSISTANT 08/12/2016 Laboratory Aramis French MD 12/18/2015 Office visit Aleja Newell SEO ASSISTANT 07/02/2015 Office visit Aleja Newell SEO ASSISTANT 09/05/2014 Office visit Ebony Almodovar SEO ASSISTANT 07/03/2014 Office visit Ebony Almodovar SEO ASSISTANT 12/29/2013 Office visit Aleja Newell SEO ASSISTANT 08/17/2013 Office visit Aleja Newell SEO ASSISTANT 06/02/2013 Office visit Aleja Newell SEO ASSISTANT 11/29/2012 Hospital Aramis French MD 11/29/2012 Office visit Aleja Newell SEO ASSISTANT 11/17/2012 Office visit Aleja Newell SEO ASSISTANT 07/15/2012 Office visit Aleja Newell SEO ASSISTANT 12/15/2011 Office visit Aleja Newell SEO ASSISTANT 10/20/2011 Office visit Aleja Newell SEO ASSISTANT 08/29/2011 Office visit Aleja Newell SEO ASSISTANT 03/24/2011 Office visit lAeja Newell SEO ASSISTANT 01/08/2011 Office visit Aleja Newell SEO ASSISTANT 11/08/2010 Office visit Aleja Newell SEO ASSISTANT 08/26/2010 Office visit Aleja Newell SEO ASSISTANT 12/20/2009 Office visit Kareen Benitez MD 08/29/2009 Office visit [facility]
--- OUTSIDE RECORDS SUMMARY | 2018-10-29 06:24 | XMS REPORT ---
Author Author Aleja Newell [facility] Address [address] [place], [place] [address] Care Team Providers Care Solar Photovoltaic Electrician Name Role Phone Aleja Newell PCP Unavailable Aleja Newell PreferredProvider Unavailable Allergies and Adverse Reactions Name Reaction Notes PENICILLINS SULFA (SULFONAMIDES) Levaquin sores on tongue Plan of Treatment Planned Activity Comments Planned Date Planned Time Plan/Goal Liver function panel 07/02/2015 12:00 AM f/u prostate surgery, elevated PSA EKG. 08/12/2016 12:00 AM EKG (12-lead electrocardiogram) 11/29/2012 12:00 AM MRI [...] 12/18/2015 12:00 AM Decadron, Per 1 Mg [facility]# [address]-46 Reviewed 12/18/2015 12:00 AM Depo-Medrol 40mg Reviewed 08/29/2011 12:00 AM THER/PROPH/DIAG INJ SC/IM Reviewed 08/29/2011 12:00 AM Depo-Medrol 80 mg [facility]#[id number]-Ftdjyyjj Reviewed 10/22/2011 12:00 AM URINALYSIS AUTO W/O SCOPE Reviewed 10/20/2011 12:00 AM URINE CULTURE/COLONY COUNT Reviewed 08/12/2016 12:00 AM Decadron, Per 1 Mg [facility]# [address]-09 Reviewed 08/12/2016 12:00 AM Depo-Medrol 40mg Injection Reviewed 12/15/2011 12:00 AM THER/PROPH/DIAG INJ SC/IM Reviewed 12/15/2011 12:00 AM Decadron 1 mg N[facility]#[id number] (Chad) Reviewed 12/15/2011 12:00 AM Depo-Medrol 80 mg [facility]#[id number]-Flcoivmk Reviewed 07/15/2012 12:00 AM THER/PROPH/DIAG INJ SC/IM Reviewed 07/15/2012 12:00 AM Decadron 1 mg [facility]#[id number] (Chad) Reviewed 07/15/2012 12:00 AM Depo-Medrol 80 mg N[facility]#[id number]-Xayymios Reviewed 07/15/2012 12:00 AM COMPLETE CBC W/AUTO [...] Reviewed 08/26/2010 12:00 AM Decadron 1 mg [facility]#06144475289 (Chad) Reviewed 08/26/2010 12:00 AM Depo-Medrol 80 mg N[facility]#[id number]-Twxvbkrg Reviewed 08/26/2010 12:00 AM THER/PROPH/DIAG INJ SC/IM Reviewed 08/26/2010 12:00 AM Decadron 8 mg [facility]#[id number] (Chad) Reviewed 08/26/2010 12:00 AM Depo-Medrol 80 mg N[facility]#[id number]-Drboyyjo Reviewed 08/29/2009 12:00 AM FLU VACCINE 3 [...] Reviewed 07/03/2014 12:00 AM Depo-Medrol 80 mg [facility]#[address]-06 Reviewed 09/05/2014 11:17 AM URINALYSIS AUTO W/O SCOPE Reviewed 09/05/2014 12:00 AM URINE CULTURE/COLONY COUNT Reviewed 01/08/2011 12:00 AM Depo-Medrol 80 mg [facility]#[id number]-Jswdayfs Reviewed 01/08/2011 12:00 AM Decadron 8 mg [facility]#[id number] (Chad) Reviewed 01/09/2015 12:00 AM COMPLETE CBC [...] Vis Given Vis Pub CVX Influenza 07/15/2012 Kochzauberine SKB Fluzone [id number] Intramuscular Left Deltoid 07/15/2012 02/09/2012 141 X 07/15/2012 Merck & Co., Inc. MSD Pneumovax 23 [id number] Intramuscular Left Deltoid 07/15/2012 09/11/2011 999 History [...] Irregular heart rhythm Aug 12 2016 1:30PM Payers Insurance Name Company Name Plan Name Plan Number Policy Number Policy Group Number Start Date Medicare Part A Medicare RHC [id number] N/A Medicare Part B Medicare [place] [id number] Thursday, 2003 Medicare Part A Medicare Part A [id number] N/A Medicare Part A Medicare - Lab/Xray [id number] N/A History of Encounters Visit Date Visit Type Provider 08/12/2016 Office visit Aleja Newell CHEMICAL RESEARCH WORKER 12/18/2015 Office visit Aleja Walker CHEMICAL RESEARCH WORKER 07/02/2015 Office visit Aleja Newell CHEMICAL RESEARCH WORKER 09/05/2014 Office visit Ebony Almodovar CHEMICAL RESEARCH WORKER 07/03/2014 Office visit Ebony Almodovar CHEMICAL RESEARCH WORKER 12/29/2013 Office visit Aleja Newell CHEMICAL RESEARCH WORKER 08/17/2013 Office visit Aleja Walker CHEMICAL RESEARCH WORKER 06/02/2013 Office visit Aleja Newell CHEMICAL RESEARCH WORKER 11/29/2012 [facility] Aramis French MD 11/29/2012 Office visit Aleja Newell CHEMICAL RESEARCH WORKER 11/17/2012 Office visit Aleja Newell CHEMICAL RESEARCH WORKER 07/15/2012 Office visit Aleja Walker CHEMICAL RESEARCH WORKER 12/15/2011 Office visit Aleja Newell CHEMICAL RESEARCH WORKER 10/20/2011 Office visit Aleja Walker CHEMICAL RESEARCH WORKER 08/29/2011 Office visit Aleja Walker CHEMICAL RESEARCH WORKER 03/24/2011 Office visit Aleja Walker CHEMICAL RESEARCH WORKER 01/08/2011 Office visit Aleja Walker CHEMICAL RESEARCH WORKER 11/08/2010 Office visit Aleja Walker CHEMICAL RESEARCH WORKER 08/26/2010 Office visit Aleja Newell CHEMICAL RESEARCH WORKER 12/20/2009 Office visit Kareen Benitez MD 08/29/2009 Office visit [facility]
--- OUTSIDE RECORDS SUMMARY | 2018-10-29 06:25 | XMS REPORT ---
Author Author Ebony Almodovar [facility] Address [address] [place], [place] [id number] Care Team Providers Care Photographic Equipment Mechanic Name Role Phone Ebony Almodovar PCP Unavailable [...] Reviewed 08/29/2011 12:00 AM Depo-Medrol 80 mg NDC#[id number]-Mponeiuu Reviewed 10/22/2011 12:00 AM URINALYSIS AUTO W/O SCOPE Reviewed 10/20/2011 12:00 AM URINE CULTURE/COLONY COUNT Returned 12/15/2011 12:00 AM THER/PROPH/DIAG INJ SC/IM Reviewed 12/15/2011 12:00 AM Decadron 1 mg N[facility]#[id number] (Chad) Reviewed 12/15/2011 12:00 AM Depo-Medrol 80 mg N[facility]#[id number]-Vpsdrsvs Reviewed 07/15/2012 12:00 AM THER/PROPH/DIAG INJ SC/IM Reviewed 07/15/2012 12:00 AM Decadron 1 mg N[facility]#[id number] (Chad) Reviewed 07/15/2012 12:00 AM Depo-Medrol 80 mg NDC#[id number]-Tkkptvla Reviewed 07/15/2012 12:00 AM COMPLETE CBC W/AUTO [...] Reviewed 08/26/2010 12:00 AM Decadron 1 mg N[facility]#85496123785 (Chad) Reviewed 08/26/2010 12:00 AM Depo-Medrol 80 mg N[facility]#[id number]-Nogptisa Reviewed 08/26/2010 12:00 AM THER/PROPH/DIAG INJ SC/IM Reviewed 08/26/2010 12:00 AM Decadron 8 mg N[facility]#[id number] (Chad) Reviewed 08/26/2010 12:00 AM Depo-Medrol 80 mg N[facility]#[id number]-Fikysgje Reviewed 08/29/2009 12:00 AM FLU VACCINE 3 [...] Reviewed 07/03/2014 12:00 AM Depo-Medrol 80 mg [facility]#[address]-80 Reviewed 09/05/2014 11:17 AM URINALYSIS AUTO W/O SCOPE Reviewed 09/05/2014 12:00 AM URINE CULTURE/COLONY COUNT Returned 01/08/2011 12:00 AM Depo-Medrol 80 mg [facility]#[id number]-Gsnrerro Reviewed 01/08/2011 12:00 AM Decadron 8 mg [facility]#[id number] (Chad) Reviewed 01/09/2015 12:00 AM COMPLETE CBC [...] Vis Given Vis Pub CVX Influenza 07/15/2012 GlaxVoodooVoxine SKB Fluzone [id number] Intramuscular Left Deltoid 07/15/2012 02/09/2012 141 Pneumococcal 07/15/2012 Merck & Co., Inc. MSD Pneumovax 23 [id number] Intramuscular Left Deltoid 07/15/2012 09/11/2011 999 History [...] Date Medicare Part A Medicare Part A [id number] N/A Medicare Part B Medicare Of [place] [id number] Thursday, 2003 History of Encounters Visit Date Visit Type Provider 09/05/2014 Office visit Ebony Almodovar RETENTION REPRESENTATIVE 07/03/2014 Office visit Ebony Almodovar RETENTION REPRESENTATIVE 12/29/2013 Office visit Aleja Newell RETENTION REPRESENTATIVE 08/17/2013 Office visit Aleja Newell RETENTION REPRESENTATIVE 06/02/2013 Office visit Aleja Newell RETENTION REPRESENTATIVE 11/29/2012 [facility] Aramis French MD 11/29/2012 Office visit Aleja Newell RETENTION REPRESENTATIVE 11/17/2012 Office visit Aleja Newell RETENTION REPRESENTATIVE 07/15/2012 Office visit Aleja Newell RETENTION REPRESENTATIVE 12/15/2011 Office visit Aleja Newell RETENTION REPRESENTATIVE 10/20/2011 Office visit Aleja Newell RETENTION REPRESENTATIVE 08/29/2011 Office visit Aleja Newell RETENTION REPRESENTATIVE 03/24/2011 Office visit Aleja Newell RETENTION REPRESENTATIVE 01/08/2011 Office visit Aleja Newell RETENTION REPRESENTATIVE 11/08/2010 Office visit Aleja Newell APRN 08/26/2010 Office visit Aleja Newell RETENTION REPRESENTATIVE 12/20/2009 Office visit Kareen Benitez MD 08/29/2009 Office visit [facility]
--- OUTSIDE RECORDS SUMMARY | 2018-10-29 06:26 | XMS REPORT ---
Author Author Aleja Newell [facility] Address [address] [place], [place] [address] Care Team Providers Care Disaster Recovery Specialist Name Role Phone Aleja Newell PCP Unavailable Aleja Newell PreferredProvider Unavailable Allergies and Adverse Reactions Name Reaction Notes PENICILLINS SULFA (SULFONAMIDES) prednisone Blisters in Mouth, upset stomach dirrhea Plan of Treatment Planned Activity Comments Planned Date Planned Time Plan/Goal Liver function panel 07/02/2015 12:00 AM f/u prostate surgery, elevated PSA MRI of shoulder, with and without contrast [...] MORNING AND EVENING APPROXIMATELY 12 HOURS APART Avne Allergy oral ProAir HFA 90 mcg/actuation inhalation [...] 12:00 AM Decadron, Per 1 Mg NDC# [address]-59 Reviewed 12/18/2015 12:00 AM Depo-Medrol 40mg Reviewed 08/29/2011 12:00 AM THER/PROPH/DIAG INJ SC/IM Reviewed 08/29/2011 12:00 AM Depo-Medrol 80 mg NDC#[id number]-Zalynjly Reviewed 08/29/2011 12:00 AM Depo-Medrol 40 mg NDC#[id number] Reviewed 10/22/2011 12:00 AM URINALYSIS AUTO W/O SCOPE Reviewed 10/20/2011 12:00 AM URINE CULTURE/COLONY COUNT Reviewed 08/12/2016 12:00 AM Decadron, Per 1 Mg ND# [address]-43 Reviewed 08/12/2016 12:00 AM Depo-Medrol 40mg Injection Reviewed 08/12/2016 12:00 AM ELECTROCARDIOGRAM TRACING Reviewed 12/15/2011 12:00 AM THER/PROPH/DIAG INJ SC/IM Reviewed 12/15/2011 12:00 AM Decadron 1 mg NDC#[id number] (Chad) Reviewed 12/15/2011 12:00 AM Depo-Medrol 80 mg NDC#40914808900-Cerkbugy Reviewed 11/18/2016 12:00 AM Decadron, Per 1 Mg NDC# [address]-86 Reviewed 11/18/2016 12:00 AM Depo-Medrol 40mg Injection Reviewed 03/09/2017 12:00 AM COMPLETE CBC W/AUTO DIFF WBC Returned 03/09/2017 12:00 AM COMPREHEN METABOLIC PANEL Returned 03/09/2017 12:00 AM LIPID PANEL Returned 03/09/2017 12:00 AM Decadron, Per 1 Mg ND# [address]-58 Reviewed 03/09/2017 12:00 AM Depo-Medrol 40mg Injection Reviewed 03/09/2017 12:00 AM CHEST X-RAY 2VW FRONTAL&LATL Returned 03/09/2017 12:00 AM ASSAY THYROID STIM HORMONE Returned 07/15/2012 12:00 AM THER/PROPH/DIAG INJ SC/IM Reviewed 07/15/2012 12:00 AM Decadron 1 mg NDC#29322741733 (Chad) Reviewed 07/15/2012 12:00 AM Depo-Medrol 80 mg NDC#[id number]-Achavmny Reviewed 07/15/2012 12:00 AM COMPLETE CBC W/AUTO [...] Reviewed 08/26/2010 12:00 AM Decadron 1 mg NDC#06127771124 (Chad) Reviewed 08/26/2010 12:00 AM Depo-Medrol 80 mg NDC#[id number]-Flnygool Reviewed 08/26/2010 12:00 AM THER/PROPH/DIAG INJ SC/IM Reviewed 08/26/2010 12:00 AM Decadron 8 mg NDC#24850984481 (Chad) Reviewed 08/26/2010 12:00 AM Depo-Medrol 80 mg NDC#39218795602-Omqovygc Reviewed 08/29/2009 12:00 AM FLU VACCINE 3 [...] Reviewed 07/03/2014 12:00 AM Depo-Medrol 80 mg [facility]#[address]-84 Reviewed 09/05/2014 11:17 AM URINALYSIS AUTO W/O SCOPE Reviewed 09/05/2014 12:00 AM URINE CULTURE/COLONY COUNT Reviewed 01/08/2011 12:00 AM Depo-Medrol 80 mg [facility]#86180204531-Vrdwbzfr Reviewed 01/08/2011 12:00 AM Decadron 8 mg [facility]#90268282683 (Chad) Reviewed 01/09/2015 12:00 AM COMPLETE CBC [...] Vis Given Vis Pub CVX Influenza 07/15/2012 [employer] SKB Fluzone [id number] Intramuscular Left Deltoid 07/15/2012 02/09/2012 141 X 07/15/2012 Merck & Co., Inc. MSD Pneumovax 23 [id number] Intramuscular Left Deltoid 07/15/2012 09/11/2011 999 History [...] Number Policy Group Number Start Date Medicare [facility] Medicare [facility] [id number] N/A Medicare Part B Medicare Of [place] [id number] Thursday, 2003 Medicare Part A Medicare Part A [id number] N/A Medicare Part A Medicare - Lab/Xray [id number] N/A History of Encounters Visit Date Visit Type Provider 03/09/2017 Office visit Aleja Walker PREP COOK 11/18/2016 Office visit Aleja Walker PREP COOK 08/12/2016 Office visit Aleja Walker PREP COOK 08/12/2016 Laboratory Aramis French MD 12/18/2015 Office visit Aleja Walker PREP COOK 07/02/2015 Office visit Aleja Walker PREP COOK 09/05/2014 Office visit Ebony Almodovar PREP COOK 07/03/2014 Office visit Ebony Almodovar PREP COOK 12/29/2013 Office visit Aleja Walker PREP COOK 08/17/2013 Office visit Aleja Walker PREP COOK 06/02/2013 Office visit Aleja Walker PREP COOK 11/29/2012 Hospital Aramis French MD 11/29/2012 Office visit Aleja Walker PREP COOK 11/17/2012 Office visit Aleja Walker PREP COOK 07/15/2012 Office visit Aleja Walker PREP COOK 12/15/2011 Office visit Aleja Walker PREP COOK 10/20/2011 Office visit Aleja Walker PREP COOK 08/29/2011 Office visit Aleja Walker PREP COOK 03/24/2011 Office visit Aleja Walker PREP COOK 01/08/2011 Office visit Aleja Walker PREP COOK 11/08/2010 Office visit Aleja Walker PREP COOK 08/26/2010 Office visit Aleja Walker PREP COOK 12/20/2009 Office visit Kareen Benitez MD 08/29/2009 Office visit No [facility]
--- OUTSIDE RECORDS SUMMARY | 2018-10-29 06:27 | XMS REPORT ---
Author Author Aleja Newell [facility] Address [address] [place], [place] [address] Care Team Providers Care Senior Geologist Name Role Phone Aleja Newell PCP Unavailable Aleja Newell PreferredProvider Unavailable Allergies and Adverse Reactions Name Reaction Notes PENICILLINS SULFA (SULFONAMIDES) prednisone Blisters in Mouth, upset stomach dirrhea Plan of Treatment Planned Activity Comments Planned Date Planned Time Plan/Goal Liver function panel 07/02/2015 12:00 AM f/u prostate surgery, elevated PSA CT CHEST W/CONTRAST 06/17/2017 12:00 AM MRI of shoulder, with [...] 12:00 AM Decadron, Per 1 Mg ND# [address]-49 Reviewed 12/18/2015 12:00 AM Depo-Medrol 40mg Reviewed 08/29/2011 12:00 AM THER/PROPH/DIAG INJ SC/IM Reviewed 08/29/2011 12:00 AM Depo-Medrol 80 mg NDC#[id number]-Fjrpifmg Reviewed 08/29/2011 12:00 AM Depo-Medrol 40 mg NDC#6039337304 Reviewed 10/22/2011 12:00 AM URINALYSIS AUTO W/O SCOPE Reviewed 10/20/2011 12:00 AM URINE CULTURE/COLONY COUNT Reviewed 08/12/2016 12:00 AM Decadron, Per 1 Mg ND# [address]-27 Reviewed 08/12/2016 12:00 AM Depo-Medrol 40mg Injection Reviewed 08/12/2016 12:00 AM ELECTROCARDIOGRAM TRACING Reviewed 12/15/2011 12:00 AM THER/PROPH/DIAG INJ SC/IM Reviewed 12/15/2011 12:00 AM Decadron 1 mg NDC#58490079504 (Chad) Reviewed 12/15/2011 12:00 AM Depo-Medrol 80 mg NDC#21077664055-Cfxmumjx Reviewed 11/18/2016 12:00 AM Decadron, Per 1 Mg NDC# [address]-02 Reviewed 11/18/2016 12:00 AM Depo-Medrol 40mg Injection Reviewed 03/09/2017 12:00 AM COMPLETE CBC W/AUTO DIFF WBC Reviewed 03/09/2017 12:00 AM COMPREHEN METABOLIC PANEL Reviewed 03/09/2017 12:00 AM LIPID PANEL Reviewed 03/09/2017 12:00 AM Decadron, Per 1 Mg NDC# [address]-59 Reviewed 03/09/2017 12:00 AM Depo-Medrol 40mg Injection Reviewed 03/09/2017 12:00 AM CHEST X-RAY 2VW FRONTAL&LATL Reviewed 03/09/2017 12:00 AM ASSAY THYROID STIM HORMONE Reviewed 06/17/2017 12:00 AM Decadron, Per 1 Mg ND# [address]-15 Reviewed 06/17/2017 12:00 AM Depo-Medrol, Per 80 Mg [facility]#3593-4056-15 Reviewed 06/17/2017 12:00 AM CHEST X-RAY 2VW FRONTAL&LATL Returned 07/15/2012 12:00 AM THER/PROPH/DIAG INJ SC/IM Reviewed 07/15/2012 12:00 AM Decadron 1 mg NDC#81210099792 (Chad) Reviewed 07/15/2012 12:00 AM Depo-Medrol 80 mg NDC#17287329989-Ogmfnrqh Reviewed 07/15/2012 12:00 AM COMPLETE CBC W/AUTO [...] Reviewed 08/26/2010 12:00 AM Decadron 1 mg NDC#47941709206 (Chad) Reviewed 08/26/2010 12:00 AM Depo-Medrol 80 mg NDC#26702999354-Egpqwuek Reviewed 08/26/2010 12:00 AM THER/PROPH/DIAG INJ SC/IM Reviewed 08/26/2010 12:00 AM Decadron 8 mg [facility]#[id number] (Chad) Reviewed 08/26/2010 12:00 AM Depo-Medrol 80 mg NDC#71684953165-Dqnnooly Reviewed 08/29/2009 12:00 AM FLU VACCINE 3 [...] 07/03/2014 12:00 AM Depo-Medrol 80 mg [facility]#[address]-60 Reviewed 09/05/2014 11:17 AM URINALYSIS AUTO W/O SCOPE Reviewed 09/05/2014 12:00 AM URINE CULTURE/COLONY COUNT Reviewed 01/08/2011 12:00 AM Depo-Medrol 80 mg [facility]#[id number]-Aghampcs Reviewed 01/08/2011 12:00 AM Decadron 8 mg [facility]#23233435215 (Chad) Reviewed 01/09/2015 12:00 AM COMPLETE CBC [...] Vis Given Vis Pub CVX Influenza 07/15/2012 GlaxSIGFOXine SKB Fluzone [id number] Intramuscular Left Deltoid 07/15/2012 02/09/2012 141 X 07/15/2012 Merck & Co., Inc. MSD Pneumovax 23 [id number] Intramuscular Left Deltoid 07/15/2012 09/11/2011 999 History [...] Abnormal chest x-ray Jun 17 2017 3:42PM Payers Insurance Name Company Name Plan Name Plan Number Policy Number Policy Group Number Start Date Medicare RHC Medicare RHC [id number] N/A Medicare Part B Medicare Of [place] [id number] Thursday, 2003 Medicare Part A Medicare Part A [id number] N/A Medicare Part A Medicare - Lab/Xray [id number] N/A History of Encounters Visit Date Visit Type Provider 06/17/2017 Office visit Aleja Newell TEST ENGINEER 03/09/2017 Office visit Aleja Newell TEST ENGINEER 11/18/2016 Office visit Aleja Newell TEST ENGINEER 08/12/2016 Office visit Aleja Newell TEST ENGINEER 08/12/2016 Laboratory Aramis French MD 12/18/2015 Office visit Aleja Newell TEST ENGINEER 07/02/2015 Office visit Aleja Newell TEST ENGINEER 09/05/2014 Office visit Ebony Almodovar TEST ENGINEER 07/03/2014 Office visit Ebony Almodovar TEST ENGINEER 12/29/2013 Office visit Aleja Newell TEST ENGINEER 08/17/2013 Office visit Aleja Newell TEST ENGINEER 06/02/2013 Office visit Aleja Newell TEST ENGINEER 11/29/2012 Hospital Aramis French MD 11/29/2012 Office visit Aleja Newell TEST ENGINEER 11/17/2012 Office visit Aleja Newell TEST ENGINEER 07/15/2012 Office visit Aleja Walker TEST ENGINEER 12/15/2011 Office visit Aleja Walker TEST ENGINEER 10/20/2011 Office visit Aleja Newell TEST ENGINEER 08/29/2011 Office visit Aleja Newell TEST ENGINEER 03/24/2011 Office visit Aleja Newell TEST ENGINEER 01/08/2011 Office visit Aleja Newell TEST ENGINEER 11/08/2010 Office visit Aleja Newell TEST ENGINEER 08/26/2010 Office visit Aleja Newell TEST ENGINEER 12/20/2009 Office visit Kareen Benitez MD 08/29/2009 Office visit [facility]
--- OUTSIDE RECORDS SUMMARY | 2018-10-29 06:28 | XMS REPORT ---
Author Author Aleja Newell [facility] Address [address] [place], [place] [address] Care Team Providers Care Web Marketing Specialist Name Role Phone Aleja Newell PCP Unavailable Aleja Newell PreferredProvider Unavailable Allergies and Adverse Reactions Name Reaction Notes PENICILLINS SULFA (SULFONAMIDES) prednisone Blisters in Mouth, upset stomach dirrhea Plan of Treatment Planned Activity Comments Planned Date Planned Time Plan/Goal Liver function panel 07/02/2015 12:00 AM f/u prostate surgery, elevated PSA CT CHEST W/CONTRAST 06/17/2017 12:00 AM BMP 06/22/2017 12:00 AM MRI of shoulder, with and [...] 12:00 AM Decadron, Per 1 Mg NDC# [address]-20 Reviewed 12/18/2015 12:00 AM Depo-Medrol 40mg Reviewed 08/29/2011 12:00 AM THER/PROPH/DIAG INJ SC/IM Reviewed 08/29/2011 12:00 AM Depo-Medrol 80 mg NDC#[id number]-Xeiuamnb Reviewed 08/29/2011 12:00 AM Depo-Medrol 40 mg NDC#[id number] Reviewed 10/22/2011 12:00 AM URINALYSIS AUTO W/O SCOPE Reviewed 10/20/2011 12:00 AM URINE CULTURE/COLONY COUNT Reviewed 08/12/2016 12:00 AM Decadron, Per 1 Mg ND# [address]-18 Reviewed 08/12/2016 12:00 AM Depo-Medrol 40mg Injection Reviewed 08/12/2016 12:00 AM ELECTROCARDIOGRAM TRACING Reviewed 12/15/2011 12:00 AM THER/PROPH/DIAG INJ SC/IM Reviewed 12/15/2011 12:00 AM Decadron 1 mg NDC#97097048511 (Chad) Reviewed 12/15/2011 12:00 AM Depo-Medrol 80 mg NDC#[id number]-Enxdxsbw Reviewed 11/18/2016 12:00 AM Decadron, Per 1 Mg NDC# [address]-35 Reviewed 11/18/2016 12:00 AM Depo-Medrol 40mg Injection Reviewed 03/09/2017 12:00 AM COMPLETE CBC W/AUTO DIFF WBC Reviewed 03/09/2017 12:00 AM COMPREHEN METABOLIC PANEL Reviewed 03/09/2017 12:00 AM LIPID PANEL Reviewed 03/09/2017 12:00 AM Decadron, Per 1 Mg ND# [address]-81 Reviewed 03/09/2017 12:00 AM Depo-Medrol 40mg Injection Reviewed 03/09/2017 12:00 AM CHEST X-RAY 2VW FRONTAL&LATL Reviewed 03/09/2017 12:00 AM ASSAY THYROID STIM HORMONE Reviewed 06/17/2017 12:00 AM Decadron, Per 1 Mg ND# [address]-03 Reviewed 06/17/2017 12:00 AM Depo-Medrol, Per 80 Mg ND#9534-3566-91 Reviewed 06/17/2017 12:00 AM CHEST X-RAY 2VW FRONTAL&LATL Returned 07/15/2012 12:00 AM THER/PROPH/DIAG INJ SC/IM Reviewed 07/15/2012 12:00 AM Decadron 1 mg NDC#95322963684 (Chad) Reviewed 07/15/2012 12:00 AM Depo-Medrol 80 mg NDC#45975019787-Uuxqrenl Reviewed 07/15/2012 12:00 AM COMPLETE CBC W/AUTO [...] Reviewed 08/26/2010 12:00 AM Decadron 1 mg NDC#32157647835 (Chad) Reviewed 08/26/2010 12:00 AM Depo-Medrol 80 mg NDC#95655087246-Uetuyheq Reviewed 08/26/2010 12:00 AM THER/PROPH/DIAG INJ SC/IM Reviewed 08/26/2010 12:00 AM Decadron 8 mg NDC#10261095474 (Chad) Reviewed 08/26/2010 12:00 AM Depo-Medrol 80 mg NDC#46397307076-Pltwfesr Reviewed 08/29/2009 12:00 AM FLU VACCINE 3 [...] Reviewed 07/03/2014 12:00 AM Depo-Medrol 80 mg ND#[address]-50 Reviewed 09/05/2014 11:17 AM URINALYSIS AUTO W/O SCOPE Reviewed 09/05/2014 12:00 AM URINE CULTURE/COLONY COUNT Reviewed 01/08/2011 12:00 AM Depo-Medrol 80 mg NDC#23749693750-Rtmuciac Reviewed 01/08/2011 12:00 AM Decadron 8 mg [facility]#19710695104 (Chad) Reviewed 01/09/2015 12:00 AM COMPLETE CBC [...] Pub CVX Influenza 07/15/2012 GlaxoSmithKline SKB Fluzone [id number] Intramuscular Left Deltoid 07/15/2012 02/09/2012 141 X 07/15/2012 Merck & Co., Inc. MSD Pneumovax 23 [id number] Intramuscular Left Deltoid 07/15/2012 09/11/2011 999 History [...] 3:42PM Essential hypertension Jun 22 2017 12:02PM Payers Insurance Name Company Name Plan Name Plan Number Policy Number Policy Group Number Start Date Medicare RHC Medicare RHC [id number] N/A Medicare Part B Medicare Of [place] [id number] Thursday, 2003 Medicare Part A Medicare Part A [id number] N/A Medicare Part A Medicare - Lab/Xray [id number] N/A History of Encounters Visit Date Visit Type Provider 06/17/2017 Office visit Aleja Newell PLATE CLEANER 03/09/2017 Office visit Aleja Newell PLATE CLEANER 11/18/2016 Office visit Aleja Newell PLATE CLEANER 08/12/2016 Office visit Aleja Newell PLATE CLEANER 08/12/2016 Laboratory Aramis French MD 12/18/2015 Office visit Aleja Newell PLATE CLEANER 07/02/2015 Office visit Aleja Newell PLATE CLEANER 09/05/2014 Office visit Ebony Almodovar PLATE CLEANER 07/03/2014 Office visit Ebony Almodovar PLATE CLEANER 12/29/2013 Office visit Aleja Newell PLATE CLEANER 08/17/2013 Office visit Aleja Newell PLATE CLEANER 06/02/2013 Office visit Aleja Newell PLATE CLEANER 11/29/2012 Hospital Aramis French MD 11/29/2012 Office visit Aleja Newell PLATE CLEANER 11/17/2012 Office visit Aleja Walker PLATE CLEANER 07/15/2012 Office visit Aleja Newell PLATE CLEANER 12/15/2011 Office visit Aleja Newell PLATE CLEANER 10/20/2011 Office visit Aleja Newell PLATE CLEANER 08/29/2011 Office visit Aleja Newell PLATE CLEANER 03/24/2011 Office visit Aleja Newell PLATE CLEANER 01/08/2011 Office visit Aleja Newell PLATE CLEANER 11/08/2010 Office visit Aleja Newell PLATE CLEANER 08/26/2010 Office visit Aleja Newell PLATE CLEANER 12/20/2009 Office visit Kareen Benitez MD 08/29/2009 Office visit [facility]
--- OUTSIDE RECORDS SUMMARY | 2018-10-29 06:29 | XMS REPORT ---
Author Author Ebony Almodovar [facility] Address [address] [place], [place] [address] Care Team Providers Care Storekeeper Helper Name Role Phone Ebony Almodovar PCP Unavailable [...] Reviewed 08/29/2011 12:00 AM Depo-Medrol 80 mg NDC#[id number]-Fmzuvhrw Reviewed 10/22/2011 12:00 AM URINALYSIS AUTO W/O SCOPE Reviewed 10/20/2011 12:00 AM URINE CULTURE/COLONY COUNT Returned 12/15/2011 12:00 AM THER/PROPH/DIAG INJ SC/IM Reviewed 12/15/2011 12:00 AM Decadron 1 mg NDC#36550184365 (Chad) Reviewed 12/15/2011 12:00 AM Depo-Medrol 80 mg NDC#[id number]-Iixeyvur Reviewed 07/15/2012 12:00 AM THER/PROPH/DIAG INJ SC/IM Reviewed 07/15/2012 12:00 AM Decadron 1 mg NDC#06686172831 (Chad) Reviewed 07/15/2012 12:00 AM Depo-Medrol 80 mg NDC#[id number]-Hqouetbx Reviewed 07/15/2012 12:00 AM COMPLETE CBC W/AUTO [...] Reviewed 08/26/2010 12:00 AM Decadron 1 mg NDC#43767351162 (Chad) Reviewed 08/26/2010 12:00 AM Depo-Medrol 80 mg NDC#11984540323-Jgvdnvrm Reviewed 08/26/2010 12:00 AM THER/PROPH/DIAG INJ SC/IM Reviewed 08/26/2010 12:00 AM Decadron 8 mg NDC#19121579873 (Chad) Reviewed 08/26/2010 12:00 AM Depo-Medrol 80 mg NDC#[id number]-Qbabifvm Reviewed 08/29/2009 12:00 AM FLU VACCINE 3 [...] 07/03/2014 12:00 AM Depo-Medrol 80 mg [facility]#[address]-68 Reviewed 09/05/2014 11:17 AM URINALYSIS AUTO W/O SCOPE Reviewed 09/05/2014 12:00 AM URINE CULTURE/COLONY COUNT Returned 01/08/2011 12:00 AM Depo-Medrol 80 mg [facility]#48054558738-Akubkvsq Reviewed 01/08/2011 12:00 AM Decadron 8 mg [facility]#85386301605 (Chad) Reviewed Results Summary Data and Description Results [...] Pub CVX Influenza 07/15/2012 GlaxoSmithKline SKB Fluzone [id number] Intramuscular Left Deltoid 07/15/2012 02/09/2012 141 Pneumococcal 07/15/2012 Merck & Co., Inc. MSD Pneumovax 23 [id number] Intramuscular Left Deltoid 07/15/2012 09/11/2011 999 History [...] Date Medicare Part A Medicare Part A [id number] N/A Medicare Part B Medicare Of [place] [id number] Thursday, 2003 History of Encounters Visit Date Visit Type Provider 09/05/2014 Office visit Ebony Almodovar ENERGY TRADER 07/03/2014 Office visit Ebony Almodovar ENERGY TRADER 12/29/2013 Office visit Aleja Newell ENERGY TRADER 08/17/2013 Office visit Aleja Newell ENERGY TRADER 06/02/2013 Office visit Aleja Newell ENERGY TRADER 11/29/2012 [facility] Aramis French MD 11/29/2012 Office visit Aleja Newell ENERGY TRADER 11/17/2012 Office visit Aleja Newell ENERGY TRADER 07/15/2012 Office visit Aleja Newell ENERGY TRADER 12/15/2011 Office visit Aleja Newell ENERGY TRADER 10/20/2011 Office visit Aleja Newell ENERGY TRADER 08/29/2011 Office visit Aleja Newell ENERGY TRADER 03/24/2011 Office visit Aleja Newell ENERGY TRADER 01/08/2011 Office visit Aleja Newell ENERGY TRADER 11/08/2010 Office visit Aleja Newell ENERGY TRADER 08/26/2010 Office visit Aleja Newell ENERGY TRADER 12/20/2009 Office visit Kareen Benitez MD 08/29/2009 Office visit [facility]
--- OUTSIDE RECORDS SUMMARY | 2018-10-29 06:30 | XMS REPORT ---
Author Author [facility] Organization [facility] Address [address] [place], [place] [address] Care Team Providers Care Crutching Contractor Name Role Phone PCP Unavailable Allergies and [...] Vis Given Vis Pub CVX Influenza 07/15/2012 GlaxDDx Media SKB Fluzone [id number] Intramuscular Left Deltoid 07/15/2012 02/09/2012 141 Pneumococcal 07/15/2012 Merck & Co., Inc. MSD Pneumovax 23 [id number] Intramuscular Left Deltoid 07/15/2012 09/11/2011 999 History [...] Date Medicare Part A Medicare Part A [id number] N/A Medicare Part B Medicare Of [place] [id number] Thursday, 2003 History of Encounters Visit Date Visit Type Provider 09/05/2014 Office visit Ebony Almodovar GEAR CUTTING MACHINE OPERATOR 07/03/2014 Office visit Ebony Almodovar GEAR CUTTING MACHINE OPERATOR 12/29/2013 Office visit Aleja Newell GEAR CUTTING MACHINE OPERATOR 08/17/2013 Office visit Aleja Newell GEAR CUTTING MACHINE OPERATOR 06/02/2013 Office visit Aleja Newell GEAR CUTTING MACHINE OPERATOR 11/29/2012 Office visit Aleja Newell GEAR CUTTING MACHINE OPERATOR 11/29/2012 [facility] Aramis French MD 11/17/2012 Office visit Aleja Newell GEAR CUTTING MACHINE OPERATOR 07/15/2012 Office visit Aleja Newell GEAR CUTTING MACHINE OPERATOR 12/15/2011 Office visit Aleja Newell GEAR CUTTING MACHINE OPERATOR 10/20/2011 Office visit Aleja Newell GEAR CUTTING MACHINE OPERATOR 08/29/2011 Office visit Aleja Newell GEAR CUTTING MACHINE OPERATOR 03/24/2011 Office visit Aleja Newell GEAR CUTTING MACHINE OPERATOR 01/08/2011 Office visit Aleja Newell GEAR CUTTING MACHINE OPERATOR 11/08/2010 Office visit Aleja Newell GEAR CUTTING MACHINE OPERATOR 08/26/2010 Office visit Aleja Newell GEAR CUTTING MACHINE OPERATOR 12/20/2009 Office visit Kareen Benitez MD 08/29/2009 Office visit [facility]
--- OUTSIDE RECORDS SUMMARY | 2018-10-29 06:31 | XMS REPORT ---
Author Author Aleja Newell [facility] Address [address] [place], [place] [address] Care Team Providers Care Thermo Processor Name Role Phone Aleja Newell PCP Unavailable Allergies and Adverse Reactions Name Reaction Notes PENICILLINS SULFA (SULFONAMIDES) Levaquin sores on tongue Plan of Treatment Planned Activity Comments Planned Date Planned Time Plan/Goal HEPATIC FUNCTION PANEL 07/02/2015 12:00 AM COMPLETE CBC W/AUTO DIFF WBC 12/17/2015 12:00 AM COMPREHEN METABOLIC PANEL 12/17/2015 12:00 AM LIPID PANEL 12/17/2015 12:00 AM ASSAY OF PSA TOTAL 12/17/2015 12:00 AM ASSAY OF PSA FREE 12/17/2015 12:00 AM f/u prostate surgery, elevated PSA [...] 40mg x2 days, then 20mg x4 days Advair Diskus 250-50 mcg/dose inhalation blister with device 10/22/2015 INHALE 1 PUFF BY INHALATION ROUTE 2 [...] Reviewed 08/29/2011 12:00 AM Depo-Medrol 80 mg [facility]#[id number]-Booovfig Reviewed 10/22/2011 12:00 AM URINALYSIS AUTO W/O SCOPE Reviewed 10/20/2011 12:00 AM URINE CULTURE/COLONY COUNT Returned 12/15/2011 12:00 AM THER/PROPH/DIAG INJ SC/IM Reviewed 12/15/2011 12:00 AM Decadron 1 mg [facility]#[id number] (Chad) Reviewed 12/15/2011 12:00 AM Depo-Medrol 80 mg N[facility]#[id number]-Tvprwdif Reviewed 07/15/2012 12:00 AM THER/PROPH/DIAG INJ SC/IM Reviewed 07/15/2012 12:00 AM Decadron 1 mg [facility]#91559744888 (Chad) Reviewed 07/15/2012 12:00 AM Depo-Medrol 80 mg N[facility]#[id number]-Ntxxorwv Reviewed 07/15/2012 12:00 AM COMPLETE CBC W/AUTO [...] Reviewed 08/26/2010 12:00 AM Decadron 1 mg [facility]#93727963726 (Chad) Reviewed 08/26/2010 12:00 AM Depo-Medrol 80 mg [facility]#05421161173-Qrbhojkx Reviewed 08/26/2010 12:00 AM THER/PROPH/DIAG INJ SC/IM Reviewed 08/26/2010 12:00 AM Decadron 8 mg [facility]#92248647452 (Chad) Reviewed 08/26/2010 12:00 AM Depo-Medrol 80 mg [facility]#70937103347-Tcwylxvi Reviewed 08/29/2009 12:00 AM FLU VACCINE 3 [...] 07/03/2014 12:00 AM Depo-Medrol 80 mg [facility]#[address]-57 Reviewed 09/05/2014 11:17 AM URINALYSIS AUTO W/O SCOPE Reviewed 09/05/2014 12:00 AM URINE CULTURE/COLONY COUNT Returned 01/08/2011 12:00 AM Depo-Medrol 80 mg [facility]#[id number]-Vfzevhho Reviewed 01/08/2011 12:00 AM Decadron 8 mg [facility]#87241159840 (Chad) Reviewed 01/09/2015 12:00 AM COMPLETE CBC [...] Vis Given Vis Pub CVX Influenza 07/15/2012 [employer] SKB Fluzone [id number] Intramuscular Left Deltoid 07/15/2012 02/09/2012 141 X 07/15/2012 Merck & Co., Inc. MSD Pneumovax 23 [id number] Intramuscular Left Deltoid 07/15/2012 09/11/2011 999 History [...] 2015 5:01PM Hyperlipidemia Dec 17 2015 5:01PM Payers Insurance Name Company Name Plan Name Plan Number Policy Number Policy Group Number Start Date Medicare Part A Medicare Part A [id number] N/A Medicare Part B Medicare Of [place] [id number] Thursday, 2003 History of Encounters Visit Date Visit Type Provider 07/02/2015 Office visit Aleja Newell RN HEMO DIALYSIS 09/05/2014 Office visit Ebony Almodovar RN HEMO DIALYSIS 07/03/2014 Office visit Ebony Almodovar RN HEMO DIALYSIS 12/29/2013 Office visit Aleja Newell RN HEMO DIALYSIS 08/17/2013 Office visit Aleja Newell RN HEMO DIALYSIS 06/02/2013 Office visit Aleja Newell RN HEMO DIALYSIS 11/29/2012 [facility] Aramis French MD 11/29/2012 Office visit Aleja Newell RN HEMO DIALYSIS 11/17/2012 Office visit Aleja Newell RN HEMO DIALYSIS 07/15/2012 Office visit Aleja Newell RN HEMO DIALYSIS 12/15/2011 Office visit Aleja Newell RN HEMO DIALYSIS 10/20/2011 Office visit Aleja Newell RN HEMO DIALYSIS 08/29/2011 Office visit Aleja Newell RN HEMO DIALYSIS 03/24/2011 Office visit Aleja Newell RN HEMO DIALYSIS 01/08/2011 Office visit Aleja Newell RN HEMO DIALYSIS 11/08/2010 Office visit Aleja Newell RN HEMO DIALYSIS 08/26/2010 Office visit Aleja Newell RN HEMO DIALYSIS 12/20/2009 Office visit Kareen Benitez MD 08/29/2009 Office visit No [facility]
--- OUTSIDE RECORDS SUMMARY | 2018-10-29 06:31 | XMS REPORT ---
Author Author Aleja Newell [facility] Address [address] [place], [place] [address] Care Team Providers Care Garment Form Assembler Name Role Phone Aleja Newell PCP Unavailable Aleja Newell PreferredProvider Unavailable Allergies and Adverse Reactions Name Reaction Notes PENICILLINS SULFA (SULFONAMIDES) Levaquin sores on tongue prednisone Blisters in Mouth, upset stomach dirrhea [...] daily at the same time each day Levaquin 500 mg oral tablet 08/25/2016 09/01/2016 [...] 2 times per day for 7 days Discontinued Name Start [...] 40mg x2 days, then 20mg x4 days prednisone 20 mg oral tablet 08/25/2016 08/25/2016 [...] 12:00 AM Decadron, Per 1 Mg [facility]# [address]-34 Reviewed 12/18/2015 12:00 AM Depo-Medrol 40mg Reviewed 08/29/2011 12:00 AM THER/PROPH/DIAG INJ SC/IM Reviewed 08/29/2011 12:00 AM Depo-Medrol 80 mg [facility]#[id number]-Mjcasfhj Reviewed 10/22/2011 12:00 AM URINALYSIS AUTO W/O SCOPE Reviewed 10/20/2011 12:00 AM URINE CULTURE/COLONY COUNT Reviewed 08/12/2016 12:00 AM Decadron, Per 1 Mg [facility]# [address]-33 Reviewed 08/12/2016 12:00 AM Depo-Medrol 40mg Injection Reviewed 08/12/2016 12:00 AM ELECTROCARDIOGRAM TRACING Reviewed 12/15/2011 12:00 AM THER/PROPH/DIAG INJ SC/IM Reviewed 12/15/2011 12:00 AM Decadron 1 mg [facility]#[id number] (Chad) Reviewed 12/15/2011 12:00 AM Depo-Medrol 80 mg [facility]#[id number]-Jqlhjyfd Reviewed 07/15/2012 12:00 AM THER/PROPH/DIAG INJ SC/IM Reviewed 07/15/2012 12:00 AM Decadron 1 mg [facility]#07321315140 (Chad) Reviewed 07/15/2012 12:00 AM Depo-Medrol 80 mg [facility]#[id number]-Dtdpgdrp Reviewed 07/15/2012 12:00 AM COMPLETE CBC W/AUTO [...] Reviewed 08/26/2010 12:00 AM Decadron 1 mg [facility]#[id number] (Chad) Reviewed 08/26/2010 12:00 AM Depo-Medrol 80 mg [facility]#[id number]-Dmhwigbg Reviewed 08/26/2010 12:00 AM THER/PROPH/DIAG INJ SC/IM Reviewed 08/26/2010 12:00 AM Decadron 8 mg [facility]#[id number] (Chad) Reviewed 08/26/2010 12:00 AM Depo-Medrol 80 mg [facility]#[id number]-Ozwlupmp Reviewed 08/29/2009 12:00 AM FLU VACCINE 3 [...] Reviewed 07/03/2014 12:00 AM Depo-Medrol 80 mg [facility]#[address]-98 Reviewed 09/05/2014 11:17 AM URINALYSIS AUTO W/O SCOPE Reviewed 09/05/2014 12:00 AM URINE CULTURE/COLONY COUNT Reviewed 01/08/2011 12:00 AM Depo-Medrol 80 mg [facility]#[id number]-Axmmadyj Reviewed 01/08/2011 12:00 AM Decadron 8 mg [facility]#[id number] (Chad) Reviewed 01/09/2015 12:00 AM COMPLETE CBC [...] Vis Given Vis Pub CVX Influenza 07/15/2012 [employer] SKB Fluzone [id number] Intramuscular Left Deltoid 07/15/2012 02/09/2012 141 X 07/15/2012 Merck & Co., Inc. MSD Pneumovax 23 [id number] Intramuscular Left Deltoid 07/15/2012 09/11/2011 999 History [...] Number Start Date Medicare RHC Medicare RHC [id number] N/A Medicare Part B Medicare Of [place] [id number] Thursday, 2003 Medicare Part A Medicare Part A [id number] N/A Medicare Part A Medicare - Lab/Xray [id number] N/A History of Encounters Visit Date Visit Type Provider 08/12/2016 Office visit Aleja Newell LAST CLEANER 12/18/2015 Office visit Aleja Newell LAST CLEANER 07/02/2015 Office visit Aleja Newell LAST CLEANER 09/05/2014 Office visit Ebony Almodovar LAST CLEANER 07/03/2014 Office visit Ebony Almodovar LAST CLEANER 12/29/2013 Office visit Aleja Newell LAST CLEANER 08/17/2013 Office visit Aleja Newell LAST CLEANER 06/02/2013 Office visit Aleja Newell LAST CLEANER 11/29/2012 [facility] Aramis French MD 11/29/2012 Office visit Aleja Newell LAST CLEANER 11/17/2012 Office visit Aleja Newell LAST CLEANER 07/15/2012 Office visit Aleja Newell LAST CLEANER 12/15/2011 Office visit Aleja Newell LAST CLEANER 10/20/2011 Office visit Aleja Newell LAST CLEANER 08/29/2011 Office visit Aleja Newell LAST CLEANER 03/24/2011 Office visit Aleja Newell LAST CLEANER 01/08/2011 Office visit Aleja Newell LAST CLEANER 11/08/2010 Office visit Aleja Newell LAST CLEANER 08/26/2010 Office visit Aleja Newell LAST CLEANER 12/20/2009 Office visit Kareen Benitez MD 08/29/2009 Office visit [facility]
--- OUTSIDE RECORDS SUMMARY | 2018-10-29 06:32 | XMS REPORT ---
Author Author Aleja Newell [facility] Address [address] [place], [place] [address] Care Team Providers Care Studio Sales Associate Name Role Phone Aleja Newell PCP Unavailable [...] 12/18/2015 12:00 AM Decadron, Per [address] [facility]# [address]-82 Reviewed 12/18/2015 12:00 AM Depo-Medrol 40mg Reviewed 08/29/2011 12:00 AM THER/PROPH/DIAG INJ SC/IM Reviewed 08/29/2011 12:00 AM Depo-Medrol [address] [facility]#[id number]-Prviqqsa Reviewed 10/22/2011 12:00 AM URINALYSIS AUTO W/O SCOPE Reviewed 10/20/2011 12:00 AM URINE CULTURE/COLONY COUNT Reviewed 08/12/2016 12:00 AM Decadron, Per [address] [facility]# [address]-76 Reviewed 08/12/2016 12:00 AM Depo-Medrol 40mg Injection Reviewed 12/15/2011 12:00 AM THER/PROPH/DIAG INJ SC/IM Reviewed 12/15/2011 12:00 AM Decadron 1 mg ND#[id number] (Chad) Reviewed 12/15/2011 12:00 AM Depo-Medrol [address] [facility]#[id number]-Pzjuyfnt Reviewed 07/15/2012 12:00 AM THER/PROPH/DIAG INJ SC/IM Reviewed 07/15/2012 12:00 AM Decadron 1 mg [facility]#[id number] (Chad) Reviewed 07/15/2012 12:00 AM Depo-Medrol 80 mg [facility]#[id number]-Jepqnica Reviewed 07/15/2012 12:00 AM COMPLETE CBC W/AUTO [...] Reviewed 08/26/2010 12:00 AM Decadron 1 mg [facility]#80015809200 (Chad) Reviewed 08/26/2010 12:00 AM Depo-Medrol 80 mg [facility]#12997854090-Tkhhkbud Reviewed 08/26/2010 12:00 AM THER/PROPH/DIAG INJ SC/IM Reviewed 08/26/2010 12:00 AM Decadron 8 mg [facility]#10568535896 (Chad) Reviewed 08/26/2010 12:00 AM Depo-Medrol 80 mg [facility]#[id number]-Tpjwjtsy Reviewed 08/29/2009 12:00 AM FLU VACCINE 3 [...] 07/03/2014 12:00 AM Depo-Medrol [address] [facility]#[address]-80 Reviewed 09/05/2014 11:17 AM URINALYSIS AUTO W/O SCOPE Reviewed 09/05/2014 12:00 AM URINE CULTURE/COLONY COUNT Reviewed 01/08/2011 12:00 AM Depo-Medrol [address] [facility]#73056189541-Krbbrknz Reviewed 01/08/2011 12:00 AM Decadron [address] [facility]#71181059417 (Chad) Reviewed 01/09/2015 12:00 AM COMPLETE CBC [...] Vis Given Vis Pub CVX Influenza 07/15/2012 [employer] SKB Fluzone [id number] Intramuscular Left Deltoid 07/15/2012 02/09/2012 141 X 07/15/2012 Merck & Co., Inc. MSD Pneumovax 23 [id number] Intramuscular Left Deltoid 07/15/2012 09/11/2011 999 History [...] Start Date Medicare Part A Medicare RHC [id number] N/A Medicare Part B Medicare Of [place] [id number] Thursday, 2003 Medicare Part A Medicare Part A [id number] N/A Medicare Part A Medicare - Lab/Xray [id number] N/A History of Encounters Visit Date Visit Type Provider 08/12/2016 Office visit Aleja Newell HARDWARE ENGINEER 12/18/2015 Office visit Aleja Newell HARDWARE ENGINEER 07/02/2015 Office visit Aleja Newell HARDWARE ENGINEER 09/05/2014 Office visit Ebony Almodovar HARDWARE ENGINEER 07/03/2014 Office visit Ebony Almodovar HARDWARE ENGINEER 12/29/2013 Office visit Aleja Newell HARDWARE ENGINEER 08/17/2013 Office visit Aleja Newell HARDWARE ENGINEER 06/02/2013 Office visit Aleja Newell HARDWARE ENGINEER 11/29/2012 [facility] Aramis French MD 11/29/2012 Office visit Aleja Newell HARDWARE ENGINEER 11/17/2012 Office visit Aleja Newell HARDWARE ENGINEER 07/15/2012 Office visit Aleja Newell HARDWARE ENGINEER 12/15/2011 Office visit Aleja Newell HARDWARE ENGINEER 10/20/2011 Office visit Aleja Newell HARDWARE ENGINEER 08/29/2011 Office visit Aleja Newell HARDWARE ENGINEER 03/24/2011 Office visit Aleja Newell HARDWARE ENGINEER 01/08/2011 Office visit Aleja Newell HARDWARE ENGINEER 11/08/2010 Office visit Aleja Newell HARDWARE ENGINEER 08/26/2010 Office visit Aleja Newell HARDWARE ENGINEER 12/20/2009 Office visit Kareen Benitez MD 08/29/2009 Office visit [facility]
--- OUTSIDE RECORDS SUMMARY | 2018-10-29 06:33 | XMS REPORT ---
Author Author Aleaj Newell [facility] Address [address] [place], [place] [address] Care Team Providers Care Button Tacker Name Role Phone Aleja Newell PCP Unavailable [...] 08/29/2011 12:00 AM Depo-Medrol 80 mg [facility]#[id number]-Ebhjfnwz Reviewed 10/22/2011 12:00 AM URINALYSIS AUTO W/O SCOPE Reviewed 10/20/2011 12:00 AM URINE CULTURE/COLONY COUNT Returned 12/15/2011 12:00 AM THER/PROPH/DIAG INJ SC/IM Reviewed 12/15/2011 12:00 AM Decadron 1 mg [facility]#72611906260 (Chad) Reviewed 12/15/2011 12:00 AM Depo-Medrol 80 mg [facility]#[id number]-Njqvszvi Reviewed 07/15/2012 12:00 AM THER/PROPH/DIAG INJ SC/IM Reviewed 07/15/2012 12:00 AM Decadron 1 mg [facility]#66611402553 (Chad) Reviewed 07/15/2012 12:00 AM Depo-Medrol 80 mg [facility]#74497153577-Dluirwkw Reviewed 07/15/2012 12:00 AM COMPLETE CBC W/AUTO [...] Reviewed 08/26/2010 12:00 AM Decadron 1 mg [facility]#84765105325 (Chad) Reviewed 08/26/2010 12:00 AM Depo-Medrol 80 mg [facility]#[id number]-Aqcvfkuf Reviewed 08/26/2010 12:00 AM THER/PROPH/DIAG INJ SC/IM Reviewed 08/26/2010 12:00 AM Decadron 8 mg [facility]#[id number] (Chad) Reviewed 08/26/2010 12:00 AM Depo-Medrol 80 mg [facility]#[id number]-Bbqcnadw Reviewed 08/29/2009 12:00 AM FLU VACCINE 3 [...] AM Depo-Medrol 80 mg [facility]#[address]-68 Reviewed 09/05/2014 11:17 AM URINALYSIS AUTO W/O SCOPE Reviewed 09/05/2014 12:00 AM URINE CULTURE/COLONY COUNT Returned 01/08/2011 12:00 AM Depo-Medrol 80 mg [facility]#09713726115-Tlrktzgx Reviewed 01/08/2011 12:00 AM Decadron 8 mg [facility]#97103629138 (Chad) Reviewed 01/09/2015 12:00 AM COMPLETE CBC [...] Vis Given Vis Pub CVX Influenza 07/15/2012 [employer] SKB Fluzone [id number] Intramuscular Left Deltoid 07/15/2012 02/09/2012 141 X 07/15/2012 [employer] Inc. MSD Pneumovax 23 [id number] Intramuscular Left Deltoid 07/15/2012 09/11/2011 999 History [...] Start Date Medicare Part A Medicare RHC [id number] N/A Medicare Part B Medicare Of [place] [id number] Thursday, 2003 Medicare Part A Medicare Part A [id number] N/A Medicare Part A Medicare - Lab/Xray [id number] N/A History of Encounters Visit Date Visit Type Provider 12/18/2015 Office visit Aleja Newell MODERN AND CONTEMPORARY ART CURATOR 07/02/2015 Office visit Aleja Newell MODERN AND CONTEMPORARY ART CURATOR 09/05/2014 Office visit Ebony Almodovar MODERN AND CONTEMPORARY ART CURATOR 07/03/2014 Office visit Ebony Almodovar MODERN AND CONTEMPORARY ART CURATOR 12/29/2013 Office visit Aleja Newell MODERN AND CONTEMPORARY ART CURATOR 08/17/2013 Office visit Aleja Newell MODERN AND CONTEMPORARY ART CURATOR 06/02/2013 Office visit Aleja Newell MODERN AND CONTEMPORARY ART CURATOR 11/29/2012 [facility] Aramis French MD 11/29/2012 Office visit Aleja Newell MODERN AND CONTEMPORARY ART CURATOR 11/17/2012 Office visit Aleja Newell MODERN AND CONTEMPORARY ART CURATOR 07/15/2012 Office visit Aleja Newell MODERN AND CONTEMPORARY ART CURATOR 12/15/2011 Office visit Aleja Newell MODERN AND CONTEMPORARY ART CURATOR 10/20/2011 Office visit Aleja Newell MODERN AND CONTEMPORARY ART CURATOR 08/29/2011 Office visit Aleja Newell MODERN AND CONTEMPORARY ART CURATOR 03/24/2011 Office visit Aleja Newell MODERN AND CONTEMPORARY ART CURATOR 01/08/2011 Office visit Aleja Newell MODERN AND CONTEMPORARY ART CURATOR 11/08/2010 Office visit Aleja Newell MODERN AND CONTEMPORARY ART CURATOR 08/26/2010 Office visit Aleja Newell MODERN AND CONTEMPORARY ART CURATOR 12/20/2009 Office visit Kareen Benitez MD 08/29/2009 Office visit [facility]
--- OUTSIDE RECORDS SUMMARY | 2018-10-29 06:34 | XMS REPORT ---
Author Author Aleja Newell [facility] Address [address] [place], [place] [address] Care Team Providers Care Registered Nurse Hh Case Manager Name Role Phone Aleja Newell PCP Unavailable [...] 12:00 AM Decadron, Per 1 Mg [facility]# [address]-33 Reviewed 12/18/2015 12:00 AM Depo-Medrol 40mg Reviewed 08/29/2011 12:00 AM THER/PROPH/DIAG INJ SC/IM Reviewed 08/29/2011 12:00 AM Depo-Medrol 80 mg [facility]#[id number]-Basfpzhp Reviewed 08/29/2011 12:00 AM Depo-Medrol 40 mg [facility]#9552700583 Reviewed 10/22/2011 12:00 AM URINALYSIS AUTO W/O SCOPE Reviewed 10/20/2011 12:00 AM URINE CULTURE/COLONY COUNT Reviewed 08/12/2016 12:00 AM Decadron, Per 1 Mg ND# [address]-03 Reviewed 08/12/2016 12:00 AM Depo-Medrol 40mg Injection Reviewed 08/12/2016 12:00 AM ELECTROCARDIOGRAM TRACING Reviewed 12/15/2011 12:00 AM THER/PROPH/DIAG INJ SC/IM Reviewed 12/15/2011 12:00 AM Decadron 1 mg [facility]#16368570392 (Chad) Reviewed 12/15/2011 12:00 AM Depo-Medrol 80 mg [facility]#[id number]-Ispafvgi Reviewed 11/18/2016 12:00 AM Decadron, Per 1 Mg [facility]# [address]-77 Reviewed 11/18/2016 12:00 AM Depo-Medrol 40mg Injection Reviewed 03/09/2017 12:00 AM COMPLETE CBC W/AUTO DIFF WBC Reviewed 03/09/2017 12:00 AM COMPREHEN METABOLIC PANEL Reviewed 03/09/2017 12:00 AM LIPID PANEL Reviewed 03/09/2017 12:00 AM Decadron, Per 1 Mg ND# [address]-31 Reviewed 03/09/2017 12:00 AM Depo-Medrol 40mg Injection Reviewed 03/09/2017 12:00 AM CHEST X-RAY 2VW FRONTAL&LATL Reviewed 03/09/2017 12:00 AM ASSAY THYROID STIM HORMONE Reviewed 06/17/2017 12:00 AM Decadron, Per 1 Mg ND# [address]-88 Reviewed 06/17/2017 12:00 AM Depo-Medrol, Per 80 Mg ND#1247-6370-06 Reviewed 06/17/2017 12:00 AM CHEST X-RAY 2VW FRONTAL&LATL Returned 07/15/2012 12:00 AM THER/PROPH/DIAG INJ SC/IM Reviewed 07/15/2012 12:00 AM Decadron 1 mg [facility]#99751992864 (Chad) Reviewed 07/15/2012 12:00 AM Depo-Medrol 80 mg [facility]#[id number]-Nphwhmbf Reviewed 07/15/2012 12:00 AM COMPLETE CBC W/AUTO [...] Reviewed 08/26/2010 12:00 AM Decadron 1 mg [facility]#48933900220 (Chad) Reviewed 08/26/2010 12:00 AM Depo-Medrol 80 mg [facility]#75243225340-Anjaofhy Reviewed 08/26/2010 12:00 AM THER/PROPH/DIAG INJ SC/IM Reviewed 08/26/2010 12:00 AM Decadron 8 mg [facility]#03350480776 (Chad) Reviewed 08/26/2010 12:00 AM Depo-Medrol 80 mg [facility]#[id number]-Eidhvigh Reviewed 08/29/2009 12:00 AM FLU VACCINE 3 [...] Reviewed 07/03/2014 12:00 AM Depo-Medrol 80 mg ND#[address]-54 Reviewed 09/05/2014 11:17 AM URINALYSIS AUTO W/O SCOPE Reviewed 09/05/2014 12:00 AM URINE CULTURE/COLONY COUNT Reviewed 01/08/2011 12:00 AM Depo-Medrol 80 mg [facility]#83282120364-Qfnihyqp Reviewed 01/08/2011 12:00 AM Decadron 8 mg [facility]#51254018172 (Chad) Reviewed 01/09/2015 12:00 AM COMPLETE CBC [...] Pub CVX Influenza 07/15/2012 [employer] SKB Fluzone [id number] Intramuscular Left Deltoid 07/15/2012 02/09/2012 141 X 07/15/2012 [employer]ck & Co., Inc. MSD Pneumovax 23 [id number] Intramuscular Left Deltoid 07/15/2012 09/11/2011 999 History [...] Number Start Date Medicare RHC Medicare RHC [id number] N/A Medicare Part B Medicare Of [place] [id number] Thursday, 2003 Medicare Part A Medicare Part A [id number] N/A Medicare Part A Medicare - Lab/Xray [id number] N/A History of Encounters Visit Date Visit Type Provider 06/17/2017 Office visit Aleja Newell GREEN PROMOTIONS SPECIALIST 03/09/2017 Office visit Aleja Newell GREEN PROMOTIONS SPECIALIST 11/18/2016 Office visit Aleja Newell GREEN PROMOTIONS SPECIALIST 08/12/2016 Office visit Aleja Newell GREEN PROMOTIONS SPECIALIST 08/12/2016 Laboratory Aramis French MD 12/18/2015 Office visit Aleja Newell GREEN PROMOTIONS SPECIALIST 07/02/2015 Office visit Aleja Newell GREEN PROMOTIONS SPECIALIST 09/05/2014 Office visit Ebony Almodovar GREEN PROMOTIONS SPECIALIST 07/03/2014 Office visit Ebony Almodovar GREEN PROMOTIONS SPECIALIST 12/29/2013 Office visit Aleja Newell GREEN PROMOTIONS SPECIALIST 08/17/2013 Office visit Aleja Newell GREEN PROMOTIONS SPECIALIST 06/02/2013 Office visit Aleja Newell GREEN PROMOTIONS SPECIALIST 11/29/2012 Hospital Aramis French MD 11/29/2012 Office visit Aleja Newell GREEN PROMOTIONS SPECIALIST 11/17/2012 Office visit Aleja Walker GREEN PROMOTIONS SPECIALIST 07/15/2012 Office visit Aleja Newell GREEN PROMOTIONS SPECIALIST 12/15/2011 Office visit Aleja Newell GREEN PROMOTIONS SPECIALIST 10/20/2011 Office visit Aleja Newell GREEN PROMOTIONS SPECIALIST 08/29/2011 Office visit Aleja Newell GREEN PROMOTIONS SPECIALIST 03/24/2011 Office visit Aleja Newell GREEN PROMOTIONS SPECIALIST 01/08/2011 Office visit Aleja Newell GREEN PROMOTIONS SPECIALIST 11/08/2010 Office visit Aleja Newell GREEN PROMOTIONS SPECIALIST 08/26/2010 Office visit Aleja Newell GREEN PROMOTIONS SPECIALIST 12/20/2009 Office visit Kareen Benitez MD 08/29/2009 Office visit [facility]
--- OUTSIDE RECORDS SUMMARY | 2018-10-29 06:35 | XMS REPORT ---
Author Author Aleja Newell [facility] Address [address] [place], [place] [address] Care Team Providers Care Property Condition Assessor Name Role Phone Aleja Newell PCP Unavailable [...] of Procedures Date Ordered Description Order Status 12/18/2015 12:00 AM Decadron, Per 1 Mg [facility]# [address]-55 Reviewed 12/18/2015 12:00 AM Depo-Medrol 40mg Reviewed 08/29/2011 12:00 AM THER/PROPH/DIAG INJ SC/IM Reviewed 08/29/2011 12:00 AM Depo-Medrol 80 mg [facility]#[id number]-Gjgxjbwd Reviewed 10/22/2011 12:00 AM URINALYSIS AUTO W/O SCOPE Reviewed 10/20/2011 12:00 AM URINE CULTURE/COLONY COUNT Returned 12/15/2011 12:00 AM THER/PROPH/DIAG INJ SC/IM Reviewed 12/15/2011 12:00 AM Decadron 1 mg [facility]#59327943795 (Chad) Reviewed 12/15/2011 12:00 AM Depo-Medrol 80 mg [facility]#83105202444-Kfdobmuz Reviewed 07/15/2012 12:00 AM THER/PROPH/DIAG INJ SC/IM Reviewed 07/15/2012 12:00 AM Decadron 1 mg [facility]#57307493735 (Chad) Reviewed 07/15/2012 12:00 AM Depo-Medrol 80 mg [facility]#[id number]-Xglefyrb Reviewed 07/15/2012 12:00 AM COMPLETE CBC W/AUTO [...] Reviewed 08/26/2010 12:00 AM Decadron 1 mg [facility]#91996646512 (Chad) Reviewed 08/26/2010 12:00 AM Depo-Medrol 80 mg [facility]#63725328580-Xdujnbiu Reviewed 08/26/2010 12:00 AM THER/PROPH/DIAG INJ SC/IM Reviewed 08/26/2010 12:00 AM Decadron 8 mg [facility]#16907272816 (Chad) Reviewed 08/26/2010 12:00 AM Depo-Medrol 80 mg [facility]#[id number]-Hfbuwvdk Reviewed 08/29/2009 12:00 AM FLU VACCINE 3 [...] Reviewed 07/03/2014 12:00 AM Depo-Medrol 80 mg [facility]#[address]-02 Reviewed 09/05/2014 11:17 AM URINALYSIS AUTO W/O SCOPE Reviewed 09/05/2014 12:00 AM URINE CULTURE/COLONY COUNT Returned 01/08/2011 12:00 AM Depo-Medrol 80 mg [facility]#[id number]-Vqjqequm Reviewed 01/08/2011 12:00 AM Decadron 8 mg [facility]#[id number] (Chad) Reviewed 01/09/2015 12:00 AM COMPLETE CBC [...] Vis Given Vis Pub CVX Influenza 07/15/2012 [employer] SKB Fluzone [id number] Intramuscular Left Deltoid 07/15/2012 02/09/2012 141 X 07/15/2012 Merck & Co., Inc. MSD Pneumovax 23 [id number] Intramuscular Left Deltoid 07/15/2012 09/11/2011 999 History [...] Start Date Medicare Part A Medicare RHC [id number] N/A Medicare Part B Medicare Of [place] [id number] Thursday, 2003 Medicare Part A Medicare Part A [id number] N/A Medicare Part A Medicare - Lab/Xray [id number] N/A History of Encounters Visit Date Visit Type Provider 12/18/2015 Office visit Aleja Newell WATCH DIAL STONER 07/02/2015 Office visit Aleja Newell WATCH DIAL STONER 09/05/2014 Office visit Ebony Almodovar WATCH DIAL STONER 07/03/2014 Office visit Ebony Almodovar WATCH DIAL STONER 12/29/2013 Office visit Aleja Newell WATCH DIAL STONER 08/17/2013 Office visit Aleja Newell WATCH DIAL STONER 06/02/2013 Office visit Aleja Newell WATCH DIAL STONER 11/29/2012 [facility] Aramis French MD 11/29/2012 Office visit Aleja Newell WATCH DIAL STONER 11/17/2012 Office visit Aleja Newell WATCH DIAL STONER 07/15/2012 Office visit Aleja Newell WATCH DIAL STONER 12/15/2011 Office visit Aleja Newell WATCH DIAL STONER 10/20/2011 Office visit Aleja Newell WATCH DIAL STONER 08/29/2011 Office visit Aleja Newell WATCH DIAL STONER 03/24/2011 Office visit Aelja Newell WATCH DIAL STONER 01/08/2011 Office visit Aleja Newell WATCH DIAL STONER 11/08/2010 Office visit Aleja Newell WATCH DIAL STONER 08/26/2010 Office visit Aleja Newell APRN 12/20/2009 Office visit Kareen Benitez MD 08/29/2009 Office visit [facility]
--- OUTSIDE RECORDS SUMMARY | 2018-10-29 06:36 | XMS REPORT ---
Author Author Aleja Newell [facility] Address [address] [place], [place] [address] Care Team Providers Care Saute Chef Name Role Phone Aleja Newell PCP Unavailable [...] Reviewed 08/29/2011 12:00 AM Depo-Medrol 80 mg [facility]#[id number]-Xofofers Reviewed 10/22/2011 12:00 AM URINALYSIS AUTO W/O SCOPE Reviewed 10/20/2011 12:00 AM URINE CULTURE/COLONY COUNT Returned 12/15/2011 12:00 AM THER/PROPH/DIAG INJ SC/IM Reviewed 12/15/2011 12:00 AM Decadron 1 mg [facility]#[id number] (Chad) Reviewed 12/15/2011 12:00 AM Depo-Medrol 80 mg [facility]#[id number]-Eebginal Reviewed 07/15/2012 12:00 AM THER/PROPH/DIAG INJ SC/IM Reviewed 07/15/2012 12:00 AM Decadron 1 mg [facility]#87357166236 (Chad) Reviewed 07/15/2012 12:00 AM Depo-Medrol 80 mg [facility]#[id number]-Scuhoejv Reviewed 07/15/2012 12:00 AM COMPLETE CBC W/AUTO [...] Reviewed 08/26/2010 12:00 AM Decadron 1 mg [facility]#95250219227 (Chad) Reviewed 08/26/2010 12:00 AM Depo-Medrol 80 mg [facility]#[id number]-Zrzjewil Reviewed 08/26/2010 12:00 AM THER/PROPH/DIAG INJ SC/IM Reviewed 08/26/2010 12:00 AM Decadron 8 mg [facility]#59940073116 (Chad) Reviewed 08/26/2010 12:00 AM Depo-Medrol 80 mg [facility]#[id number]-Cbihjgqm Reviewed 08/29/2009 12:00 AM FLU VACCINE 3 [...] Reviewed 07/03/2014 12:00 AM Depo-Medrol 80 mg [facility]#[address]-10 Reviewed 09/05/2014 11:17 AM URINALYSIS AUTO W/O SCOPE Reviewed 09/05/2014 12:00 AM URINE CULTURE/COLONY COUNT Returned 01/08/2011 12:00 AM Depo-Medrol 80 mg [facility]#[id number]-Uwibsagg Reviewed 01/08/2011 12:00 AM Decadron 8 mg [facility]#[id number] (Chad) Reviewed 01/09/2015 12:00 AM COMPLETE CBC [...] Pub CVX Influenza 07/15/2012 [employer] SKB Fluzone [id number] Intramuscular Left Deltoid 07/15/2012 02/09/2012 141 Pneumococcal 07/15/2012 Merck & Co., Inc. MSD Pneumovax 23 [id number] Intramuscular Left Deltoid 07/15/2012 09/11/2011 999 History [...] Date Medicare Part A Medicare Part A [id number] N/A Medicare Part B Medicare Of [place] [id number] Cristian, 2003 History of Encounters Visit Date Visit Type Provider 07/02/2015 Office visit Aleja Reece STRIKE OUT MACHINE OPERATOR 09/05/2014 Office visit Ebony Almodovar STRIKE OUT MACHINE OPERATOR 07/03/2014 Office visit Ebony Almodovar STRIKE OUT MACHINE OPERATOR 12/29/2013 Office visit Aleja Newell STRIKE OUT MACHINE OPERATOR 08/17/2013 Office visit Aleja Reece STRIKE OUT MACHINE OPERATOR 06/02/2013 Office visit Aleja Reece STRIKE OUT MACHINE OPERATOR 11/29/2012 [facility] Aramis French MD 11/29/2012 Office visit Aleja Newell STRIKE OUT MACHINE OPERATOR 11/17/2012 Office visit Aleja Newell STRIKE OUT MACHINE OPERATOR 07/15/2012 Office visit Aleja Reece STRIKE OUT MACHINE OPERATOR 12/15/2011 Office visit Aleja Reece STRIKE OUT MACHINE OPERATOR 10/20/2011 Office visit Aleja Reece STRIKE OUT MACHINE OPERATOR 08/29/2011 Office visit Aleja Newell STRIKE OUT MACHINE OPERATOR 03/24/2011 Office visit Aleja Newell STRIKE OUT MACHINE OPERATOR 01/08/2011 Office visit Aleja Newell STRIKE OUT MACHINE OPERATOR 11/08/2010 Office visit Aleja Reece STRIKE OUT MACHINE OPERATOR 08/26/2010 Office visit Aleja Newell STRIKE OUT MACHINE OPERATOR 12/20/2009 Office visit Kareen Benitez MD 08/29/2009 Office visit No [facility]
--- OUTSIDE RECORDS SUMMARY | 2018-10-29 06:37 | XMS REPORT ---
Author Author Aleja Newell [facility] Address [address] [place], [place] [address] Care Team Providers Care Advanced Manufacturing Consultant Name Role Phone Aleja Newell PCP Unavailable [...] 12/18/2015 12:00 AM Primitivo Xiong 1 Mg [facility]# [address]-39 Reviewed 12/18/2015 12:00 AM Depo-Medrol 40mg Reviewed 08/29/2011 12:00 AM THER/PROPH/DIAG INJ SC/IM Reviewed 08/29/2011 12:00 AM Depo-Medrol 80 mg NDC#[id number]-Pclkibse Reviewed 10/22/2011 12:00 AM URINALYSIS AUTO W/O SCOPE Reviewed 10/20/2011 12:00 AM URINE CULTURE/COLONY COUNT Returned 12/15/2011 12:00 AM THER/PROPH/DIAG INJ SC/IM Reviewed 12/15/2011 12:00 AM Decadron 1 mg NDC#[id number] (Chad) Reviewed 12/15/2011 12:00 AM Depo-Medrol 80 mg NDC#[id number]-Xibfwatp Reviewed 07/15/2012 12:00 AM THER/PROPH/DIAG INJ SC/IM Reviewed 07/15/2012 12:00 AM Decadron 1 mg NDC#24035272760 (Chad) Reviewed 07/15/2012 12:00 AM Depo-Medrol 80 mg NDC#[id number]-Whtwlhro Reviewed 07/15/2012 12:00 AM COMPLETE CBC W/AUTO [...] Reviewed 08/26/2010 12:00 AM Decadron 1 mg NDC#[id number] (Chad) Reviewed 08/26/2010 12:00 AM Depo-Medrol 80 mg NDC#[id number]-Fwbcegrb Reviewed 08/26/2010 12:00 AM THER/PROPH/DIAG INJ SC/IM Reviewed 08/26/2010 12:00 AM Decadron 8 mg NDC#[id number] (Chad) Reviewed 08/26/2010 12:00 AM Depo-Medrol 80 mg NDC#[id number]-Ywoucfis Reviewed 08/29/2009 12:00 AM FLU VACCINE 3 [...] 07/03/2014 12:00 AM Depo-Medrol 80 mg [facility]#[address]-34 Reviewed 09/05/2014 11:17 AM URINALYSIS AUTO W/O SCOPE Reviewed 09/05/2014 12:00 AM URINE CULTURE/COLONY COUNT Returned 01/08/2011 12:00 AM Depo-Medrol 80 mg NDC#[id number]-Ojyhstwd Reviewed 01/08/2011 12:00 AM Decadron 8 mg NDC#[id number] (Chad) Reviewed 01/09/2015 12:00 AM COMPLETE CBC [...] Vis Given Vis Pub CVX Influenza 07/15/2012 GlaxKantox[employer] SKB Fluzone [id number] Intramuscular Left Deltoid 07/15/2012 02/09/2012 141 X 07/15/2012 [employer]ck [employer] Co., Inc. MSD Pneumovax 23 [id number] Intramuscular Left Deltoid 07/15/2012 09/11/2011 999 History [...] Start Date Medicare Part A Medicare RHC [id number] N/A Medicare Part B Medicare Of [place] [id number] Thursday, 2003 Medicare Part A Medicare Part A [id number] N/A Medicare Part A Medicare - Lab/Xray [id number] N/A History of Encounters Visit Date Visit Type Provider 12/18/2015 Office visit Aleja Newell TERRAZZO WORKER 07/02/2015 Office visit Aleja Newell TERRAZZO WORKER 09/05/2014 Office visit Ebony Almodovar TERRAZZO WORKER 07/03/2014 Office visit Ebony Almodovar TERRAZZO WORKER 12/29/2013 Office visit Aleja Newell TERRAZZO WORKER 08/17/2013 Office visit Aleja Newell TERRAZZO WORKER 06/02/2013 Office visit Aleja Newell TERRAZZO WORKER 11/29/2012 [facility] Pedro French MD 11/29/2012 Office visit Aleja Newell TERRAZZO WORKER 11/17/2012 Office visit Aleja Newell TERRAZZO WORKER 07/15/2012 Office visit Aleja Newell TERRAZZO WORKER 12/15/2011 Office visit Aleja Newell TERRAZZO WORKER 10/20/2011 Office visit Aleja Newell TERRAZZO WORKER 08/29/2011 Office visit Aleja Newell TERRAZZO WORKER 03/24/2011 Office visit Aleja Newell TERRAZZO WORKER 01/08/2011 Office visit Aleja Newell TERRAZZO WORKER 11/08/2010 Office visit Aleja Newell TERRAZZO WORKER 08/26/2010 Office visit Aleja Newell TERRAZZO WORKER 12/20/2009 Office visit Kareen Benitez MD 08/29/2009 Office visit [facility]
--- OUTSIDE RECORDS SUMMARY | 2018-10-29 06:38 | XMS REPORT ---
Author Author Aleja Newell [facility] Address [address] [place], [place] [address] Care Team Providers Care Electric Drill Operator Name Role Phone Aleja Newell PCP Unavailable [...] 12:00 AM Decadron, Per 1 Mg [place]# [address]-18 Reviewed 12/18/2015 12:00 AM Depo-Medrol 40mg Reviewed 08/29/2011 12:00 AM THER/PROPH/DIAG INJ SC/IM Reviewed 08/29/2011 12:00 AM Depo-Medrol 80 mg NDC#[id number]-Chlihxog Reviewed 08/29/2011 12:00 AM Depo-Medrol 40 mg NDC#[id number] Reviewed 10/22/2011 12:00 AM URINALYSIS AUTO W/O SCOPE Reviewed 10/20/2011 12:00 AM URINE CULTURE/COLONY COUNT Reviewed 08/12/2016 12:00 AM Decadron, Per 1 Mg [place]# [address]-11 Reviewed 08/12/2016 12:00 AM Depo-Medrol 40mg Injection Reviewed 08/12/2016 12:00 AM ELECTROCARDIOGRAM TRACING Reviewed 12/15/2011 12:00 AM THER/PROPH/DIAG INJ SC/IM Reviewed 12/15/2011 12:00 AM Decadron 1 mg NDC#[id number] (Chad) Reviewed 12/15/2011 12:00 AM Depo-Medrol 80 mg NDC#[id number]-Cufkxkni Reviewed 11/18/2016 12:00 AM Decadron, Per 1 Mg NDC# [address]-01 Reviewed 11/18/2016 12:00 AM Depo-Medrol 40mg Injection Reviewed 03/09/2017 12:00 AM COMPLETE CBC W/AUTO DIFF WBC Reviewed 03/09/2017 12:00 AM COMPREHEN METABOLIC PANEL Reviewed 03/09/2017 12:00 AM LIPID PANEL Reviewed 03/09/2017 12:00 AM Decadron, Per 1 Mg NDC# [address]-64 Reviewed 03/09/2017 12:00 AM Depo-Medrol 40mg Injection Reviewed 03/09/2017 12:00 AM CHEST X-RAY 2VW FRONTAL&LATL Reviewed 03/09/2017 12:00 AM ASSAY THYROID STIM HORMONE Reviewed 06/17/2017 12:00 AM Decadron, Per 1 Mg [place]# [address]-95 Reviewed 06/17/2017 12:00 AM Depo-Medrol, Per 80 Mg [facility]#0922-1654-63 Reviewed 06/17/2017 12:00 AM CHEST X-RAY 2VW FRONTAL&LATL Returned 07/15/2012 12:00 AM THER/PROPH/DIAG INJ SC/IM Reviewed 07/15/2012 12:00 AM Decadron 1 mg NDC#[id number] (Chad) Reviewed 07/15/2012 12:00 AM Depo-Medrol 80 mg NDC#[id number]-Xbrxpmyd Reviewed 07/15/2012 12:00 AM COMPLETE CBC W/AUTO [...] Reviewed 08/26/2010 12:00 AM Decadron 1 mg NDC#63534809540 (Chad) Reviewed 08/26/2010 12:00 AM Depo-Medrol 80 mg NDC#61080394775-Seszdsey Reviewed 08/26/2010 12:00 AM THER/PROPH/DIAG INJ SC/IM Reviewed 08/26/2010 12:00 AM Decadron 8 mg [facility]#36485174332 (Chad) Reviewed 08/26/2010 12:00 AM Depo-Medrol 80 mg NDC#29760249447-Kyjblpvw Reviewed 08/29/2009 12:00 AM FLU VACCINE 3 [...] 80 mg [facility]#[address]-98 Reviewed 09/05/2014 11:17 AM URINALYSIS AUTO W/O SCOPE Reviewed 09/05/2014 12:00 AM URINE CULTURE/COLONY COUNT Reviewed 01/08/2011 12:00 AM Depo-Medrol 80 mg [facility]#[id number]-Cjrkeeha Reviewed 01/08/2011 12:00 AM Decadron 8 mg [facility]#[id number] (Chad) Reviewed 01/09/2015 12:00 AM COMPLETE CBC [...] Vis Given Vis Pub CVX Influenza 07/15/2012 GlaxBusuuine SKB Fluzone [id number] Intramuscular Left Deltoid 07/15/2012 02/09/2012 141 X 07/15/2012 Merck & Co., Inc. MSD Pneumovax 23 [id number] Intramuscular Left Deltoid 07/15/2012 09/11/2011 999 History [...] Number Start Date Medicare RHC Medicare RHC [id number] N/A Medicare Part B Medicare Of [place] [id number] Thursday, 2003 Medicare Part A Medicare Part A [id number] N/A Medicare Part A Medicare - Lab/Xray [id number] N/A History of Encounters Visit Date Visit Type Provider 06/17/2017 Office visit Aleja Newell PASTORAL ASSISTANT 03/09/2017 Office visit Aleja Newell PASTORAL ASSISTANT 11/18/2016 Office visit Aleja Newell PASTORAL ASSISTANT 08/12/2016 Office visit Aleja Newell PASTORAL ASSISTANT 08/12/2016 Laboratory Aramis French MD 12/18/2015 Office visit Aleja Newell PASTORAL ASSISTANT 07/02/2015 Office visit Aleja Newell PASTORAL ASSISTANT 09/05/2014 Office visit Ebony Almodovar PASTORAL ASSISTANT 07/03/2014 Office visit Ebony Almodovar PASTORAL ASSISTANT 12/29/2013 Office visit Aleja Newell PASTORAL ASSISTANT 08/17/2013 Office visit Aleja Newell PASTORAL ASSISTANT 06/02/2013 Office visit Aleja Newell PASTORAL ASSISTANT 11/29/2012 Hospital Aramis French MD 11/29/2012 Office visit Aleja Newell PASTORAL ASSISTANT 11/17/2012 Office visit Aleja Newell PASTORAL ASSISTANT 07/15/2012 Office visit Aleja Walker PASTORAL ASSISTANT 12/15/2011 Office visit Aleja Walker PASTORAL ASSISTANT 10/20/2011 Office visit Aleja Newell PASTORAL ASSISTANT 08/29/2011 Office visit Aleja Newell PASTORAL ASSISTANT 03/24/2011 Office visit Aleja Newell PASTORAL ASSISTANT 01/08/2011 Office visit Aleja Newell PASTORAL ASSISTANT 11/08/2010 Office visit Aleja Newell PASTORAL ASSISTANT 08/26/2010 Office visit Aleja Newell PASTORAL ASSISTANT 12/20/2009 Office visit Kareen Benitez MD 08/29/2009 Office visit [facility]
--- OUTSIDE RECORDS SUMMARY | 2018-10-29 06:39 | XMS REPORT ---
Author Author Aleja Newell [facility] Address [address] [place], [place] [address] Care Team Providers Care Paraffin Plant Sweater Operator Name Role Phone Aleja Newell PCP [...] as needed Levaquin 500 mg oral tablet 11/18/2016 11/25/2016 [...] HC BMI BSA BMI Percentile O2 Sat(%) 11/18/2016 10:16:00 AM 160 mmHg 90 mmHg [...] 12/18/2015 12:00 AM Decadron, Per 1 Mg [facility]# [address]-64 Reviewed 12/18/2015 12:00 AM Depo-Medrol 40mg Reviewed 08/29/2011 12:00 AM THER/PROPH/DIAG INJ SC/IM Reviewed 08/29/2011 12:00 AM Depo-Medrol 80 mg [facility]#[id number]-Juecgsno Reviewed 10/22/2011 12:00 AM URINALYSIS AUTO W/O SCOPE Reviewed 10/20/2011 12:00 AM URINE CULTURE/COLONY COUNT Reviewed 08/12/2016 12:00 AM Decadron, Per 1 Mg [facility]# [address]-57 Reviewed 08/12/2016 12:00 AM Depo-Medrol 40mg Injection Reviewed 08/12/2016 12:00 AM ELECTROCARDIOGRAM TRACING Reviewed 12/15/2011 12:00 AM THER/PROPH/DIAG INJ SC/IM Reviewed 12/15/2011 12:00 AM Decadron 1 mg NDC#02475888172 (Chad) Reviewed 12/15/2011 12:00 AM Depo-Medrol 80 mg NDC#[id number]-Juqybkqv Reviewed 11/18/2016 12:00 AM Decadron, Per 1 Mg [facility]# [address]-53 Reviewed 11/18/2016 12:00 AM Depo-Medrol 40mg Injection Reviewed 07/15/2012 12:00 AM THER/PROPH/DIAG INJ SC/IM Reviewed 07/15/2012 12:00 AM Decadron 1 mg ND#57430358084 (Chad) Reviewed 07/15/2012 12:00 AM Depo-Medrol 80 mg NDC#[id number]-Efosgsax Reviewed 07/15/2012 12:00 AM COMPLETE CBC W/AUTO [...] Reviewed 08/26/2010 12:00 AM Decadron 1 mg ND#58441399935 (Chad) Reviewed 08/26/2010 12:00 AM Depo-Medrol 80 mg NDC#[id number]-Ydtahtyf Reviewed 08/26/2010 12:00 AM THER/PROPH/DIAG INJ SC/IM Reviewed 08/26/2010 12:00 AM Decadron 8 mg NDC#59820981818 (Chad) Reviewed 08/26/2010 12:00 AM Depo-Medrol 80 mg NDC#[id number]-Hvgrabjf Reviewed 08/29/2009 12:00 AM FLU VACCINE 3 [...] Reviewed 07/03/2014 12:00 AM Depo-Medrol 80 mg NDC#[address]-94 Reviewed 09/05/2014 11:17 AM URINALYSIS AUTO W/O SCOPE Reviewed 09/05/2014 12:00 AM URINE CULTURE/COLONY COUNT Reviewed 01/08/2011 12:00 AM Depo-Medrol 80 mg NDC#[id number]-Jikqawax Reviewed 01/08/2011 12:00 AM Decadron 8 mg NDC#27385580455 (Chad) Reviewed 01/09/2015 12:00 AM COMPLETE CBC [...] 14.60 g/dLHCT 45.80 %MCV 87.0 fLMCH 27.60 [facility] 31.90 g/dLRDW SD 44 RDW CV 13.90 %MPV 9.70 fLPLT 183 NRBC# 0.00 NRBC% 0.0 %NEUT 71.10 %%LYMP 12.70 %%MONO 7.40 %%EOS 7.70 %%BASO 0.80 %#NEUT 6.75 # LYMP 1.21 #MONO 0.70 #EOS 0.73 #BASO 0.08 MANUAL DIFF NOT IND History Of Immunizations Name Date Admin Mfg Name Mfg Code Trade Name Lot# Route Inj Vis Given Vis Pub CVX Influenza 07/15/2012 [employer] SKB Fluzone [id number] Intramuscular Left Deltoid 07/15/2012 02/09/2012 141 X 07/15/2012 Merck & Co., Inc. MSD Pneumovax 23 [id number] Intramuscular Left Deltoid 07/15/2012 09/11/2011 999 History [...] nevus of neck Nov 18 2016 10:18AM Payers Insurance Name Company Name Plan Name Plan Number Policy Number Policy Group Number Start Date Medicare RHC Medicare RHC [id number] N/A Medicare Part B Medicare [place] [id number] Thursday, 2003 Medicare Part A Medicare Part A [id number] N/A Medicare Part A Medicare - Lab/Xray [id number] N/A History of Encounters Visit Date Visit Type Provider 11/18/2016 Office visit Aleja Newell PELT INSPECTOR 08/12/2016 Office visit Aleja Newell PELT INSPECTOR 08/12/2016 Laboratory Aramis French MD 12/18/2015 Office visit Aleja Newell PELT INSPECTOR 07/02/2015 Office visit Aleja Newell PELT INSPECTOR 09/05/2014 Office visit Ebony Almodovar PELT INSPECTOR 07/03/2014 Office visit Ebony Almodovar PELT INSPECTOR 12/29/2013 Office visit Aleja Newell PELT INSPECTOR 08/17/2013 Office visit Aleja Newell PELT INSPECTOR 06/02/2013 Office visit Aleja Newell PELT INSPECTOR 11/29/2012 Hospital Aramis French MD 11/29/2012 Office visit Aleja Newell PELT INSPECTOR 11/17/2012 Office visit Aleja Newell PELT INSPECTOR 07/15/2012 Office visit Aleja Newell PELT INSPECTOR 12/15/2011 Office visit Aleja Newell PELT INSPECTOR 10/20/2011 Office visit Aleja Newell PELT INSPECTOR 08/29/2011 Office visit Aleja Newell PELT INSPECTOR 03/24/2011 Office visit Aleja Newell PELT INSPECTOR 01/08/2011 Office visit Aleja Newell PELT INSPECTOR 11/08/2010 Office visit Aleja Newell PELT INSPECTOR 08/26/2010 Office visit Aleja Newell PELT INSPECTOR 12/20/2009 Office visit Kareen Benitez MD 08/29/2009 Office visit [facility]
--- OUTSIDE RECORDS SUMMARY | 2018-10-29 06:40 | XMS REPORT ---
Author Author Aleja Newell [facility] Address [address] [place], [place] [address] Care Team Providers Care Payroll And Benefits Specialist Name Role Phone Aleja Newell PCP [...] OF PSA FREE Returned 12/18/2015 12:00 AM Decaddarrin Per 1 Mg [facility]# [address]-76 Reviewed 12/18/2015 12:00 AM Depo-Medrol 40mg Reviewed 08/29/2011 12:00 AM THER/PROPH/DIAG INJ SC/IM Reviewed 08/29/2011 12:00 AM Depo-Medrol 80 mg NDC#[id number]-Oztidmsv Reviewed 10/22/2011 12:00 AM URINALYSIS AUTO W/O SCOPE Reviewed 10/20/2011 12:00 AM URINE CULTURE/COLONY COUNT Reviewed 12/15/2011 12:00 AM THER/PROPH/DIAG INJ SC/IM Reviewed 12/15/2011 12:00 AM Decadron 1 mg NDC#91230517617 (Chad) Reviewed 12/15/2011 12:00 AM Depo-Medrol 80 mg NDC#[id number]-Jazsmrbb Reviewed 07/15/2012 12:00 AM THER/PROPH/DIAG INJ SC/IM Reviewed 07/15/2012 12:00 AM Decadron 1 mg NDC#03082459137 (Chad) Reviewed 07/15/2012 12:00 AM Depo-Medrol 80 mg NDC#[id number]-Kribwdbj Reviewed 07/15/2012 12:00 AM COMPLETE CBC W/AUTO [...] Reviewed 08/26/2010 12:00 AM Decadron 1 mg NDC#62645399892 (Chad) Reviewed 08/26/2010 12:00 AM Depo-Medrol 80 mg NDC#[id number]-Lnihwqqd Reviewed 08/26/2010 12:00 AM THER/PROPH/DIAG INJ SC/IM Reviewed 08/26/2010 12:00 AM Decadron 8 mg NDC#49912071550 (Chad) Reviewed 08/26/2010 12:00 AM Depo-Medrol 80 mg NDC#12439814938-Ssodkcha Reviewed 08/29/2009 12:00 AM FLU VACCINE 3 [...] Reviewed 07/03/2014 12:00 AM Depo-Medrol 80 mg NDC#[address]-48 Reviewed 09/05/2014 11:17 AM URINALYSIS AUTO W/O SCOPE Reviewed 09/05/2014 12:00 AM URINE CULTURE/COLONY COUNT Reviewed 01/08/2011 12:00 AM Depo-Medrol 80 mg NDC#85595322083-Hvrflkoc Reviewed 01/08/2011 12:00 AM Decadron 8 mg NDC#[id number] (Chad) Reviewed 01/09/2015 12:00 AM COMPLETE CBC [...] 14.60 g/dLHCT 45.80 %MCV 87.0 fLMCH 27.60 [facility] 31.90 g/dLRDW SD 44 RDW CV 13.90 %MPV 9.70 fLPLT 183 NRBC# 0.00 NRBC% 0.0 %NEUT 71.10 %%LYMP 12.70 %%MONO 7.40 %%EOS 7.70 %%BASO 0.80 %#NEUT 6.75 # LYMP 1.21 #MONO 0.70 #EOS 0.73 #BASO 0.08 MANUAL DIFF NOT IND History Of Immunizations Name Date Admin Mfg Name Mfg Code Trade Name Lot# Route Inj Vis Given Vis Pub CVX Influenza 07/15/2012 Dexterra SKB Fluzone [id number] Intramuscular Left Deltoid 07/15/2012 02/09/2012 141 X 07/15/2012 Merck & Co., Inc. MSD Pneumovax 23 [id number] Intramuscular Left Deltoid 07/15/2012 09/11/2011 999 History [...] Start Date Medicare Part A Medicare RHC [id number] N/A Medicare Part B Medicare Of [place] [id number] Thursday, 2003 Medicare Part A Medicare Part A [id number] N/A Medicare Part A Medicare - Lab/Xray [id number] N/A History of Encounters Visit Date Visit Type Provider 12/18/2015 Office visit Aleja Newell METEOROLOGICAL ENGINEER 07/02/2015 Office visit Aleja Newell METEOROLOGICAL ENGINEER 09/05/2014 Office visit Ebony Almodovar METEOROLOGICAL ENGINEER 07/03/2014 Office visit Ebony Almodovar METEOROLOGICAL ENGINEER 12/29/2013 Office visit Aleja Newell METEOROLOGICAL ENGINEER 08/17/2013 Office visit Aleja Newell METEOROLOGICAL ENGINEER 06/02/2013 Office visit Aleja Newell METEOROLOGICAL ENGINEER 11/29/2012 [facility] Aramis French MD 11/29/2012 Office visit Aleja Newell METEOROLOGICAL ENGINEER 11/17/2012 Office visit Aleja Newell METEOROLOGICAL ENGINEER 07/15/2012 Office visit Aleja Newell METEOROLOGICAL ENGINEER 12/15/2011 Office visit Aleja Newell METEOROLOGICAL ENGINEER 10/20/2011 Office visit Aleja Newell METEOROLOGICAL ENGINEER 08/29/2011 Office visit Aleja Newell METEOROLOGICAL ENGINEER 03/24/2011 Office visit Aleja Newell METEOROLOGICAL ENGINEER 01/08/2011 Office visit Aleja Newell METEOROLOGICAL ENGINEER 11/08/2010 Office visit Aleja Newell METEOROLOGICAL ENGINEER 08/26/2010 Office visit Aleja eNwell APRN 12/20/2009 Office visit Kareen Benitez MD 08/29/2009 Office visit [facility]
--- OUTSIDE RECORDS SUMMARY | 2018-10-29 06:41 | XMS REPORT ---
Author Author Aleja Newell [facility] Address [address] [place], [place] [address] Care Team Providers Care Tab Card Press Operator Name Role Phone Aleja Newell PCP [...] Reviewed 08/29/2011 12:00 AM Depo-Medrol 80 mg NDC#[id number]-Szahvyls Reviewed 10/22/2011 12:00 AM URINALYSIS AUTO W/O SCOPE Reviewed 10/20/2011 12:00 AM URINE CULTURE/COLONY COUNT Returned 12/15/2011 12:00 AM THER/PROPH/DIAG INJ SC/IM Reviewed 12/15/2011 12:00 AM Decadron 1 mg NDC#[id number] (Chad) Reviewed 12/15/2011 12:00 AM Depo-Medrol 80 mg NDC#88812898697-Alrfzzzy Reviewed 07/15/2012 12:00 AM THER/PROPH/DIAG INJ SC/IM Reviewed 07/15/2012 12:00 AM Decadron 1 mg NDC#29867802360 (Chad) Reviewed 07/15/2012 12:00 AM Depo-Medrol 80 mg NDC#[id number]-Mogkzpwc Reviewed 07/15/2012 12:00 AM COMPLETE CBC W/AUTO [...] Reviewed 08/26/2010 12:00 AM Decadron 1 mg NDC#96139890275 (Chad) Reviewed 08/26/2010 12:00 AM Depo-Medrol 80 mg NDC#[id number]-Porhbpgz Reviewed 08/26/2010 12:00 AM THER/PROPH/DIAG INJ SC/IM Reviewed 08/26/2010 12:00 AM Decadron 8 mg NDC#[id number] (Chad) Reviewed 08/26/2010 12:00 AM Depo-Medrol 80 mg NDC#[id number]-Jwsnpphq Reviewed 08/29/2009 12:00 AM FLU VACCINE 3 [...] Reviewed 07/03/2014 12:00 AM Depo-Medrol [address] [facility]#[address]-38 Reviewed 09/05/2014 11:17 AM URINALYSIS AUTO W/O SCOPE Reviewed 09/05/2014 12:00 AM URINE CULTURE/COLONY COUNT Returned 01/08/2011 12:00 AM Depo-Medrol [address] [facility]#[id number]-Kgaftvwi Reviewed 01/08/2011 12:00 AM [address] [facility]#[id number] (Chad) Reviewed 01/09/2015 12:00 AM COMPLETE CBC [...] Vis Given Vis Pub CVX Influenza 07/15/2012 [employer] SKB Fluzone [id number] Intramuscular Left Deltoid 07/15/2012 02/09/2012 141 Pneumococcal 07/15/2012 Merck & Co., Inc. MSD Pneumovax 23 [id number] Intramuscular Left Deltoid 07/15/2012 09/11/2011 999 History [...] Date Medicare Part A Medicare Part A [id number] N/A Medicare Part B Medicare Of [place] [id number] Thursday, 2003 History of Encounters Visit Date Visit Type Provider 07/02/2015 Office visit Aleja Newell CHEMIST INORGANIC 09/05/2014 Office visit Ebony Almodovar CHEMIST INORGANIC 07/03/2014 Office visit Ebony Almodovar CHEMIST INORGANIC 12/29/2013 Office visit Aleja Newell CHEMIST INORGANIC 08/17/2013 Office visit Aleja Newell CHEMIST INORGANIC 06/02/2013 Office visit Aleja Newell CHEMIST INORGANIC 11/29/2012 [facility] Aramis French MD 11/29/2012 Office visit Aleja Newell CHEMIST INORGANIC 11/17/2012 Office visit Aleja Newell CHEMIST INORGANIC 07/15/2012 Office visit Aleja Newell CHEMIST INORGANIC 12/15/2011 Office visit Aleja Newell CHEMIST INORGANIC 10/20/2011 Office visit Aleja Newell CHEMIST INORGANIC 08/29/2011 Office visit Aleja Newell CHEMIST INORGANIC 03/24/2011 Office visit Aleja Newell CHEMIST INORGANIC 01/08/2011 Office visit Aleja Newell CHEMIST INORGANIC 11/08/2010 Office visit Aleja Newell CHEMIST INORGANIC 08/26/2010 Office visit Aleja Newell CHEMIST INORGANIC 12/20/2009 Office visit Kareen Benitez MD 08/29/2009 Office visit [facility]
--- OUTSIDE RECORDS SUMMARY | 2018-10-29 06:42 | XMS REPORT ---
Author Author Ebony Almodovar [facility] Address [address] [place], [place] [address] Care Team Providers Care Contracting Manager Name Role Phone Ebony Almodovar PCP Unavailable [...] Reviewed 08/29/2011 12:00 AM Depo-Medrol 80 mg NDC#[id number]-Inqsyumo Reviewed 10/22/2011 12:00 AM URINALYSIS AUTO W/O SCOPE Reviewed 10/20/2011 12:00 AM URINE CULTURE/COLONY COUNT Returned 12/15/2011 12:00 AM THER/PROPH/DIAG INJ SC/IM Reviewed 12/15/2011 12:00 AM Decadron 1 mg N[facility]#[id number] (Chad) Reviewed 12/15/2011 12:00 AM Depo-Medrol 80 mg NDC#[id number]-Dnsqccsj Reviewed 07/15/2012 12:00 AM THER/PROPH/DIAG INJ SC/IM Reviewed 07/15/2012 12:00 AM Decadron 1 mg NDC#[id number] (Chad) Reviewed 07/15/2012 12:00 AM Depo-Medrol 80 mg NDC#[id number]-Yhjcnutj Reviewed 07/15/2012 12:00 AM COMPLETE CBC W/AUTO [...] Reviewed 08/26/2010 12:00 AM Decadron 1 mg N[facility]#75260012367 (Chad) Reviewed 08/26/2010 12:00 AM Depo-Medrol 80 mg NDC#[id number]-Ocrjrvwb Reviewed 08/26/2010 12:00 AM THER/PROPH/DIAG INJ SC/IM Reviewed 08/26/2010 12:00 AM Decadron 8 mg NDC#[id number] (Chad) Reviewed 08/26/2010 12:00 AM Depo-Medrol 80 mg NDC#[id number]-Oeguhhdv Reviewed 08/29/2009 12:00 AM FLU VACCINE 3 [...] Reviewed 07/03/2014 12:00 AM Depo-Medrol 80 mg [facility]#[address]-17 Reviewed 09/05/2014 11:17 AM URINALYSIS AUTO W/O SCOPE Reviewed 09/05/2014 12:00 AM URINE CULTURE/COLONY COUNT Returned 01/08/2011 12:00 AM Depo-Medrol 80 mg [facility]#[id number]-Wdmiifre Reviewed 01/08/2011 12:00 AM Decadron 8 mg [facility]#28026144062 (Chad) Reviewed 01/09/2015 12:00 AM COMPLETE CBC [...] Vis Given Vis Pub CVX Influenza 07/15/2012 [employer] SKB Fluzone [id number] Intramuscular Left Deltoid 07/15/2012 02/09/2012 141 Pneumococcal 07/15/2012 [employer]ck & Co., Inc. MSD Pneumovax 23 [id number] Intramuscular Left Deltoid 07/15/2012 09/11/2011 999 History [...] Date Medicare Part A Medicare Part A [id number] N/A Medicare Part B Medicare Of [place] [id number] Thursday, 2003 History of Encounters Visit Date Visit Type Provider 09/05/2014 Office visit Ebony Almodovar BATCH PLANT SUPERVISOR 07/03/2014 Office visit Ebony Almodovar BATCH PLANT SUPERVISOR 12/29/2013 Office visit Aleja Newell BATCH PLANT SUPERVISOR 08/17/2013 Office visit Aleja Newell BATCH PLANT SUPERVISOR 06/02/2013 Office visit Aleja Newell BATCH PLANT SUPERVISOR 11/29/2012 [facility] Aramis French MD 11/29/2012 Office visit Aleja Newell [employer] 11/17/2012 Office visit Aleja Newell [employer] 07/15/2012 Office visit Aleja Newell [employer] 12/15/2011 Office visit Aleja Newell [employer] 10/20/2011 Office visit Aleja Newell [employer] 08/29/2011 Office visit Aleja Newell [employer] 03/24/2011 Office visit Aleja Newell [employer] 01/08/2011 Office visit Aleja Newell [employer] 11/08/2010 Office visit Aleja Newell APRN 08/26/2010 Office visit Aleja Newell [employer] 12/20/2009 Office visit Kareen Benitez MD 08/29/2009 Office visit No [facility]
--- OUTSIDE RECORDS SUMMARY | 2018-10-29 06:42 | XMS REPORT ---
Author Author Aleja Newell [facility] Address [address] [place], [place] [id number] Care Team Providers Care Slack Cooper Name Role Phone Aleja Newell PCP Unavailable [...] 12:00 AM Decadron, Per 1 Mg ND# [address]-20 Reviewed 12/18/2015 12:00 AM Depo-Medrol 40mg Reviewed 08/29/2011 12:00 AM THER/PROPH/DIAG INJ SC/IM Reviewed 08/29/2011 12:00 AM Depo-Medrol 80 mg NDC#[id number]-Twsxfcby Reviewed 08/29/2011 12:00 AM Depo-Medrol 40 mg NDC#[id number] Reviewed 10/22/2011 12:00 AM URINALYSIS AUTO W/O SCOPE Reviewed 10/20/2011 12:00 AM URINE CULTURE/COLONY COUNT Reviewed 08/12/2016 12:00 AM Decadron, Per 1 Mg ND# [address]-98 Reviewed 08/12/2016 12:00 AM Depo-Medrol 40mg Injection Reviewed 08/12/2016 12:00 AM ELECTROCARDIOGRAM TRACING Reviewed 12/15/2011 12:00 AM THER/PROPH/DIAG INJ SC/IM Reviewed 12/15/2011 12:00 AM Decadron 1 mg NDC#[id number] (Chad) Reviewed 12/15/2011 12:00 AM Depo-Medrol 80 mg NDC#[id number]-Qnidrahy Reviewed 11/18/2016 12:00 AM Decadron, Per 1 Mg NDC# [address]-29 Reviewed 11/18/2016 12:00 AM Depo-Medrol 40mg Injection Reviewed 03/09/2017 12:00 AM COMPLETE CBC W/AUTO DIFF WBC Reviewed 03/09/2017 12:00 AM COMPREHEN METABOLIC PANEL Reviewed 03/09/2017 12:00 AM LIPID PANEL Reviewed 03/09/2017 12:00 AM Decadron, Per 1 Mg NDC# [address]-65 Reviewed 03/09/2017 12:00 AM Depo-Medrol 40mg Injection Reviewed 03/09/2017 12:00 AM CHEST X-RAY 2VW FRONTAL&LATL Reviewed 03/09/2017 12:00 AM ASSAY THYROID STIM HORMONE Reviewed 06/17/2017 12:00 AM Decadron, Per 1 Mg ND# [address]-22 Reviewed 06/17/2017 12:00 AM Depo-Medrol, Per 80 Mg [facility]#1786-5656-89 Reviewed 06/17/2017 12:00 AM CHEST X-RAY 2VW FRONTAL&LATL Returned 07/15/2012 12:00 AM THER/PROPH/DIAG INJ SC/IM Reviewed 07/15/2012 12:00 AM Decadron 1 mg NDC#[id number] (Chad) Reviewed 07/15/2012 12:00 AM Depo-Medrol 80 mg NDC#[id number]-Csubbvwj Reviewed 07/15/2012 12:00 AM COMPLETE CBC W/AUTO [...] Reviewed 08/26/2010 12:00 AM Decadron 1 mg NDC#[id number] (Chad) Reviewed 08/26/2010 12:00 AM Depo-Medrol 80 mg NDC#[id number]-Caxbxwbn Reviewed 08/26/2010 12:00 AM THER/PROPH/DIAG INJ SC/IM Reviewed 08/26/2010 12:00 AM Decadron 8 mg [facility]#[id number] (Chad) Reviewed 08/26/2010 12:00 AM Depo-Medrol 80 mg NDC#[id number]-Xvqubamf Reviewed 08/29/2009 12:00 AM FLU VACCINE 3 [...] Reviewed 07/03/2014 12:00 AM Depo-Medrol 80 mg [facility]#[address]-17 Reviewed 09/05/2014 11:17 AM URINALYSIS AUTO W/O SCOPE Reviewed 09/05/2014 12:00 AM URINE CULTURE/COLONY COUNT Reviewed 01/08/2011 12:00 AM Depo-Medrol 80 mg [facility]#[id number]-Rrrqmbhg Reviewed 01/08/2011 12:00 AM Decadron 8 mg [facility]#13984426939 (Chad) Reviewed 01/09/2015 12:00 AM COMPLETE CBC [...] Vis Given Vis Pub CVX Influenza 07/15/2012 [employer] SKB Fluzone [id number] Intramuscular Left Deltoid 07/15/2012 02/09/2012 141 X 07/15/2012 [employer] MSD Pneumovax 23 [id number] Intramuscular Left Deltoid 07/15/2012 09/11/2011 999 History [...] Number Start Date Medicare RHC Medicare RHC [id number] N/A Medicare Part B Medicare Of [place] [id number] Thursday, 2003 Medicare Part A Medicare Part A [id number] N/A Medicare Part A Medicare - Lab/Xray [id number] N/A History of Encounters Visit Date Visit Type Provider 06/17/2017 Office visit Aleja Newell BLENDER 03/09/2017 Office visit Aleja Newell BLENDER 11/18/2016 Office visit Aleja Newell BLENDER 08/12/2016 Office visit Aleja Newell BLENDER 08/12/2016 Laboratory Aramis French MD 12/18/2015 Office visit Aleja Neewll BLENDER 07/02/2015 Office visit Aleja Newell BLENDER 09/05/2014 Office visit Ebony Almodovar BLENDER 07/03/2014 Office visit Ebony Almodovar BLENDER 12/29/2013 Office visit Aleja Newell BLENDER 08/17/2013 Office visit Aleja Newell BLENDER 06/02/2013 Office visit Aleja Newell BLENDER 11/29/2012 Hospital Aramis French MD 11/29/2012 Office visit Aleja Newell BLENDER 11/17/2012 Office visit Aleja Newell BLENDER 07/15/2012 Office visit Aleja Walker BLENDER 12/15/2011 Office visit Aleja Walker BLENDER 10/20/2011 Office visit Aleja Newell BLENDER 08/29/2011 Office visit Aleja Newell BLENDER 03/24/2011 Office visit Aleja Newell BLENDER 01/08/2011 Office visit Aleja Newell BLENDER 11/08/2010 Office visit Aleja Newell BLENDER 08/26/2010 Office visit Aleja Newell BLENDER 12/20/2009 Office visit Kareen Benitez MD 08/29/2009 Office visit No [facility]
--- OUTSIDE RECORDS SUMMARY | 2018-10-29 06:43 | XMS REPORT | Continuity of Care Document ---
Author Author [facility] Organization [facility] Address Unknown Phone Unavailable Allergies Active Description Code Type Severity Reaction Onset Reported/Identified Relationship to Patient Clinical Status Yes AMOXICILLIN 23056015 DRUG N/A HIVES Yes ASACOL 19794658 BRANDNAME N/A N/A Yes ASACOL 28019399 BRANDNAME N/A WEIGHT LOSS,MALNUTRITION Yes CEPHALEXIN 12859928 DRUG N/A N/A Yes KEFLEX 39823557 BRANDNAME N/A ABDOMINAL CRAMPING Yes KEFLEX 74792380 BRANDNAME N/A N/A Yes No Known Environmental Allergies 28567294 N/A N/A Yes No Known Food Allergies 55738389 N/A N/A Yes PREDNISONE DOSE JENNIE [id number] BRANDNAME N/A Rash Yes SULFA (sulfonamide) 02440972 CLASS N/A HIVES Yes SULFA (sulfonamide) 12504010 CLASS N/A Itching; Hives Yes SULFONAMIDE 29373968 CLASS N/A N/A Yes amoxicillin Drug N/A rash Yes predniSONE Drug N/A N/A Yes amoxicillin [id number] Drug Allergy Severe SYNCOPE 10/14/2018 Yes prednisone [id number] Drug Allergy Severe BLISTERS IN BELLO 10/14/2018 Yes amoxicillin [id number] Drug Allergy Unknown N/A 10/14/2018 Yes prednisone [id number] Drug Allergy Unknown N/A 10/14/2018 Medications There is no data. Problems Date Dx Coded Attending Type Code Diagnosis Diagnosed By 09/28/2018 P R05 Cough 09/28/2018 S R509 Fever, unspecified 09/28/2018 S R7989 Other specified abnormal findings of blood chemistry Procedures There is no data. Results Test Result Range Methicillin resistant Staphylococcus aureus (MRSA) screening culture - 12:20 Methicillin resistant Staphylococcus aureus (MRSA) screening culture NEG NRG Encounters ACCT No. Visit Date/Time Discharge Status Pt. Type Provider Facility Loc./Unit Complaint [id number] 10/06/2018 11:59:10 10/06/2018 23:59:59 CLS Outpatient Walker, Aleja [id number] 10/05/2018 15:14:34 10/05/2018 23:59:59 CLS Outpatient Jerzy Day [id number] 09/29/2018 14:09:51 09/29/2018 23:59:59 CLS Outpatient Walker, Aleja [id number] 09/28/2018 16:15:32 09/28/2018 23:59:59 CLS Outpatient Walker, Aleja [id number] 09/02/2018 14:18:28 09/02/2018 23:59:59 CLS Outpatient Walker, Aleja [id number] 07/22/2018 10:25:26 07/22/2018 23:59:59 CLS Outpatient Walker, Aleja [id number] 06/17/2017 10:13:15 06/17/2017 23:59:59 CLS Outpatient Walker, Aleja [id number] 11/18/2016 11:10:57 11/18/2016 23:59:59 CLS Outpatient Walker, Aleja [id number] 10/29/2016 14:06:58 10/29/2016 23:59:59 CLS Outpatient Aramis French [id number] 08/12/2016 14:23:06 08/12/2016 23:59:59 CLS Outpatient Walker, Aleja [id number] 07/02/2015 15:04:42 07/02/2015 23:59:59 CLS Outpatient Walker, Aleja [id number] 09/05/2014 11:49:23 09/05/2014 23:59:59 CLS Outpatient Ebony Almodovar [id number] 07/03/2014 15:22:02 07/03/2014 23:59:59 CLS Outpatient Ebony Almodovar [id number] 12/29/2013 13:54:45 12/29/2013 23:59:59 CLS Outpatient Walker, Aleja [id number] 08/17/2013 11:19:56 08/17/2013 23:59:59 CLS Outpatient Walker, Aleja [id number] 10/01/2018 13:03:39 10/03/2018 10:18:00 DIS Outpatient ALEJA PASTOR Apoorva [facility] IN[facility] asthma exacb [id number] 10/14/2018 11:46:00 10/14/2018 12:43:00 DIS Outpatient MARIZOL DELGADILLO, JERRELL [facility] PREOP [place] [id number] 10/29/2018 06:00:00 ACT Outpatient MARIZOL DELGADILLO, JERRELL Morales [facility] [place] [id number] 10/06/2018 12:09:14 Document Registration [id number] 09/29/2018 13:59:47 Document Registration [id number] 09/28/2018 15:34:28 Document Registration [id number] 07/28/2018 12:30:30 Document Registration [id number] 07/27/2018 08:39:43 Document Registration [id number] 06/18/2017 08:40:03 Document Registration [id number] 06/17/2017 10:27:08 Document Registration
[2018-10-29] MEDS ORDERED: CLINDAMYCIN 600 MG/50 ML IVPB 50 ML IV ONE ×2 (06:45→06:55)
[2018-10-29] MEDS: LACTATED RINGERS 1,000 ML IV PRN ×3 (06:45→09:51)
[2018-10-29] MEDS ORDERED: CATHETER FLUSH 10 ML SYR IV PRN (07:00)
[2018-10-29] MEDS ORDERED: RT-ALBUTEROL SULF 2.5 MG/3 ML PRE-MIX VIAL ONE (07:07)
[2018-10-29] MEDS ORDERED: DEXAMETHASONE 10 MG/ML (DECADRON) 1 ML VIAL ONE (07:08)
[2018-10-29] MEDS ORDERED: ROCURONIUM 10 MG/ML 5 ML SYRINGE IV ONE ×2 (07:08→10:02)
[2018-10-29] MEDS ORDERED: proPOfol 200 MG/20 ML (DIPRIVAN) VIAL IV ONE (07:08)
[2018-10-29] MEDS ORDERED: NEOSTIGMINE 1 MG/ML 5 ML SYRINGE ONE (07:08)
[2018-10-29] MEDS ORDERED: SEVOFLURANE (ULTANE) 15 ML INHAL SOLN ONE ×4 (07:08→10:27)
[2018-10-29] MEDS ORDERED: LIDOCAINE PF 2% 5 ML (XYLOCAINE) VIAL ONE (07:08)
[2018-10-29] MEDS ORDERED: GLYCOPYRROLATE 0.2 MG/ML (ROBINUL) 2 ML VIAL ONE ×2 (07:08→10:31)
[2018-10-29] MEDS ORDERED: ONDANSETRON 4 MG/2 ML (SDV) Z0FRAN ONE ×2 (07:08→10:55)
[2018-10-29] MEDS ORDERED: MIDAZOLAM 2 MG/2 ML (VERSED) VIAL ONE (07:09)
[2018-10-29] MEDS ORDERED: fentaNYL INJECTION 100 MCG/2 ML AMP ONE (07:09)
[2018-10-29] MEDS ORDERED: RT-ALBUTEROL SULF 2.5 MG/3 ML PRE-MIX VIAL IH ONE (07:15)
[2018-10-29] MEDS ORDERED: BUP/EPI 0.5% 1:200,000 (SENSORCAINE) 30 ML VIAL ONE (07:24)
--- NOTE | 2018-10-29 08:21 | Progress Note-Pre Operative ---
Pre-Operative Progress Note H&P Reviewed The H&P was reviewed, patient examined and no changes noted. Date Seen by Provider: Oct 14, 2018 Time Seen by Provider: 14:00 Date H&P Reviewed: Oct 29, 2018 Time H&P Reviewed: 08:20 Pre-Operative Diagnosis: Gallstones JERRELL FONTANA MD Oct 29, 2018 08:21
[2018-10-29] MEDS ORDERED: PHENYLEPHRINE 100 MCG/ML 10 ML (ANESTHESIA) SYR ONE (08:42)
[2018-10-29] MEDS ORDERED: 0.9% SODIUM CHLORIDE PF INJ 20 ML VIAL ONE (09:58)
[2018-10-29] MEDS ORDERED: ACHD5005 PO (10:27)
--- NOTE | 2018-10-29 10:27 | Operative Report ---
Operative Report Date of Procedure/Surgery Oct 29, 2018 Surgeon (s) JERRELL FONTANA MD Ctc Operator (s): N/A Post-Operative Diagnosis Gallstones with chronic cholecystitis Procedure Performed Robotic-assisted cholecystectomy Description of Procedure Anesthesia Type: General Estimated blood loss (mL): 500 mL Specimen(s) collected/removed Gallbladder Description of the Procedure Indication for the procedure: This gentleman had been managed for gallstone pancreatitis, complicated by a small pseudocyst of the pancreas. Once acute symptoms resolved, he came in for cholecystectomy. He was offered minimally invasive technique with robotic assistance. Informed consent was obtained after reviewing the operative details and complications of wound infection, bile leak and cardiorespiratory dysfunction. Description of the procedure: He was placed supine on the operating table and general anesthesia induced. Clindamycin was administered intravenously as prophylaxis against wound infection. Sequential compression devices were placed around his legs, to minimize the risk of venous thrombosis. Abdomen was prepared and draped in the usual sterile manner. Pneumoperitoneum was established using a Veress needle introduced over the supraumbilical region. A 12 mm trocar was placed and anatomy visualized using the high definition, 3-dimensional laparoscope associated with da Sue system. Under direct view, I placed an 8 mm trocar over each side of the abdomen, followed by a 5 mm trocar over the left subcostal region. The patient was then turned into reverse Trendelenburg position, with the right side tilted up. The robotic system was then docked in place. Laparoscopic survey confirmed evidence of chronic cholecystitis with omentum and the pylorus of the stomach, being adherent to the body and infundibulum of the gallbladder. The fundus of the gallbladder was retracted cephalad and omentum taken down using the hook cautery. Cystic duct and artery with delineated carefully and controlled using locking clips. Cholecystectomy was then completed using the hook cautery. During this part of the procedure, venous bleeding from the liver was encountered, contributing to the blood loss. It was controlled using a combination of cautery and direct pressure for at least 12 minutes. Subsequently, adequate hemostasis was confirmed. Topical thrombin solution was placed over the gallbladder fossa, to optimize hemostasis. Gallbladder was then placed in an Endo Catch bag and removed via the supraumbilical trocar site. The fascia over this incision was closed using #1 Vicryl. Subcutaneous tissue was approximated using 3-0 Vicryl and skin using 4- 0 Vicryl, in a subcuticular fashion. 0.5 percent Marcaine with epinephrine was infiltrated along the incisions, both preemptively and at the conclusion of the operation. He tolerated the procedure well, was extubated in the operating room and taken to the recovery room in a stable condition. Findings of the Procedure See operative report Allergies and Home Medications Allergies Coded Allergies: amoxicillin (Verified Allergy, Severe, SYNCOPE, 10/14/18) prednisone (Verified Allergy, Severe, BLISTERS IN MOUTH AND MUCOUS MEMBRANES, 10/14/18) Home Medications Fexofenadine/Pseudoephedrine 1 Each Tab.er.24h, 1 EACH PO DAILY, (Reported) Fluticasone/Salmeterol 1 Each Blst.w.dev, 1 EACH IH BID, (Reported) Lisinopril 10 Mg Tablet, 20 MG PO DAILY, (Reported) Patient Home Medication List Home Medication List Reviewed: Yes JERRELL FONTANA MD Oct 29, 2018 10:27
--- NOTE | 2018-10-29 10:28 | Discharge Inst-Simple/Standard ---
Discharge Inst-Standard Discharge Medications New, Converted or Re-Newed RX: RX on Chart Patient Instructions/Follow Up Plan of Care/Instructions/FU: Band-Aids off in 48 hours. Incentive spirometry. Follow-up next , the Activity as Tolerated: Yes Discharge Diet: No Restrictions JERRELL FONTANA MD Oct 29, 2018 10:28
[2018-10-29] MEDS ORDERED: morphine INJ 10 MG/ML 1ML (SYR OR VIAL) ONE (10:55)
[2018-10-29] MEDS ORDERED: HYDROmorphone 2 MG/ML VIAL (DILAUDID) ONE (10:55)
[2018-10-29] MEDS ORDERED: HYDROmorphone 2 MG/ML VIAL (DILAUDID) IV ONE (11:00)
[2018-10-29] MEDS ORDERED: ONDANSETRON 4 MG/2 ML (SDV) Z0FRAN IVP PRN (11:00)
[2018-10-29] MEDS ORDERED: morphine INJ 10 MG/ML 1ML (SYR OR VIAL) IVP ONE (11:00)
[2018-10-29 11:40] VITALS: BP 113/76
[2018-10-29 11:45] VITALS: BP 113/76
[2018-10-29 12:10] VITALS: BP 115/70
[2018-10-29] MEDS ORDERED: HYDROcodone/APAP 5 MG/325 MG (LORTAB) TAB ONE (12:26)
[2018-10-29] MEDS ORDERED: HYDROcodone/APAP 5 MG/325 MG (LORTAB) TAB PO ONE (12:30)
[2018-10-29 12:40] VITALS: BP 109/79
--- NOTE | 2018-10-29 12:53 | Anesthesia-General Post-Op ---
General Patient Condition Mental Status/LOC: Same as Preop Cardiovascular: Satisfactory Nausea/Vomiting: Absent Respiratory: Satisfactory Pain: Controlled Complications: Absent Post Op Complications Complications None Follow Up Care/Instructions Patient Instructions None needed. Anesthesia/Patient Condition Patient Condition Patient is doing well, no complaints, stable vital signs, no apparent adverse anesthesia problems. No complications reported per nursing. NICOLASA HARRIS CRNA Oct 29, 2018 12:53
[2018-10-29] MEDS ORDERED: ONDANSETRON 4 MG (ZOFRAN) ORAL DISSOLVE TAB ONE (13:52)
== END 2018-10-29 14:04 | disposition home or self-care (01) ==
LOC: SDC 06:00
PROVIDERS: ATTEND Surgery
DX: K81.1 Chronic cholecystitis (principal); K86.3 Pseudocyst of pancreas; I11.0 Hypertensive heart disease with heart failure; I50.9 Heart failure, unspecified; J45.909 Unspecified asthma, uncomplicated; Z79.899 Other long term (current) drug therapy
CPT/HCPCS: 88304; 93005; 94640; 94664

== ENCOUNTER 2019-05-17 14:03 | Outpatient (CLI) | payer MEDICARE ==
[~2019-05-17] VITALS: Ht 180.3 cm; Wt 88.7 kg
[~2019-05-17 14:03] MED LIST changes: +ACHD5005 PO
[2019-05-17 14:13] VITALS: BP 143/101
[2019-05-17] MEDS ORDERED: MONT10TA24 PO (14:17)
[2019-05-17] MEDS ORDERED: ALB0.5V INH (14:17)
== END 2019-05-17 14:25 | disposition home or self-care (01) ==
LOC: PREOP 14:03
PROVIDERS: ATTEND Surgery
DX: Z01.818 Encounter for other preprocedural examination (principal)
CPT/HCPCS: 87081

== ENCOUNTER 2019-05-25 08:32 | Day surgery (SDC) | payer MEDICARE ==
[~2019-05-25] VITALS: Ht 180.3 cm; Wt 88.7 kg
[2019-05-25] VITALS (11 sets, daily range): BP systolic 110–136; BP diastolic 66–101
[~2019-05-25 08:32] MED LIST changes: +ALB0.5V INH; +MONT10TA24 PO
[2019-05-25] MEDS ORDERED: CLINDAMYCIN 600 MG/50 ML IVPB 50 ML IV ONE (08:45)
[2019-05-25] MEDS ORDERED: BUP/EPI 0.5% 1:200,000 (SENSORCAINE) 30 ML VIAL ONE (08:58)
[2019-05-25] MEDS ORDERED: MIDAZOLAM 2 MG/2 ML (VERSED) VIAL IV ONE (09:00)
[2019-05-25] MEDS ORDERED: RT-ALBUTEROL SULF 2.5 MG/3 ML PRE-MIX VIAL INH ONE (09:00)
[2019-05-25] MEDS: LACTATED RINGERS 1,000 ML IV PRN ×2 (09:03→14:20)
[2019-05-25] MEDS ORDERED: NEOSTIGMINE 3 MG/3 ML VIAL ONE (09:05)
[2019-05-25] MEDS ORDERED: LIDOCAINE PF 2% 5 ML (XYLOCAINE) VIAL ONE (09:05)
[2019-05-25] MEDS ORDERED: SEVOFLURANE (ULTANE) 15 ML INHAL SOLN ONE ×4 (09:05→14:22)
[2019-05-25] MEDS ORDERED: GLYCOPYRROLATE 0.2 MG/ML (ROBINUL) 2 ML VIAL ONE (09:05)
[2019-05-25] MEDS ORDERED: ROCURONIUM 10 MG/ML 5 ML SYRINGE IV ONE (09:05)
[2019-05-25] MEDS ORDERED: proPOfol 200 MG/20 ML (DIPRIVAN) VIAL IV ONE (09:05)
[2019-05-25] MEDS ORDERED: fentaNYL INJECTION 100 MCG/2 ML AMP ONE (09:06)
[2019-05-25] MEDS ORDERED: MIDAZOLAM 2 MG/2 ML (VERSED) VIAL ONE (09:06)
[2019-05-25] MEDS ORDERED: RT-ALBUTEROL SULF 2.5 MG/3 ML PRE-MIX VIAL ONE (09:13)
--- NOTE | 2019-05-25 13:31 | Progress Note-Pre Operative ---
Pre-Operative Progress Note H&P Reviewed The H&P was reviewed, patient examined and no changes noted. Time Seen by Provider: 13:27 Date H&P Reviewed: May 25, 2019 Time H&P Reviewed: 13:28 Pre-Operative Diagnosis: Recurrent Right inguinal hernia - incarcerated NICHO ALEJO DO May 25, 2019 13:31
--- NOTE | 2019-05-25 14:21 | Progress Note-Post Operative ---
Post-Operative Progess Note Surgeon (s)/Cooker Helper (s) Surgeon NICHO ALEJO DO Cooker Helper: John Pre-Operative Diagnosis Recurrent Right inguinal hernia - incarcerated Post-Operative Diagnosis same indirect and direct cord limpoma Procedure & Operative Findings Date of Procedure 05/25/19 Procedure Performed/Findings RI with mesh placement Excision of cord lipoma Anesthesia Type GET Estimated Blood Loss Estimated blood loss (mL): scant Specimens/Packing Specimens Removed hernia sac cord lipoma NICHO ALEJO DO May 25, 2019 14:21
[2019-05-25] MEDS ORDERED: ACHD5005 PO (14:22)
--- NOTE | 2019-05-25 14:23 | Discharge Inst-Surgical ---
Discharge Inst-Surgical Depart Medication/Instructions New, Converted or Re-Newed RX: RX Given to Pt/Family Patient Instructions Follow up Appt: Make appointment for 1 week. [phone] Instructions: No lifting greater than 20 pounds. No strenuous activity. May shower in 24 hours, no tub bath or soaking. Use incentive spirometer at home as directed. No Smoking Skin/Wound Care: May remove bandages in am. You need to leave the Dermabond on incision it will fall off on it's own. Symptoms to Report: Appetite Changes, Extremity Discoloration, Numbness/Tingling, Swelling Increased, Bleeding Excessive, Eyesight Changes, Pain Increased, Urine Color Change, Constipation(Persistent), Fever over 101 degree F, Pain/Pressure in chest, Urinating Difficulty, Cough Up/Vomit Blood, Heart Beat Irreg/Pounding, Pain/Pressure in jaw, Cramps in feet or legs, Lightheadedness, Pain/Pressure in shoulder, Diarrhea(Persistent), Memory Changes Suddenly, Questions/Concerns, Weight gain consecutive days, Dizziness/Fainting, Nausea/Vomiting, Shortness of Breath, Weight gain over 2 pounds If questions or concerns contact your physician Or seek help at emergency department. Activity Activity as Tolerated: Yes Activity Instructions: Avoid Stress to Incision Driving Instructions: No Driving/Refer to Dr. Nelson Discharge Diet: No Restrictions Diet After 24 Hours: Clear Liquid if Nauseous If Any Problems/Questions/Issu: Contact Your Physician, Go to Emergency Room Skin/Wound Care Infection Signs and Symptoms: Increased Redness, Foul Odor of Wound, Increased Drainage, Skin Itchy or Has a Rash, Increased Swelling, Temperature Above 101 F Bathing Instructions: Shower Stitches/Angelita/Dermabond Dis: Dermabond Ice Pack: Ice On and Off Site NICHO ALEJO DO May 25, 2019 14:23
[2019-05-25] MEDS ORDERED: ONDANSETRON 4 MG/2 ML (SDV) Z0FRAN IVP PRN (14:45)
[2019-05-25] MEDS ORDERED: HYDROmorphone 2 MG/ML VIAL (DILAUDID) IV ONE (14:45)
--- NOTE | 2019-05-25 17:05 | NUR ---
DSG REMAINS D/I TO RIGHT GROIN SURGICAL SITE, HAS HAD ICE PACK ON AND OFF TO SITE. DENIES COMPLAINTS, TAKING PO FLUIDS WITHOUT PROBLEM. UP WITH ASSIST TO BR, VOIDS WITHOUT PROBLEM, GAIT STEADY. STATES HE IS READY FOR DISMISSAL.
--- NOTE | 2019-05-25 17:32 | Anesthesia-General Post-Op ---
General Patient Condition Mental Status/LOC: Same as Preop Cardiovascular: Satisfactory Nausea/Vomiting: Absent Respiratory: Satisfactory Pain: Controlled Complications: Absent Post Op Complications Complications None Follow Up Care/Instructions Patient Instructions None needed. Anesthesia/Patient Condition Patient Condition Patient was seen after the procedure and he was doing well, no complaints, stable vital signs, no apparent adverse anesthesia problems. CYRIL MERCHANT DO May 25, 2019 17:32
--- NOTE | 2019-05-26 15:22 | OPERATIVE REPORT ---
DATE OF SERVICE: 05/25/2019 PREOPERATIVE DIAGNOSIS: Incarcerated recurrent right inguinal hernia. POSTOPERATIVE DIAGNOSES: 1. Incarcerated recurrent right inguinal hernia with indirect and direct components. 2. Cord lipoma. PROCEDURES: 1. Right inguinal herniorrhaphy with mesh placement. 2. Excision of cord lipoma. SURGEON: Jona Eisenberg DO GUT DROPPER: Jermain Lopez DO ANESTHESIA: General endotracheal tube. SPECIMEN: 1. Hernia sac. 2. Cord lipoma. BLOOD LOSS: Scant. FLUIDS: Per anesthesia. POSTOPERATIVE CONDITION: Stable. INDICATION FOR PROCEDURE: The patient is a 78-year-old male, who had a previous bilateral inguinal hernia repair, came in with bulge in the right inguinal region and complaining of this, diagnosed with incarcerated inguinal hernia. FINDINGS: The patient had an incarcerated right inguinal hernia. It was indirect as well. He had almost no floor of the inguinal canal, so he had direct hernia as well. He also had a large cord lipoma that was removed. PROCEDURE NOTE: After informed consent was obtained, the patient was brought to the operating room, placed on the operating table in supine position, sterilely prepped and draped in normal fashion. Local lidocaine was used to perform ilioinguinal nerve block as well as pubic tubercle block to infiltrate the right inguinal region with local, made an incision with #15 blade, carried down through the skin into subcutaneous tissue, then deepened down to subcutaneous tissue with Bovie electrocautery down to the fascia of the external oblique. External oblique fascia was then infiltrated with local and then went through the external oblique fascia with Bovie electrocautery through the external inguinal ring, grasping the two sides with hemostats and then getting under the external oblique fascia and into the inguinal canal. Upon entering, noted a lot of adhesions from previous hernia repair. Also noted almost no floor of the inguinal canal, found the cord and cord structures, carefully freed these off of the inguinal canal and able to get around them, placed a Mendy drain, pulled in the inferolateral direction. Looking superiorly and medially, found an indirect inguinal hernia sac. There was some fat stuck in there. We were able to open this, pushed this back in and twisted this down and suture ligated this with a 2-0 Vicryl and cut the hernia sac and watched it to retract in. The floor was basically almost no floor probably because of the attempted CESAR repair. I had closed part of the floor behind the cord and cord structures with a 2-0 Vicryl [id number]-[id number] suture, large cord lipoma, this was cut off and passed off the table to get it out of our way and then elected to place a right-sided Parietex mesh, trimmed to fit into the inguinal canal, encircled the cord with a precut hole, sutured it at the pubic tubercle with a 2-0 Vicryl and then placed rest of it up under the external oblique fascia. It actually laid in very nicely, thereby recreating the floor of the inguinal canal and copiously irrigated with normal saline, suctioned this out and then closed the external oblique fascia with a running 3-0 Vicryl, thereby recreating the external inguinal ring. Internal inguinal ring was recreated by the mesh. Then closed the Cj's fascia with 3-0 Vicryl three interrupted sutures, then closed the skin with 4-0 undyed Monocryl in subcuticular fashion. Area was cleaned and dried. Dermabond was placed as well as bandage. The patient was transferred to recovery room in stable condition. Sponge, instrument and needle count correct at the end of the case. Dr. Lopez assisted in this case helping to close incision, identify anatomy and hold anatomy out of the way. Job ID: [id number] DocumentID: [id number] Dictated Date: 05/26/2019 12:31:01 Manager Acquisition Date: 05/26/2019 15:22:01 Dictated By: DO LUZ ALFRED
== END 2019-05-25 17:05 | disposition home or self-care (01) ==
LOC: SDC 08:32
PROVIDERS: ATTEND Surgery
DX: K40.31 Unilateral inguinal hernia, with obstruction, without gangrene, recurrent (principal); D17.9 Benign lipomatous neoplasm, unspecified; I10 Essential (primary) hypertension; J44.9 Chronic obstructive pulmonary disease, unspecified; Z90.49 Acquired absence of other specified parts of digestive tract; Z88.1 Allergy status to other antibiotic agents; Z88.8 Allergy status to other drugs, medicaments and biological substances; Z90.89 Acquired absence of other organs; Z88.2 Allergy status to sulfonamides; Z79.899 Other long term (current) drug therapy; Z83.3 Family history of diabetes mellitus
CPT/HCPCS: 94640